=== PATIENT | male | born 1945 | race Caucasian/White ===

== ENCOUNTER 2020-03-10 12:34 | Emergency (ER) | payer MEDICARE, OTHER, SELFPAY ==
--- NOTE | ~2020-03-10 | XR_ITS ---
XR hand RT min 3V DATE: 03/10/2020 14:38 INDICATION: Fourth and fifth finger dislocation; post reduction examination TECHNIQUE: 3 views of right hand COMPARISON: 03/10/2020 right hand FINDINGS: There is reduction of the posterior dislocation at the proximal interphalangeal joints of t he fourth and fifth digits. Small subtle fracture fragments are suggested at the medial aspect of the proximal interphalangeal joint of the fourth digit and there is suggestion of a linear fracture frag ment at the medial aspect of the head of the proximal phalanx of the fifth digit on the oblique view. More definitive evaluation could be obtained by obtaining 4 view individual fourth digit an individu al fifth digit radiographic examinations. Again noted is virtually nondisplaced fracture of the distal phalanx of the fifth digit. Severe osteoarthritic change at the first carpometacarpal joint. IMPRESSION: Reduction of posterior dislocations at the proximal interphalangeal joints of the fourth and fifth digits. Small associated fractures are suggested Virtually nondisplaced fifth distal phalanx fracture Reviewed, dictated and finalized at location A. IMPRESSION: Reduction of posterior dislocations at the proximal interphalangeal joints of the fourth and fifth digits. Small associated fractures are suggeste d Virtually nondisplaced fifth distal phalanx fracture
--- NOTE | ~2020-03-10 | XR_ITS ---
EXAMINATION: XR hand RT 2V DATE: 03/10/2020 12:59 INDICATION: Trauma to the right hand TECHNIQUE: Posteroanterior, oblique and lateral views of the right hand were obtained. COMPARISON: 07/17/2018 FINDINGS: Dorsal dislocations at the right fourth and fifth proximal interphalangeal joints. No definitive asso ciated fracture. There is however a nondisplaced extra-articular fracture across the proximal metadia physeal region of the right fifth distal phalanx. There is also mild widening of the ulnar side of th e fifth distal interphalangeal joint space. Advanced osteoarthritis at the first carpometacarpal join t with remodeling of the base of the first metacarpal with mild secondary dorsal subluxation. Mild os teoarthritis at the first metacarpophalangeal and a few interphalangeal joints. Chronic tiny metallic foreign body in the soft tissues along the radial side of the third proximal phalanx. IMPRESSION: 1. Nondisplaced extra articular fracture across the right fifth distal phalanx. 2. Dorsal dislocation at the right fourth and fifth proximal interphalangeal joints. 3. 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 Reviewed, dictated and finalized at location A. IMPRESSION: 1. Nondisplaced extra articular fracture across the right fifth distal phalanx. 2. Dorsal dislocation at the right fourth and fifth proximal interphalangeal jerald ints. 3. 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
[2020-03-10 12:39] VITALS: BP 150/88; PULSE 92; RESP 18; TEMP 36.1; O2SAT 96
--- NOTE | 2020-03-10 13:38 | ED.UPPEXIN ---
HPI - Extremity Injury (Upper) General Chief Complaint: Extremity Injury, Upper Stated Complaint: right hand injury Time Seen by Provider: 03/10/20 13:07 Source: patient Mode of arrival: ambulatory Limitations: no limitations History of Present Illness HPI narrative: This is a 74-year-old male that presents the emergency department for right hand injury today. Reports he was walking down some gravel steps and slipped and fell. Reports he caught himself with his right hand. Reports since he has had pain in the right fourth and fifth fingers. Reports decreased range of motion in these fingers. Also reports a superficial laceration. Reports he is up-to-date on tetanus. Denies hitting his head, loss of consciousness, other injuries, weakness, or numbness. Related Data Home Medications Medication Instructions Recorded Confirmed acetaminophen 500 mg tablet 500 mg PO Q4H PRN 09/15/19 01/20/20 metoprolol tartrate 25 mg tablet 25 mg PO BID tablet 09/15/19 03/10/20 omeprazole 20 mg capsule,delayed 20 mg PO DAILY 09/15/19 03/10/20 release potassium chloride 20 mEq 20 meq PO DAILY 09/15/19 03/10/20 tablet,extended release rifaximin 550 mg tablet 550 mg PO BID 09/15/19 03/10/20 Allergies Allergy/AdvReac Type Severity Reaction Status Date / Time amoxicillin Allergy Mild Confusion Verified 01/20/20 09:28 Review of Systems Review of Systems: Narrative: CONSTITUTIONAL: Denies fever CARDIOVASCULAR: Denies chest pain RESPIRATORY: Denies dyspnea. SKIN: Reports laceration MUSCULOSKELETAL: Reports joint pain and myalgia. Denies back pain NEUROLOGIC: Denies headache, numbness, or weakness. All systems reviewed & are unremarkable except as noted in HPI and below PMFSH Past Medical History Medical History (Updated 03/10/20 @ 14:51 by Yocasta Lezama PA-C) Aortic valve disease Arthritis of both hands Bilateral shoulder region arthritis Decubitus ulcer, buttock Essential (primary) hypertension Mixed hyperlipidemia Trigger finger of both hands Social History Social History Smoking status: Current every day smoker Alcohol intake: current Gender identity (if verbalized by the patient): Male Exam Narrative: Exam Narrative: GENERAL: Well-appearing, well-nourished, and in no acute distress. HEAD: Normocephalic, atraumatic. EYES: EOMI. NECK: No midline spinal tenderness CHEST: Clear to auscultation. No respiratory distress. No wheezes rales or rhonchi HEART: Regular rate and rhythm. No murmur heard. Normal peripheral pulses. BACK: No midline spinal tenderness EXTREMITIES: Normal range of motion. No edema. Right 4th and 5th fingers with obvious deformity at the PIP joints. Right 4th finger with superficial skin tear on the palmar surface SKIN: Warm, dry, no rash. NEURO: No focal deficits. Alert and oriented x3. PSYCH: Normal mood and affect Course Vital Signs Vital signs: Vital Signs Temperature 97.0 F L 03/10/20 12:39 Pulse Rate 92 03/10/20 12:39 Respiratory Rate 18 03/10/20 12:39 Blood Pressure 150/88 H 03/10/20 12:39 Pulse Oximetry 96 03/10/20 12:39 Temperature 97.0 F L 03/10/20 12:39 Pulse Rate 92 03/10/20 12:39 Respiratory Rate 18 03/10/20 12:39 Blood Pressure 150/88 H 03/10/20 12:39 Pulse Oximetry 96 03/10/20 12:39 Procedures Orthopedic Joint Reduction Joint #1: Orthopedic Joint Reduction Date: 03/10/20 Orthopedic Joint Reduction Time: 14:52 Side: right Joint Reduction Location: finger (4th) Analgesia: nerve block Pre-Procedure Neuro Vascular Exam: normal Local Anesthesia: lidocaine 1% Amount of anesthesic used (mL): 2 Technique used: direct manipulation Post-reduction neuro exam: intact Post-reduction vascular: intact Post Reduction X-Ray Obtained: Yes Post Reduction X-Ray Results: reduced Splint Applied: Yes Patient [place]
[2020-03-10] MEDS: LIDOCAINE HCL 1% LOCAL INJ 20 ML VIAL INFILTRATE (13:51)
== END 2020-03-10 15:31 | disposition home or self-care (01) ==
PROVIDERS: Emergency Provider Emergency Medicine; PCP Family Medicine
DX: S63.284A Dislocation of proximal interphalangeal joint of right ring finger, initial encounter (principal); S62.666A Nondisplaced fracture of distal phalanx of right little finger, initial encounter for closed fracture; I35.8 Other nonrheumatic aortic valve disorders; M19.042 Primary osteoarthritis, left hand; M19.041 Primary osteoarthritis, right hand; M19.012 Primary osteoarthritis, left shoulder; M19.011 Primary osteoarthritis, right shoulder; I10 Essential (primary) hypertension; E78.2 Mixed hyperlipidemia; F17.200 Nicotine dependence, unspecified, uncomplicated; W10.9XXA Fall (on) (from) unspecified stairs and steps, initial encounter
CPT/HCPCS: 26770; 73120; 73130; 99285

== ENCOUNTER 2022-06-13 09:41 | Outpatient (CLI) | payer MEDICARE, SELFPAY ==
--- NOTE | 2022-06-13 11:00 | NEURO_ITS ---
Impression: # Complains of left foot drop. Status post lower back surgery over 10 years ago. # Abnormal study with no responses from left peroneal, Left posterior tibial nerves with absent F-waves. # Needle/EMG exam abnormal with neurogenic changes though no active fibrilations,. Consistent with old damage at the level of L4-5 # Clinical correlation recommended. Nerve Conduction Studies Anti Sensory Summary Table Stim Site NR Peak (ms) P-T Amp (?V) Site1 Site2 Delta-P (ms) Dist (cm) Sourav (m/s) Left Sup Fibular Anti Sensory (Ant Lat Mall) 14 cm 3.9 15.6 14 cm Ant Lat Mall 3.9 16.0 41 Right Sup Fibular Anti Sensory (Ant Lat Mall) 14 cm 3.7 16.5 14 cm Ant Lat Mall 3.7 16.0 43 Left Sural Anti Sensory (Lat Mall) Calf 3.1 12.7 Calf Lat Mall 3.1 16.0 52 Right Sural Anti Sensory (Lat Mall) Calf 3.4 14.2 Calf Lat Mall 3.4 16.0 47 Motor Summary Table Stim Site NR Onset (ms) O-P Amp (mV) Site1 Site2 Delta-0 (ms) Dist (cm) Sourav (m/s) Left Peroneal Motor (Vastus Med) NO RESPONSE Ankle NR Popit NR Right Peroneal Motor (Vastus Med) Ankle 4.9 3.4 Popit Ankle 9.6 40.0 42 Popit 14.5 3.2 Left Tibial Motor (Abd Perez Brev) NO RESPONSE Ankle NR Knee Ankle 0.0 Knee NR Right Tibial Motor (Abd Perez Brev) Ankle 4.7 0.5 Knee Ankle 11.2 45.0 40 Knee 15.9 0.2 F Wave Studies NR F-Lat (ms) L-R F-Lat (ms) Left Peroneal (Mrkrs) (EDB) DISPERSED RESPONSE NR Right Peroneal (Mrkrs) (EDB) 61.10 Left Tibial (Mrkrs) (Abd Hallucis) DISPERSED RESPONSE NR Right Tibial (Mrkrs) (Abd Hallucis) DISPERSED RESPONSE NR EMG Side Muscle Nerve Root Ins Act Fibs Amp Dur Recrt Comment Right AntTibialis Dp Br Fibular L4-5 Nml Nml Nml Nml Nml Right Gastroc Tibial S1-2 Nml Nml Nml Nml Nml Right Fibularis Long Sup Br Fibular L5-S1 Nml Nml Nml Nml Nml Right Flex Dig Long Tibial L5-S2 Nml Nml Nml Nml Nml Right Ext Dig Brev Dp Br Fibular L5, S1 Nml Nml Nml Nml Nml Left AntTibialis Dp Br Fibular L4-5 Nml Nml Nml Nml Reduced Left Gastroc Tibial S1-2 Nml Nml Nml Nml Reduced Left Fibularis Long Sup Br Fibular L5-S1 Nml Nml Nml Nml Reduced Left Flex Dig Long Tibial L5-S2 Nml Nml Nml Nml Reduced Left Ext Dig Brev Dp Br Fibular L5, S1 Nml Nml Nml Nml Reduced Left ExtHallLong Dp Br Fibular L5, S1 Nml Nml Nml Nml Reduced Left Ext Dig Long Dp Br Fibular L5-S1 Nml Nml Nml Nml Reduced MTDD
== END 2022-06-13 09:42 | disposition home or self-care (01) ==
LOC: ANHNEURO 09:43
PROVIDERS: PCP Family Medicine; Visit Provider Family Medicine
DX: G62.9 Polyneuropathy, unspecified (principal); R94.131 Abnormal electromyogram [EMG]
CPT/HCPCS: 95886; 95910

== ENCOUNTER 2022-08-21 10:12 | Outpatient (RCR) | payer MEDICARE, SELFPAY ==
--- NOTE | 2022-08-21 11:58 | PTOPEVDC ---
Assessment and note entered by Heath Atkinson, PT Thank you for referring Morris Leal to [facility].? An evaluation has been completed. No further treatment is needed. 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 Patient has an AFO for the L foot which he reports has improved his gait where he is no longer falling. Reported Pain Level Pain Score 0: Self Report Assessment PT Clinical Summary Morris is a 77 year old male coming into the clinic with L foot drop. He has an AFO that he reports makes it able to walk without falling, which was an issue prior to the orthotic. Patient demonstrates no strength in the L dorsiflexors. Otherwise 3/5 on the L side and grossly 4-/5 on the R side. Patient informed that physical therapy will probably not be able to get strength back in the anterior tibialis, but can work on endurance and balance along with stretching of the L plantarflexors to prevent further loss of dorsiflexion range of motion, but patient reports he is okay where he is at. He took a copy of calf stretches that he states he will try to do. At this time, no issues that could be addressed with scheduled physical therapy, although I told him to get a new script if he is noticing balance issues which he stated he would. Plan of Care PT Services Indicated No Treatment Frequency and evaluation only Duration
== END 2022-08-21 12:56 | disposition home or self-care (01) ==
LOC: ANHPT 10:12
PROVIDERS: PCP Family Medicine; Visit Provider Family Medicine
DX: M21.372 Foot drop, left foot (principal)
CPT/HCPCS: 97161

== ENCOUNTER 2023-02-13 12:18 | Outpatient (CLI) | payer MEDICARE, SELFPAY ==
--- NOTE | 2023-02-14 07:11 | P.PCNPFT_ITS ---
PFT Procedure Performed PFT Procedure Performed Plethysmography (Lung Vol) Diffusing Cap (DLCO) Flow Vol Loop Spirometry w/o Bronchodil PFT Interpretation This is a pulmonary function test with spirometry, plethysmography and diffusing capacity. The test was performed and results interpreted in accordance with the 2019 and 2005 ATS/ERS Task Force guidelines respectively using the Global Lung Function Initiative-2012 reference equations. Patient demonstrated good effort and cooperation. Reproducibility criteria were met. The quality of the spirometry maneuver was Grade A. Findings: Spirometry: The contour the inspiratory and expiratory flow tracing are normal. The FVC is 3.42 L, 82% predicted. The FEV1 is 2.56 L, 82% predicted. The FEV1: FVC ratio 75%. Plethysmography: The total lung capacity is 6.76 L, 94% predicted. The functional residual capacity is 3.56 L, 92% predicted. The residual volume is 3.11 L, 120% predicted. Diffusing capacity: The diffusing capacity unadjusted for hemoglobin and carboxyhemoglobin is 15.9, 63% predicted. The diffusing capacity adjusted for a lveolar volume is 3.12, 84% predicted. Impression: The spirometry is normal without evidence of an obstructive abnormality. The lung volumes are normal. The diffusing capacity unadjusted for hemoglobin and carboxyhemoglobin is mildly decreased and normalizes when adjusted for alveolar volume. There are no prior studies for comparison
== END 2023-02-13 12:19 | disposition home or self-care (01) ==
PROVIDERS: PCP Family Medicine; Visit Provider Nurse Practitioner Adult Health
DX: R06.02 Shortness of breath (principal)
CPT/HCPCS: 94375; 94726; 94729

== ENCOUNTER 2023-08-24 02:39 | Day surgery (SDC) | payer MEDICARE, SELFPAY ==
[2023-08-15 10:13] VITALS: BMI 35.7
--- NOTE | 2023-08-23 13:28 | WPDANESEPPF ---
Anes - Initial Pre Proc Eval Procedure: Operation Date: 08/24/23 13:00 Proposed Procedures p Screening Colonoscopy - Kavin Verma MD Date/Time: 08/23/23 13:28 Surgeon: Kavin Verma MD Pre Op Diagnosis: neoplasm screening Patient Data Age: 78 Gender: M Height: 1.78 m Weight: 113 kg Allergies Allergy/AdvReac Type Severity Reaction Status Date / Time No Known Allergies Allergy Verified 08/15/23 10:13 Home Medications Medication Instructions Recorded Confirmed Type magnesium 1 tab-cap PO DAILY 04/16/20 08/24/23 History vitamin B complex [B 1 tab-cap PO DAILY 04/16/20 08/24/23 History Complex-Vitamin B12] bisoprolol fumarate 10 mg tablet 10 mg PO DAILY 03/24/21 08/15/23 History acetaminophen 500 mg tablet 500 mg PO Q6H PRN Pain 10/26/21 08/15/23 History (Tylenol Extra Strength) aspirin 325 mg tablet 325 mg PO DAILY PRN pain #90 tabs 05/15/22 08/15/23 Rx omeprazole 20 mg capsule,delayed 20 mg PO DAILY 05/15/22 08/15/23 History release cyclobenzaprine 5 mg tablet 5 mg PO QHS PRN muscle spasm #30 09/26/22 08/15/23 Rx tabs tamsulosin 0.4 mg capsule (Flomax) 0.4 mg PO DAILY #90 caps 10/02/22 08/24/23 Rx dutasteride 0.5 mg capsule 0.5 mg PO DAILY #30 caps 06/01/23 08/15/23 Rx potassium chloride 20 mEq 20 meq PO DAILY #90 tabs 06/01/23 08/15/23 Rx tablet,extended release pregabalin 75 mg capsule 75 mg PO BID #60 caps 06/01/23 08/15/23 Rx atorvastatin 40 mg tablet 40 mg PO DAILY #90 tabs 08/02/23 08/15/23 Rx Patient hx anesthesia problems: none Family hx anesthesia problems: none Results Review: All pre-operative results and documents have been reviewed as part of the pre-operative evaluation. [facility] Past Medical History Medical History Abnormality of heart beat Aortic valve disease Arthralgia Arthritis of both hands Arthritis of shoulder region, right, degenerative Bilateral shoulder region arthritis BMI 35.0-35.9,adult BMI 36.0-36.9,adult BMI 38.0-38.9,adult BMI 39.0-39.9,adult Changing skin lesion Chest wall tenderness Chills Constipation Decubitus ulcer, buttock Diarrhea Dizzinesses Dyspnea on exertion Essential (primary) hypertension Fever Headache Hesitancy High blood pressure High cholesterol Hoarseness Mixed hyperlipidemia Nausea Other abnormalities of heart beat Right rotator cuff tendinitis Shortness of breath Stomach pain Subscapularis tendinitis of right shoulder Trigger finger of both hands Weight loss Surgical History Surgical History Status post aortic valve replacement with bioprosthetic valve Family History Family History Mother Hypertension Family history of coronary artery disease Father Hypertension Family history of coronary artery disease CHF (congestive heart failure) Sibling Hypertension Family history of coronary artery disease Acute myocardial infarction Cerebrovascular accident Other Family history of seizure disorder Social History Social History Smoking packs per day: 1 Smoking cigarettes per day: 20.0 Years smoked: 5 Smoking pack-years: 5.00 Smoking status: Current every day smoker Tobacco type: cigarettes Second hand tobacco smoke exposure: No Alcohol intake: current Alcohol use details: occasionally Substance use: never Substance use type: does not use Lack of Transportation: No Lack of Food: Never True Current Housing: I Have Housing Concerned About Future Housing: No Difficulty Paying Gas/Electric Bills: No Difficulty Paying for Meds: No Currently Unemployed: No Education: Bachelor's Degree Difficulty w/ Childcare or Family Care: No Living arrangements: with family Occupation/Education: retired Additional occupat
--- NOTE | 2023-08-24 11:35 | PM.HPGS ---
History of Present Illness History of Present Illness Consent: Risks, benefits, and alternatives have been discussed and questions answered. Patient agrees to proceed with procedure. Chief complaint: neoplasm screening Narrative: Morris Leal is a 78 year old male who was referred for colon cancer screening. His last colonoscopy was about 4 years ago. Review of Systems Review of Systems: All systems reviewed & are unremarkable except as noted in HPI and below PMFSH Past Medical History Medical History Abnormality of heart beat Aortic valve disease Arthralgia Arthritis of both hands Arthritis of shoulder region, right, degenerative Bilateral shoulder region arthritis BMI 35.0-35.9,adult BMI 36.0-36.9,adult BMI 38.0-38.9,adult BMI 39.0-39.9,adult Changing skin lesion Chest wall tenderness Chills Constipation Decubitus ulcer, buttock Diarrhea Dizzinesses Dyspnea on exertion Essential (primary) hypertension Fever Headache Hesitancy High blood pressure High cholesterol Hoarseness Mixed hyperlipidemia Nausea Other abnormalities of heart beat Right rotator cuff tendinitis Shortness of breath Stomach pain Subscapularis tendinitis of right shoulder Trigger finger of both hands Weight loss Surgical History Surgical History Status post aortic valve replacement with bioprosthetic valve Family History Family History Mother Hypertension Family history of coronary artery disease Father Hypertension Family history of coronary artery disease CHF (congestive heart failure) Sibling Hypertension Family history of coronary artery disease Acute myocardial infarction Cerebrovascular accident Other Family history of seizure disorder Social History Social History Smoking packs per day: 1 Smoking cigarettes per day: 20.0 Years smoked: 5 Smoking pack-years: 5.00 Smoking status: Current every day smoker Tobacco type: cigarettes Second hand tobacco smoke exposure: No Alcohol intake: current Alcohol use details: occasionally Substance use: never Substance use type: does not use Lack of Transportation: No Lack of Food: Never True Current Housing: I Have Housing Concerned About Future Housing: No Difficulty Paying Gas/Electric Bills: No Difficulty Paying for Meds: No Currently Unemployed: No Education: Bachelor's Degree Difficulty w/ Childcare or Family Care: No Living arrangements: with family Occupation/Education: retired 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 Gender identity (if verbalized by the patient): Male Spiritual care concerns: No Meds Home Medications and Allergies Home Medications Medication Instructions Recorded Confirmed Type magnesium 1 tab-cap PO DAILY 04/16/20 08/24/23 History vitamin B complex [B 1 tab-cap PO DAILY 04/16/20 08/24/23 History Complex-Vitamin B12] bisoprolol fumarate 10 mg tablet 10 mg PO DAILY 03/24/21 08/15/23 History acetaminophen 500 mg tablet 500 mg PO Q6H PRN Pain 10/26/21 08/15/23 History (Tylenol Extra Strength) aspirin 325 mg tablet 325 mg PO DAILY PRN pain #90 tabs 05/15/22 08/15/23 Rx omeprazole 20 mg capsule,delayed 20 mg PO DAILY 05/15/22 08/15/23 History release cyclobenzaprine 5 mg tablet 5 mg PO QHS PRN muscle spasm #30 09/26/22 08/15/23 Rx tabs tamsulosin 0.4 mg capsule (Flomax) 0.4 mg PO DAILY #90 caps 10/02/22 08/24/23 Rx potassium chloride 20 mEq 20 meq PO DAILY #90 tabs 06/01/23 08/15/23 Rx tablet,extended release pregabalin 75 mg capsule 75 mg PO BID #60 caps 06/01/23 08/15/23 Rx atorvastatin 40 mg tablet 40 mg PO DAILY #90 tabs 08/02/23 08/15/23 Rx dutasteride 0.5 mg capsule 0.5 mg PO DAILY #30
[2023-08-24 11:40] VITALS: BP 134/62; PULSE 72; RESP 18; TEMP 36.5; O2SAT 99
[2023-08-24] MEDS: LACTATED RINGERS 1,000 ML 150 ML IV CONT (11:50)
[2023-08-24] MEDS: GENTAMICIN 80MG/SOD CHL 50 ML 80 MG/50 ML BAG 100 MG IVPB (11:51)
[2023-08-24] MEDS: AMPICILLIN 2 GM/NS 100 ML 2 GM/100 ML BAG IVPB (12:18)
[2023-08-24 12:58] VITALS: BP 104/58; PULSE 68; RESP 19; O2SAT 98
[2023-08-24 13:08] VITALS: BP 114/63; PULSE 68; RESP 21; O2SAT 98
[2023-08-24 13:18] VITALS: BP 119/62; PULSE 70; RESP 20; O2SAT 99
== END 2023-08-24 13:36 | disposition home or self-care (01) ==
PROVIDERS: PCP Family Medicine; Visit Provider Internal Medicine Gastroenterology
PROC: 0DJD8ZZ Inspection of Lower Intestinal Tract, Via Natural or Artificial Opening Endoscopic (ICD-10-PCS; CPT 45378; principal; 2023-08-24 13:00)
DX: Z12.11 Encounter for screening for malignant neoplasm of colon (principal); K64.8 Other hemorrhoids; K92.2 Gastrointestinal hemorrhage, unspecified; I10 Essential (primary) hypertension; E78.00 Pure hypercholesterolemia, unspecified; Z95.2 Presence of prosthetic heart valve; F17.210 Nicotine dependence, cigarettes, uncomplicated; Z79.82 Long term (current) use of aspirin; E66.9 Obesity, unspecified; Z68.35 Body mass index [BMI] 35.0-35.9, adult
CPT/HCPCS: G0121; J0290; J1580; J2704; J7120

== ENCOUNTER 2023-09-04 13:49 | Emergency (ER) | payer MEDICARE, SELFPAY ==
[2023-09-04] VITALS (19 sets, daily range): BP systolic 125–166; BP diastolic 55–74; PULSE 73–90; RESP 12–20; TEMP 36.7–36.9; O2SAT 96–100
[2023-09-04 14:34] LABS: Alanine Aminotransferase 27 U/L (6-50); Albumin Level 3.8 g/dL (3.5-5.1); Alkaline Phosphatase 116 U/L (38-126); Anion Gap 10 mmol/L (8-16); Aspartate Amino Transferase 41 U/L (17-59); Bilirubin,Total 0.5 mg/dL (0.2-1.3); Blood Urea Nitrogen 19 mg/dL (9-20); Calcium 8.7 mg/dL (8.4-10.2); Carbon Dioxide 25 mmol/L (22-30); Chloride 103 mmol/L (98-107); Estimated CRCL calculation 114 ml/min; Estimated Glomerular Filt Rate > 60; Glucose 139 mg/dL (65-110); INR 1.1; Potassium 4.1 mmol/L (3.4-5.0); Prothrombin Time 14.9 Seconds (11.1-14.7); Sodium 138 mmol/L (137-145)
[2023-09-04 14:35] LABS: Partial Thromboplastin Time 33.7 SECONDS (22.3-36.8)
[2023-09-04 15:00] LABS: Basophils Absolute Auto 0.1 K/mm3 (0.0-0.1); Basophils Percent Auto 1.8 % (0.2-1.2); Eosinophils Absolute Auto 0.3 K/mm3 (0-0.3); Eosinophils Percent Auto 5.5 % (0-4.4); Immature Granulocyte Absolute 0.21 K/mm3 (0.00-0.031); Immature Granulocyte Percent A 4.6 % (0-0.5); Lymphocytes Absolute Auto 2.27 K/mm3 (0.9-3.2); Lymphocytes Percent Auto 50.1 % (18.3-44.2); Mean Corpuscular HGB Conc 32.5 g/dl (32-36); Mean Corpuscular Hemoglobin 37.5 pg (26-34); Mean Corpuscular Volume 115.5 fl (80-100); Mean Platelet Volume 10.3 fl (7.4-10.4); Monocytes Absolute Auto 0.5 K/mm3 (0.1-0.6); Monocytes Percent Auto 11.5 % (2.6-8.5); Neutrophils Absolute Auto 1.2 K/mm3 (1.3-6.7); Neutrophils Percent Auto 26.5 % (45.5-73.1); Platelet Count Result 202 k/mm3 (150-375); Red Blood Count 1.68 M/mm3 (4.6-6.20); Red Cell Distribution Width 18.2 % (11.5-14.5); White Blood Count 4.5 K/mm3 (4.5-10.0)
[2023-09-04 15:06] LABS: Hemoglobin 6.3 g/dL (14.0-18.0)
[2023-09-04 15:08] LABS: Hematocrit 19.4 % (42.0-52.0)
[2023-09-04 15:09] LABS: Macrocytosis 1+ (NORMAL); Ovalocytes 1+ (NORMAL); Platelet Estimate Adequate (Adequate); Schistocytes None Seen (NORMAL)
--- NOTE | 2023-09-04 16:37 | ED.GENADULT ---
HPI - General Adult General Chief complaint: Recheck/Abnormal Lab/Rx Stated complaint: low hemoglobin Time Seen by Provider: 09/04/23 15:50 History of Present Illness HPI narrative: Patient is a 78-year-old male who presents to the emergency department this afternoon after he was sent in by his PCP due to a low hemoglobin. Patient's hemoglobin was around 6. Patient admits that he does have a history of bleeding internal hemorrhoids and recently saw Dr. Verma with GI 11 days ago for colonoscopy which identified the internal hemorrhoids. Patient admits that he has no external hemorrhoids and states that in the past with his internal hemorrhoids with prolapse he would push them back in without any issues. He denies any fissures or any active bleeding at this time, states that his bleeding is only when he has a bowel movement. His turret press operator did tell him that he needs follow-up with a surgeon, and the patient does have an appointment tomorrow with Dr. Givens. Patient is currently asymptomatic and hemodynamically stable. Patient denies any chest pain, shortness of breath, nausea, vomiting, abdominal pain, dysuria, hematuria, constipation, diarrhea, melena, hematochezia, fevers or chills. He also denies any headaches, dizziness, lightheadedness, blurry visions, dizziness, focal weakness, numbness and or tingling. There are no other modifying, alleviating, or precipitating factors at this time. Related Data Home Medications Medication Instructions Recorded Confirmed magnesium 1 tab-cap PO DAILY 04/16/20 08/24/23 vitamin B complex [B 1 tab-cap PO DAILY 04/16/20 08/24/23 Complex-Vitamin B12] bisoprolol fumarate 10 mg tablet 10 mg PO DAILY 03/24/21 08/15/23 acetaminophen 500 mg tablet 500 mg PO Q6H PRN Pain 10/26/21 08/15/23 (Tylenol Extra Strength) omeprazole 20 mg capsule,delayed 20 mg PO DAILY 05/15/22 08/15/23 release Allergies Allergy/AdvReac Type Severity Reaction Status Date / Time No Known Allergies Allergy Verified 08/15/23 10:13 Review of Systems Review of Systems: All systems are reviewed and are negative unless stated otherwise in the HPI. [facility] Past Medical History Medical History Abnormality of heart beat Aortic valve disease Arthralgia Arthritis of both hands Arthritis of shoulder region, right, degenerative Bilateral shoulder region arthritis BMI 35.0-35.9,adult BMI 36.0-36.9,adult BMI 38.0-38.9,adult BMI 39.0-39.9,adult Changing skin lesion Chest wall tenderness Chills Constipation Decubitus ulcer, buttock Diarrhea Dizzinesses Dyspnea on exertion Essential (primary) hypertension Fever Headache Hesitancy High blood pressure High cholesterol Hoarseness Mixed hyperlipidemia Nausea Other abnormalities of heart beat Right rotator cuff tendinitis Shortness of breath Stomach pain Subscapularis tendinitis of right shoulder Trigger finger of both hands Weight loss Surgical History Surgical History Status post aortic valve replacement with bioprosthetic valve Family History Family History Mother Hypertension Family history of coronary artery disease Father Hypertension Family history of coronary artery disease CHF (congestive heart failure) Sibling Hypertension Family history of coronary artery disease Acute myocardial infarction Cerebrovascular accident Other Family history of seizure disorder Social History Social History Smoking packs per day: 1 Smoking cigarettes per day: 20.0 Years smoked: 5 Smoking pack-years: 5.00 Smoking status: Current every day smoker Tobacco type: cigarettes Second hand tobacco smoke exposure: No Alcohol intake: current Alcohol use details: occasionally Sub
[2023-09-04] MEDS: SODIUM CHLORIDE 0.9% IV 250 ML 30 ML IV CONT (17:39)
--- NOTE | 2023-09-04 17:50 | PC.NURSE ---
blood consent signed and in chart
[2023-09-04 20:57] LABS: Hematocrit 21.7 % (42.0-52.0)
== END 2023-09-04 21:17 | disposition home or self-care (01) ==
PROVIDERS: Emergency Provider Emergency Medicine; PCP Family Medicine
DX: D64.9 Anemia, unspecified (principal); K64.8 Other hemorrhoids; I10 Essential (primary) hypertension; E78.2 Mixed hyperlipidemia; F17.210 Nicotine dependence, cigarettes, uncomplicated; I25.10 Atherosclerotic heart disease of native coronary artery without angina pectoris
CPT/HCPCS: 36415; 36430; 80053; 85014; 85018; 85025; 85610; 85730; 86850; 86900; 86901; 86923; 96360; 96361; 99285; J7050; P9016

== ENCOUNTER 2023-09-05 10:30 | Inpatient (IN) | payer MEDICARE, SELFPAY ==
--- NOTE | ~2023-09-05 | CT_ITS ---
EXAMINATION: CTA abdomen pelvis DATE: 09/05/2023 22:16 INDICATION: GI bleeding TECHNIQUE: Computed tomography (CT) of the abdomen and pelvis was performed without and with 100 mL O mnipaque-350 intravenous contrast. Postcontrast images timed to the arterial phase. Automated exposur e control and iterative reconstruction technique were employed. The dose-length product was 2985.04 m Gy-cm. COMPARISON: None. FINDINGS: Lower thorax: UIP pattern of peripheral and basilar reticular opacities. Cardiomegaly. Coronary arter y calcification. Liver: Suggestion of a nodular liver border. Peripheral, 4.0 cm masslike area of hyperenhancement at the junction of segment 4A/4B. Biliary/Gallbladder: Gallbladder is normal. No bile duct dilation. Pancreas: No mass or duct dilation. Spleen: Normal. Adrenals:No mass. Kidneys: No suspicious mass, obstructing stone, or hydronephrosis. GI tract: No active GI bleeding. No small or large bowel dilation. Appendix not confidently visualize d Mesentery/Peritoneum: No ascites, mass, or free air. Retroperitoneum: No mass. Atherosclerotic abdominal aortic and/or arterial calcifications. Pelvis: Pelvic organs are within normal limits. Large bilateral hydroceles. Soft Tissues: Soft tissues and body wall unremarkable. Bones: No acute osseous finding. Uncomplicated posterior lumbar fusion hardware. IMPRESSION: No active GI bleeding detected. Possible cirrhotic change in the liver. 4 cm masslike hyperenhancement at the junction of segment 4A/4B. Recommend MRI of the liver without a nd with contrast for further characterization. Bilateral hydroceles. Reviewed, dictated and finalized at location K. N RESOURCES BENEFITS SPECIALIST IMPRESSION: No active GI bleeding detected. Possible cirrhotic change in the liver. 4 cm masslike hyperenhancement at the junction of segment 4A/4B. Recommend MRI of the liver without and with contrast for further characterization. Bilateral hydroceles.
--- NOTE | ~2023-09-05 | US_ITS ---
EXAMINATION: US venous doppler [facility] DATE: 09/09/2023 19:55 INDICATION: left calf pain, swelling . TECHNIQUE: Grayscale images without and with compression and Doppler images of the left lower extremi ty veins were obtained. COMPARISON: None FINDINGS: The left common femoral vein, profunda (deep) femoral vein, femoral vein, popliteal vein, peroneal v ein, posterior tibial veins, gastrocnemius vein, and greater saphenous vein are patent. IMPRESSION: Patent left lower extremity veins. No evidence of deep venous thrombosis. Reviewed, dictated and finalized at location K. SSEAU CONSULTANT
--- NOTE | ~2023-09-05 | NM_ITS ---
EXAMINATION: NM leland stress w perfusion DATE: 09/06/2023 15:33 INDICATION: Shortness of breath TECHNIQUE: Rest images were obtained following intravenous administration of 8.5 mCi Tc99m tetrofosmi n (Myoview). The patient was infused intravenously with Lexiscan (Regadenoson). Then, 37.4 mCi Tc99m tetrofosmin (Myoview) was administered intravenously, and stress images were obtained. Data was recon structed into short axis and horizontal and vertical long axis SPECT images. Gated SPECT images were also obtained. COMPARISON: None. FINDINGS: Small mild defect on the non gated stress and rest images at the apical lateral segment and small mild defect at the apical inferior segment on the non gated post stress images, both of which normalize on the gated post stress imaging. No definitive perfusion defects on the gated post stress imaging to suggest ischemia or infarct. There is normal left ventricular chamber size, wall motion an d ejection fraction. Left ventricular ejection fraction measures 67%. IMPRESSION: 1. No definitive perfusion defects to suggest ischemia or infarct.. 2. Left ventricular ejection fraction measuring 67%. Reviewed, dictated and finalized at location A. VISION NEWSCAST DIRECTOR
--- NOTE | 2023-09-05 12:20 | PC.NURSE ---
RN called Dr Givens's office to get orders for patient. Awaiting a call back.
--- NOTE | 2023-09-05 12:28 | PC.NURSE ---
RN spoke with Dr. Givens via telephone. He states patient's needs a work up and Dr. Matthew is the accepting. RN called Dr. Matthew and no answer at this time. Will call again as RN needs orders for patient.
--- NOTE | 2023-09-05 12:38 | PC.NURSE ---
RN spoke with Komal via telephone and udated him that patient was on unit.
--- NOTE | 2023-09-05 13:34 | PC.NURSE ---
RN waiting for hospitalist to come see patient and put orders in. casino slot supervisor and Induction Coordination Engineer notified.
[2023-09-05 13:46] VITALS: BP 121/52; PULSE 67; RESP 16; TEMP 36.3; O2SAT 70
--- NOTE | 2023-09-05 14:11 | PC.NURSE ---
This patient, Morris Leal, was admitted to Medical Room 349-01. Patient/family oriented to hospital policies and general routines including ID bracelet, bed and alarms, visiting hours, pain management, procedures, bathroom and other care routines, personal items, smoking policy, room service/diet, and visiting hours. Information on how to activate the Rapid Response Team has been discussed. Patient/Family are encouraged to report perceived risks to care and to ask questions if they do not understand what they are told or what they should do.
[2023-09-05] MEDS: LACTATED RINGERS 1,000 ML 100 ML IV CONT (18:05)
[2023-09-05 18:32] LABS: Mean Corpuscular HGB Conc 32.5 g/dl (32-36); Mean Corpuscular Hemoglobin 36.2 pg (26-34); Mean Corpuscular Volume 111.4 fl (80-100); Platelet Count Result 151 k/mm3 (150-375); Red Blood Count 1.85 M/mm3 (4.6-6.20); Red Cell Distribution Width 20.2 % (11.5-14.5); White Blood Count 3.5 K/mm3 (4.5-10.0)
[2023-09-05 18:43] LABS: Alanine Aminotransferase 25 U/L (6-50); Albumin Level 3.7 g/dL (3.5-5.1); Alkaline Phosphatase 122 U/L (38-126); Anion Gap 10 mmol/L (8-16); Aspartate Amino Transferase 40 U/L (17-59); Bilirubin,Total 0.5 mg/dL (0.2-1.3); Blood Urea Nitrogen 17 mg/dL (9-20); Calcium 8.4 mg/dL (8.4-10.2); Carbon Dioxide 25 mmol/L (22-30); Chloride 102 mmol/L (98-107); Estimated CRCL calculation 112 ml/min; Estimated Glomerular Filt Rate > 60; Glucose 133 mg/dL (65-110); Potassium 4.4 mmol/L (3.4-5.0); Sodium 137 mmol/L (137-145)
[2023-09-05 18:44] LABS: Hemoglobin 6.7 g/dL (14.0-18.0)
[2023-09-05 18:45] LABS: Hematocrit 20.6 % (42.0-52.0)
[2023-09-05 18:56] LABS: INR 1.1; Prothrombin Time 14.5 Seconds (11.1-14.7)
[2023-09-05 18:57] LABS: Partial Thromboplastin Time 34.4 SECONDS (22.3-36.8)
--- NOTE | 2023-09-05 19:28 | PM.IMHP ---
H&P: HPI History of Present Illness Date/Time: 09/05/23 19:28 Chief Complaint: Rectal Bleeding Narrative: 78 y/o M presents here with bleeding per rectum with PMH of aortic valve disease, HTN, HLD, headaches, neuropathy, hemorrhoids, and uveitis. Currently awaiting rheumatology workup, likely for RA. Patient reports that he had a colonoscopy performed on 08/24 that revealed bleeding internal hemorrhoids. Since procedure was completed he reports that he has had passage of blood and clots 5-10 times per day. Was referred to general surgery for possible hemorrhoidectomy, has had previous history of bleeding hemorrhoids. In interim, saw his corrections specialist on 09/04? where he discussed these symptoms. Barrel Waterer ordered lab work, while awaiting results. Patient became increasingly weak and hypotensive. Patient then sought treatment in the ED on 09/04. Hemoglobin was 6.3, given 1 unit of red blood cells. Repeat hemoglobin was 7. Patient was discharged due to recent GI workup and general surgery appointment the following day, 09/05. while at this appointment with MD Chon he reported increasing weakness and dizziness, continued passage of blood per rectum. Patient was then sent for direct admission for repeat CBC, BMP, and cardiac workup for surgical clearance in the event it is warranted. Initial admission lab work revealed hemoglobin of 6.7 and hematocrit of 20.6, otherwise unremarkable. Vital stable, blood pressure on low and with map greater than 65. Reports passage of blood 3 times today, described as maroon with clots. Last bowel movement was today - brown, normal consistency, w/o straining. A/Ox4. Review of Systems Review of Systems: All systems reviewed & are unremarkable except as noted in HPI and below [facility] Past Medical History Medical History Abnormality of heart beat Aortic valve disease Arthralgia Arthritis of both hands Arthritis of shoulder region, right, degenerative Bilateral shoulder region arthritis BMI 35.0-35.9,adult Changing skin lesion Chest wall tenderness Chills Constipation Decubitus ulcer, buttock Diarrhea Dizzinesses Dyspnea on exertion Essential (primary) hypertension Fever Headache Hesitancy High blood pressure High cholesterol Hoarseness Mixed hyperlipidemia Nausea Other abnormalities of heart beat Right rotator cuff tendinitis Shortness of breath Stomach pain Subscapularis tendinitis of right shoulder Trigger finger of both hands Weight loss Surgical History Surgical History History of back surgery Status post aortic valve replacement with bioprosthetic valve Family History Family History Mother Hypertension Family history of coronary artery disease Father Hypertension Family history of coronary artery disease CHF (congestive heart failure) Sibling Hypertension Family history of coronary artery disease Acute myocardial infarction Cerebrovascular accident Other Family history of seizure disorder Social History Social History (Updated 09/06/23 @ 02:52 by Mirna Vega APRN) Social History: Lives at home with his . Surrogate decision maker: Lyndsey Leal, spouse. Code Status: Full Code. Smoking packs per day: 1 Smoking cigarettes per day: 20.0 Years smoked: 5 Smoking pack-years: 5.00 Smoking status: Current every day smoker Tobacco type: cigarettes Second hand tobacco smoke exposure: No Alcohol intake: current Alcohol use details: occasionally Substance use: never Substance use type: does not use Lack of Transportation: No Lack of Food: Never True Current Housing: I Have Housing Concerned About Future Housing: No Difficulty Paying Gas/Electric Bills: No Difficulty Paying for Meds: No Currently U
[2023-09-05 20:00] VITALS: PULSE 85
[2023-09-05 21:38] VITALS: BP 115/52; PULSE 83; RESP 16; TEMP 37; O2SAT 100
[2023-09-05] MEDS: SODIUM CHLORIDE 0.9% IV 250 ML 30 ML IV CONT (21:45)
[2023-09-05 21:56] VITALS: BP 132/63; PULSE 82; RESP 16; TEMP 36.9; O2SAT 99
[2023-09-05 22:56] VITALS: BP 127/48; PULSE 87; RESP 18; TEMP 36.9; O2SAT 96
[2023-09-05 23:56] VITALS: BP 124/57; PULSE 89; RESP 18; TEMP 37.1; O2SAT 98
[2023-09-06] VITALS (13 sets, daily range): BP systolic 117–141; BP diastolic 54–75; PULSE 69–95; RESP 14–18; TEMP 36.3–37.1; O2SAT 96–100
--- NOTE | 2023-09-06 | ECG_ITS ---
Measurements Intervals Waterflow Rate: 81 P: 64 WA: 280 QRS: 33 QRSD: 101 T: 3 QT: 373 QTc: 435 Interpretive Statements SINUS RHYTHM WITH FIRST DEGREE AV BLOCK FREQUENT VENTRICULAR PREMATURE COMPLEXES INCOMPLETE RIGHT BUNDLE BRANCH BLOCK BORDERLINE T WAVE ABNORMALITY- INFERIOR LEADS ABNORMAL ECG COMPARED TO ECG 11/25/2018 15:23:17 VENTRICULAR PREMATURE COMPLEXES NOW PRESENT Electronically Signed On 09-06-2023 9:50:04 FRENCH EDGE OPERATOR by Zoran Alan D.O.
[2023-09-06 01:34] LABS: Hematocrit 20.8 % (42.0-52.0); Hemoglobin 6.7 g/dL (14.0-18.0)
[2023-09-06] MEDS: SODIUM CHLORIDE 0.9% IV 250 ML 30 ML IV CONT (04:09)
[2023-09-06] MEDS: ACETAMINOPHEN 500 MG TABLET PO (04:15)
[2023-09-06] MEDS: TAMSULOSIN HCL 0.4 MG CAPSULE PO (08:12)
[2023-09-06] MEDS: THIAMINE HCL 100 MG TABLET PO (08:12)
[2023-09-06] MEDS: CEPHALEXIN 500 MG CAPSULE PO ×2 (08:12→17:19)
[2023-09-06] MEDS: PANTOPRAZOLE SODIUM IV 40 MG VIAL IV PUSH ×2 (08:12→20:55)
[2023-09-06] MEDS: MULTIVITAMINS THERAPEUTIC TAB (*BKC) 1 TABLET PO (08:12)
[2023-09-06] MEDS: ACETAMINOPHEN 500 MG TABLET 1000 MG PO ×2 (08:12→20:55)
[2023-09-06 08:25] LABS: Hematocrit 25.3 % (42.0-52.0); Hemoglobin 8.5 g/dL (14.0-18.0); Mean Corpuscular Hemoglobin 35.1 pg (26-34); Mean Corpuscular Volume 103.3 fl (80-100); Mean Platelet Volume 9.5 fl (7.4-10.4); Platelet Count Result 143 k/mm3 (150-375); Red Blood Count 2.42 M/mm3 (4.6-6.20); Red Cell Distribution Width 20.8 % (11.5-14.5)
[2023-09-06 08:35] LABS: Anion Gap 11 mmol/L (8-16); Blood Urea Nitrogen 13 mg/dL (9-20); Calcium 8.7 mg/dL (8.4-10.2); Carbon Dioxide 25 mmol/L (22-30); Chloride 101 mmol/L (98-107); Estimated CRCL calculation 132 ml/min; Estimated Glomerular Filt Rate > 60; Glucose 118 mg/dL (65-110); Potassium 4.4 mmol/L (3.4-5.0); Sodium 137 mmol/L (137-145)
--- NOTE | 2023-09-06 08:39 | PM.CNCAR ---
Assessment and Plan Assessment and plan (1) Aortic valve disease: Code(s): I35.9 - Nonrheumatic aortic valve disorder, unspecified <DIANA Pate - Last Filed: 09/06/23 15:12> Status: Acute <DIANA Pate - Last Filed: 09/06/23 15:12> Assessment and Plan: Hx severe s/p bio AVR in 2011. Echo earlier this year showed normal functioning prosthetic valve, but he has murmur on exam consistent with . Will check an echo. <DIANA Pate - Last Filed: 09/06/23 15:12> (2) Dyspnea on exertion: Code(s): R06.09 - Other forms of dyspnea <DIANA Pate - Last Filed: 09/06/23 15:12> Status: Acute <DIANA Pate - Last Filed: 09/06/23 15:12> Assessment and Plan: Has been experiencing progressive dyspnea for a couple of months. A degree of this could be related to blood loss and anemia, but also a concern for anginal equivalent. Will check a nuclear stress test to assess for ischemia <DIANA Pate - Last Filed: 09/06/23 15:12> (3) CAD (coronary artery disease): Code(s): I25.10 - Atherosclerotic heart disease of [place] coronary artery without angina pectoris <DIANA Pate - Last Filed: 09/06/23 15:12> Status: Acute <DIAAN Pate - Last Filed: 09/06/23 15:12> Assessment and Plan: s/p CABG x 1 with STERN to LAD. Stable since that time, but as above, dyspnea could be anginal equivalent. ASA on hold because of bleeding. Continue statin. Further recommendations to follow lexiscan. <DIANA Pate - Last Filed: 09/06/23 15:12> History of Present Illness History of Present Illness Consult date/time: 09/06/23 08:39 <DIANA Pate - Last Filed: 09/06/23 15:12> Requesting physician: Mirna Vega APRN <DIANA Pate - Last Filed: 09/06/23 15:12> Consult reason: pre-op evaluation <DIANA Pate - Last Filed: 09/06/23 15:12> Reason For Visit: anemia <DIANA Pate - Last Filed: 09/06/23 15:12> Narrative: Mr. Leal is a 78 year old male with a history of coronary artery disease and aortic stenosis status post STERN to the LAD and bio AVR in 2011. He is hospitalized now with bleeding hemorrhoids and severe anemia. Cardiology has been asked to see him for pre-operative clearance. He has been experiencing shortness of breath for a couple of months as well as some mild lower extremity edema. Shortness of breath most noticeable with exertion. He denies any chest pain. He feels skipped heartbeats from time to time but denies any palpitations. He denies syncope or pre-syncope. Shortness of breath has been present prior to bleeding problems. <DIANA Pate - Last Filed: 09/06/23 15:12> Review of Systems Review of Systems: All systems reviewed & are unremarkable except as noted in HPI and below <DIANA Pate - Last Filed: 09/06/23 15:12> [facility] Past Medical History Medical History: Medical History Abnormality of heart beat Aortic valve disease Arthralgia Arthritis of both hands Arthritis of shoulder region, right, degenerative Bilateral shoulder region arthritis BMI 35.0-35.9,adult Changing skin lesion Chest wall tenderness Chills Constipation Decubitus ulcer, buttock Diarrhea Dizzinesses Dyspnea on exertion Essential (primary) hypertension Fever Headache Hesitancy High blood pressure High cholesterol Hoarseness Mixed hyperlipidemia Nausea Other abnormalities of heart beat Right rotator cuff tendinitis Shortness of breath Stomach pain Subscapularis tendinitis of right shoulder Trigger finger of both hands Weight loss <DIANA Pate - Last Filed: 09/06/23 15:12> Surgical History Surgical History: Surgical History History of back surgery Status post aortic lurdes
[2023-09-06 08:45] LABS: Iron 191 ug/dL (49-181)
[2023-09-06 08:55] LABS: Percent Iron Saturation 60 % (20-50)
--- NOTE | 2023-09-06 09:19 | EST_ITS ---
Patient Info Name: Morris Leal Age: 78 years : 1945 Gender: Male Ht: 70 in Wt: 250 lbs BSA: 2.41 m2 HR: 98 bpm BP: 149 / 71 mmHg Heart Rhythm: Sinus Arrhythmia Exam Date: 09/06/2023 2:39 PM Exam Location: Echo Lab Patient Status: Inpatient Admit Date: 09/05/2023 Staff Ordering Physician: Marija Kirkland Attending Provider: Kena Fiore MD Exercise Technologist: Jailyn Gudino CT Nurse: Marija Kirkland APN Exam Type: CA stress leland w NM Study Info Indications R06.02 - Shortness of breath Z01.810 - Encounter for preprocedural cardiovascular examination A regadenoson stress test was performed. Summary 1. No abnormal ST-T wave changes with lexiscan. 2. Nuclear test results to follow. Protocol: Lexiscan Stress ECG Details Stage: REST Duration (min): 1 min : 49 sec HR (bpm): 97 SBP (mmHg): 146 DBP (mmHg): 71 Stage: REST Duration (min): 8 min : 46 sec HR (bpm): 93 SBP (mmHg): 146 DBP (mmHg): 71 Stage: STAGE 1 Duration (min): 0 min : 59 sec HR (bpm): 104 SBP (mmHg): 125 DBP (mmHg): 71 Stage: RECOVERY Duration (min): 1 min : 0 sec HR (bpm): 103 SBP (mmHg): 125 DBP (mmHg): 71 Stage: RECOVERY Duration (min): 2 min : 0 sec HR (bpm): 100 SBP (mmHg): 125 DBP (mmHg): 71 Stage: RECOVERY Duration (min): 3 min : 0 sec HR (bpm): 95 SBP (mmHg): 146 DBP (mmHg): 54 Stage: RECOVERY Duration (min): 3 min : 30 sec HR (bpm): 97 SBP (mmHg): 146 DBP (mmHg): 54 Rest HR: 93 bpm Peak HR: 109 bpm Rest Sys BP: 146 mmHg Peak Sys BP: 146 mmHg Max Pred HR: 144 bpm % Max Pred HR: 76 % Target HR: 122 bpm Max RPP: 15,914 bpm*mmHg BP Response: Normal blood pressure response Termination Reason: Completed protocol Cardiac Symptoms: None Total Time: 1 min : 0 sec Rest Ulrich BP: 71 mmHg Peak Ulrich BP: 54 mmHg Total Dose: 0.4 mg Resting ECG Normal sinus rhythm - normal ECG. Stress ECG No abnormal ST/T wave changes with exercise. Arrhythmias Occasional PVCs. Report Signatures
[2023-09-06 09:44] LABS: Vitamin B12 > 1000.0 pg/mL (239-931)
--- NOTE | 2023-09-06 11:28 | PM.CNGS ---
Assessment and Plan Assessment and plan (1) Internal bleeding hemorrhoids: Code(s): K64.8 - Other hemorrhoids Status: Acute Assessment and Plan: Will eventually need rectal EUA, hemorrhoidectomy. Cardiology consulted for cardiac workup preop. Will plan optimal timing for surgery depending on further workup. (2) Anemia: Qualifiers: Anemia type: other cause Qualified Code(s): D64.89 - Other specified anemias Code(s): D64.9 - Anemia, unspecified Status: Acute Assessment and Plan: Hgb 6.7 s/p transfusion of 2 units PRBCs with hgb up to 8.5. Trend labs, transfuse as needed. See plan above for bleeding hemorrhoids. GI also consulted. (3) Lower GI bleed: Code(s): K92.2 - Gastrointestinal hemorrhage, unspecified Status: Acute (4) Aortic valve disease: Code(s): I35.9 - Nonrheumatic aortic valve disorder, unspecified Status: Acute (5) CAD (coronary artery disease): Code(s): I25.10 - Atherosclerotic heart disease of [place] coronary artery without angina pectoris Status: Acute Assessment and Plan: Cardiology consulted for pre-operative cardiac evaluation. Plan for echocardiogram and Lexiscan. Plan I have discussed the patient's case and plan of care with Dr. Givens. History of Present Illness Consult details Consult date: 09/06/23 Reason for consult: other (bleeding hemorrhoids) Requesting physician: Mirna Vega APRN Narrative: This is a 78-year-old man who is seen in the office by Dr. Givens yesterday for bleeding hemorrhoids. He has had increasing weakness, shortness of breath, and dizziness. Decision was made to admit the patient for further workup. His hemoglobin was 6.7 yesterday. He has had 2 units of packed red blood cells transfused. Hemoglobin is up to 8.5 today. He had a CTA of the abdomen and pelvis that showed no active GI bleeding, possible cirrhotic changes in the liver. Cardiology was consulted for preoperative cardiac clearance. Our service was consulted for the bleeding internal hemorrhoids. He has an echocardiogram and Lexiscan ordered for today. He still reports some rectal bleeding with bowel movements with no changes since yesterday. Review of Systems Review of Systems: All systems reviewed & are unremarkable except as noted in HPI and below PMFSH Past Medical History Medical History Abnormality of heart beat Aortic valve disease Arthralgia Arthritis of both hands Arthritis of shoulder region, right, degenerative Bilateral shoulder region arthritis BMI 35.0-35.9,adult Changing skin lesion Chest wall tenderness Chills Constipation Decubitus ulcer, buttock Diarrhea Dizzinesses Dyspnea on exertion Essential (primary) hypertension Fever Headache Hesitancy High blood pressure High cholesterol Hoarseness Mixed hyperlipidemia Nausea Other abnormalities of heart beat Right rotator cuff tendinitis Shortness of breath Stomach pain Subscapularis tendinitis of right shoulder Trigger finger of both hands Weight loss Surgical History Surgical History History of back surgery Status post aortic valve replacement with bioprosthetic valve Family History Family History Mother Hypertension Family history of coronary artery disease Father Hypertension Family history of coronary artery disease CHF (congestive heart failure) Sibling Hypertension Family history of coronary artery disease Acute myocardial infarction Cerebrovascular accident Other Family history of seizure disorder Social History Social History Social History: Lives at home with his . Surrogate decision maker: Lyndsey Leal, spouse. Code Status: Full Code. Smo
--- NOTE | 2023-09-06 12:15 | PM.IMPN ---
Progress Note: A&P Assessment and Plan (1) CAD (coronary artery disease): Code(s): I25.10 - Atherosclerotic heart disease of [place] coronary artery without angina pectoris Status: Acute (2) Aortic valve disease: Code(s): I35.9 - Nonrheumatic aortic valve disorder, unspecified Status: Acute (3) Lower GI bleed: Code(s): K92.2 - Gastrointestinal hemorrhage, unspecified Status: Acute (4) Internal bleeding hemorrhoids: Code(s): K64.8 - Other hemorrhoids Status: Acute (5) Anemia: Qualifiers: Anemia type: other cause Qualified Code(s): D64.89 - Other specified anemias Code(s): D64.9 - Anemia, unspecified Status: Acute Plan Problem List 1. lower GI bleed Passage of dark blood, not black or coffee-ground in appearance per rectum 5-10 times per day since 08/24. Requiring transfusion on 09/04. Recent colonoscopy revealed internal bleeding hemorrhoids. Referred to surgery for possible hemorrhoidectomy. - CT abdomen/pelvis 1. No active GI bleeding detected. 2. Possible cirrhotic change in the liver. 3. 4 cm masslike hyperenhancement at the junction of segment 4A/4B. Recommend MRI of the liver without and with contrast for further characterization. 4. Bilateral hydroceles. Pt admitted with rectal bleeding recent colonoscopy few weeks ago shows grade 3 hemorrhoids Pt sp blood transfusion on admission pt has seen cardiology and surgery Pt benefits from a hemorrhoidectomy needs cardiology clearance first pt going for nuclear stress test today 2. anemia Subjective Date/time seen: 09/06/23 12:15 Interval history: 78 y/o M presents here with bleeding per rectum with PMH of aortic valve disease, HTN, HLD, headaches, neuropathy, hemorrhoids, and uveitis.? Currently awaiting rheumatology workup, likely for RA. Patient reports that he had a colonoscopy performed on 08/24 that revealed bleeding internal hemorrhoids. Since procedure was completed he reports that he has had passage of blood and clots 5-10 times per day.? Was referred to general surgery for possible hemorrhoidectomy, has had previous history of bleeding hemorrhoids. ? Pt admitted with rectal bleeding recent colonoscopy few weeks ago shows grade 3 hemorrhoids Pt sp blood transfusion on admission pt has seen cardiology and surgery Pt benefits from a hemorrhoidectomy needs cardiology clearance first pt going for nuclear stress test today Review of Systems Review of Systems: Rectal bleeding has stopped All systems reviewed & are unremarkable except as noted in HPI and below Constitutional: Constitutional: Denies excessive sweating, Denies fatigue, Denies frequent falls and Denies headache(s) ENT: Denies headache(s) Cardiovascular: Cardiovascular: Denies chest pain, Denies irregular heart rhythm, Denies dyspnea and Denies dyspnea on exertion Respiratory: Respiratory: Denies cough, Denies hemoptysis, Denies dyspnea, Denies dyspnea on exertion and Denies wheezing Gastrointestinal: Gastrointestinal: Denies abdominal pain and Denies change in bowel habits Musculoskeletal: Musculoskeletal: Denies no additional musculoskeletal complaints, Denies limited range of motion and Denies numbness Neurologic: Denies frequent falls, Denies headache(s), Denies numbness and Denies convulsions Psychiatric: Psychiatric: Denies hallucinations and Denies tactile hallucinations Endocrine: Endocrine: Denies excessive sweating, Denies fatigue and Denies flushing Allergic/Immunologic: Allergic/Immunologic: Denies wheezing Exam Narrative: Resting in hospital bed with at bedside Const: General: comfortable and no acute distress HENMT: Face/Nose/Sinus: Normal nares present Mouth: Yes dry mucous membranes Eyes: General: appearance normal, both eyes and all related structures Sclera: sclerae normal Pupils: Equal, round and reactive pupils present Resp: Effort & Inspection:
[2023-09-06] MEDS: LACTATED RINGERS 1,000 ML 100 ML IV CONT (12:56)
[2023-09-06] MEDS: ACETAMINOPHEN 325 MG TABLET 650 MG PO (12:59)
--- NOTE | 2023-09-06 13:50 | WPDGICN ---
Assessment and Plan Assessment and plan (1) Lower GI bleed: Code(s): K92.2 - Gastrointestinal hemorrhage, unspecified Status: Acute Assessment and Plan: He was found to have bleeding hemorrhoids at the time of his colonoscopy. Bleeding has persisted in obvious sees been severe because of the significant drop in his blood counts and requirement for transfusion. Surgery is anticipated pending clearance by Cardiology. (2) Internal bleeding hemorrhoids: Code(s): K64.8 - Other hemorrhoids Status: Acute Assessment and Plan: He has been seen by Dr. Carmona in surgery and is due to have hemorrhoidectomy soon. (3) Anemia: Qualifiers: Anemia type: other cause Qualified Code(s): D64.89 - Other specified anemias Code(s): D64.9 - Anemia, unspecified Status: Acute Assessment and Plan: Due to acute blood loss from his hemorrhoids. He has received I believe 3 units of blood total so far. (4) Abnormal CT scan, gastrointestinal tract: Code(s): R93.3 - Abnormal findings on diagnostic imaging of other parts of digestive tract Status: Acute Assessment and Plan: There is a possibility of cirrhosis seen on his CT scan. He has normal LFTs. Cirrhosis and in particular portal hypertension is a cause for hemorrhoids and hemorrhoidal bleeding due to the increased pressure. GI Consult Note Consult date/time: 09/06/23 13:50 HPI: Morris Leal is a 78 year old male who was hospitalized with rectal bleeding and severe anemia. I had seen him for a colonoscopy 13 days ago and found large internal hemorrhoids which in fact were bleeding by the time the procedure was over with. He has had persistent bleeding and so a surgeon yesterday for possible surgery. He has actually been emergency room the night before and was found have a hemoglobin of 6.3. He was given 1 unit of blood which brought it up to 7.0. Admission yesterday he was back to 6.7 and now after transfusion is 8.5. He had been seen blood with almost every bowel movement but did not with the very last 1. Review of Systems Review of Systems: All systems reviewed & are unremarkable except as noted in HPI and below PMFSH Past Medical History Medical History Abnormality of heart beat Aortic valve disease Arthralgia Arthritis of both hands Arthritis of shoulder region, right, degenerative Bilateral shoulder region arthritis BMI 35.0-35.9,adult Changing skin lesion Chest wall tenderness Chills Constipation Decubitus ulcer, buttock Diarrhea Dizzinesses Dyspnea on exertion Essential (primary) hypertension Fever Headache Hesitancy High blood pressure High cholesterol Hoarseness Mixed hyperlipidemia Nausea Other abnormalities of heart beat Right rotator cuff tendinitis Shortness of breath Stomach pain Subscapularis tendinitis of right shoulder Trigger finger of both hands Weight loss Surgical History Surgical History History of back surgery Status post aortic valve replacement with bioprosthetic valve Family History Family History Mother Hypertension Family history of coronary artery disease Father Hypertension Family history of coronary artery disease CHF (congestive heart failure) Sibling Hypertension Family history of coronary artery disease Acute myocardial infarction Cerebrovascular accident Other Family history of seizure disorder Social History Social History Social History: Lives at home with his . Surrogate decision maker: Lyndsey Leal, spouse. Code Status: Full Code. Smoking packs per day: 1 Smoking cigarettes per day: 20.0 Years smoked: 5 Smoking pack-years: 5.00 Smoking status: Current e
[2023-09-06] MEDS: ZOLPIDEM TARTRATE (*CRX) 5 MG TABLET PO (20:55)
[2023-09-07] VITALS (14 sets, daily range): BP systolic 121–162; BP diastolic 64–86; PULSE 73–101; RESP 14–18; TEMP 36.6–37.4; O2SAT 95–100
--- NOTE | 2023-09-07 | ECHO_ITS ---
Patient Info Name: Morris Leal Age: 78 years : 1945 Gender: Male Ht: 70 in Wt: 250 lbs BSA: 2.41 m2 HR: 95 bpm BP: 121 / 65 mmHg Heart Rhythm: Sinus Rhythm Technical Quality: Fair Exam Date: 09/07/2023 11:31 AM Exam Location: Echo Lab Patient Status: Inpatient Admit Date: 09/05/2023 Staff Ordering Physician: Marija Kirkland Training Developer: Katey Schneider RDCS Attending Provider: Kena Fiore MD Referring Physician: Marita LANDON; Exam Type: CA echo dop color flow w con Study Info Indications - aortic stenosis Complete two-dimensional, color flow and Doppler transthoracic echocardiogram is performed with contrast to opacify the left ventricle and to improve the deliniation of the left ventricle endocardial borders. Contrast/Agitated Saline Contrast/Ag. Saline: Definity Amount: 2.00 ml Administered By: Katey Schneider RDCS Existing IV Access: Yes IV Access Condition: patent with no signs of infiltration Summary 1. Mild concentric left ventricular hypertrophy with vigorous systolic function and grade 1 diastolic noncompliance. 2. Biatrial dilation left greater than right. 3. Definity contrast used to improve visualization. 4. Bioprosthetic aortic valve which appears to exhibit good leaflets excursion, mildly stenotic by Doppler. 5. Calcified mitral valve annulus. Left Ventricle Left ventricular chamber dimension is normal. Left ventricular systolic function is hyperdynamic, estimated at >70%. There is mild concentric increased left ventricular wall thickness. The left ventricular diastolic function is grade I diastolic dysfunction. Right Ventricle Right ventricular chamber dimension is normal. Left Atria Left atrial chamber dimension is moderately enlarged. Right Atria Right atrial chamber dimension is mildly enlarged. Aortic Valve There is mild bioprosthetic aortic valve stenosis with a peak velocity of 290.87 cm/s, mean gradient of 21 mmHg, and aortic valve area of 1.23 cm2. Pulmonic Valve The pulmonic valve is normal. There is trace pulmonic regurgitation. Mitral Valve The mitral valve has normal leaflets. The mitral valve annulus is mildly calcified. Tricuspid Valve The tricuspid valve leaflets are normal. There is trace tricuspid valve regurgitation. Pericardium/Pleural The pericardium appears normal. Aorta The aortic root size at the sinus of Valsalva is borderline dilated. Left Ventricular Outflow Tract Name Value Normal LVOT 2D LVOT Diameter 2.09 cm LVOT Doppler LVOT Peak Gradient 4 mmHg LVOT Mean Gradient 2 mmHg LVOT VTI 21.78 cm LVOT VTI/AV VTI Ratio 0.36 LVOT Stroke Volume 74.61 ml LVOT CO 5.77 l/min LVOT CI 2.39 L/min/m2 Pulmonic Valve Name Value Normal RVOT Doppler
[2023-09-07 05:49] LABS: Basophils Absolute Auto 0.1 K/mm3 (0.0-0.1); Basophils Percent Auto 1.8 % (0.2-1.2); Eosinophils Absolute Auto 0.1 K/mm3 (0-0.3); Eosinophils Percent Auto 4.3 % (0-4.4); Hematocrit 21.8 % (42.0-52.0); Hemoglobin 7.2 g/dL (14.0-18.0); Immature Granulocyte Absolute 0.11 K/mm3 (0.00-0.031); Immature Platelet Fraction Pct 3.6 % (0.9-11.2); Lymphocytes Absolute Auto 0.89 K/mm3 (0.9-3.2); Mean Corpuscular Volume 105.8 fl (80-100); Mean Platelet Volume 9.7 fl (7.4-10.4); Monocytes Absolute Auto 0.4 K/mm3 (0.1-0.6); Monocytes Percent Auto 12.9 % (2.6-8.5); Neutrophils Absolute Auto 1.3 K/mm3 (1.3-6.7); Nucleated Red Blood Cells Perc 0.7 % (0.0-0.2); Platelet Count Result 165 k/mm3 (150-375); Red Blood Count 2.06 M/mm3 (4.6-6.20); Red Cell Distribution Width 20.2 % (11.5-14.5); White Blood Count 2.8 K/mm3 (4.5-10.0)
[2023-09-07 06:30] LABS: Anisocytosis 2+ (NORMAL); Hypochromasia 3+ (NORMAL); Macrocytosis 1+ (NORMAL); Platelet Estimate Adequate (Adequate); Schistocytes None Seen (NORMAL)
[2023-09-07] MEDS: CEPHALEXIN 500 MG CAPSULE PO ×2 (09:03→17:37)
[2023-09-07] MEDS: PANTOPRAZOLE SODIUM IV 40 MG VIAL IV PUSH ×2 (09:03→20:32)
[2023-09-07] MEDS: ACETAMINOPHEN 500 MG TABLET 1000 MG PO ×2 (09:04→20:32)
[2023-09-07] MEDS: MULTIVITAMINS THERAPEUTIC TAB (*BKC) 1 TABLET PO (09:04)
[2023-09-07] MEDS: TAMSULOSIN HCL 0.4 MG CAPSULE PO (09:04)
[2023-09-07] MEDS: THIAMINE HCL 100 MG TABLET PO (09:04)
[2023-09-07] MEDS: LACTATED RINGERS 1,000 ML 100 ML IV CONT ×2 (09:12→20:45)
--- NOTE | 2023-09-07 11:53 | PM.IMPN ---
Progress Note: A&P Assessment and Plan (1) CAD (coronary artery disease): Code(s): I25.10 - Atherosclerotic heart disease of [place] coronary artery without angina pectoris Status: Acute (2) Aortic valve disease: Code(s): I35.9 - Nonrheumatic aortic valve disorder, unspecified Status: Acute (3) Lower GI bleed: Code(s): K92.2 - Gastrointestinal hemorrhage, unspecified Status: Acute (4) Internal bleeding hemorrhoids: Code(s): K64.8 - Other hemorrhoids Status: Acute (5) Anemia: Qualifiers: Anemia type: other cause Qualified Code(s): D64.89 - Other specified anemias Code(s): D64.9 - Anemia, unspecified Status: Acute Plan 78 y/o M presents here with bleeding per rectum with PMH of aortic valve disease, HTN, HLD, headaches, neuropathy, hemorrhoids, and uveitis.? Currently awaiting rheumatology workup, likely for RA. Colonoscopy performed on 08/24 revealed bleeding internal hemorrhoids. Since the procedure he had passes of blood and clots 5-10 times per day. Was referred to general surgery for possible hemorrhoidectomy. Needed blood transfusion on admission Planned for hemorrhoidectomy Nuclear stress test 09/06/2023: Negative, EF 67%, ECHO pending per cardiology next several for planned surgery. Patient continues to bleed. H&H down to 7.2. Discussed with General surgery. He will go for the surgery in a.m. Acute blood loss anemia hemoglobin down to 6.3 on admission post transfusion H&H stable. B12 folate normal. Iron profile suggestive of anemia of chronic disease. Positive ISAMAR 1: 40 homogeneous pattern anti double stranded DNA negative BRANDI positive 78 possibility of cirrhosis seen on his CT scan.?normal LFTs.? Cirrhosis and? in particular portal hypertension is a cause for hemorrhoids and hemorrhoidal bleeding due to the increased pressure Severe status post bioprosthetic AVR in 2011 Coronary artery disease status post CABG dvt proph: SCDs Subjective Date/time seen: 09/07/23 11:53 Interval history: 78 y/o M presents here with bleeding per rectum with PMH of aortic valve disease, HTN, HLD, headaches, neuropathy, hemorrhoids, and uveitis.? Currently awaiting rheumatology workup, likely for RA. Colonoscopy performed on 08/24 revealed bleeding internal hemorrhoids. Since the procedure he had passes of blood and clots 5-10 times per day. Was referred to general surgery for possible hemorrhoidectomy. Needed blood transfusion on admission Planned for hemorrhoidectomy Needed cardiac clearance Nuclear stress test 09/06/2023: Negative, EF 67%, ECHO pending Acute blood loss anemia hemoglobin down to 6.3 on admission post transfusion H&H stable. B12 folate normal. Iron profile suggestive of anemia of chronic disease. Positive ISAMAR 1: 40 homogeneous pattern anti double stranded DNA negative BRANDI positive 78 possibility of cirrhosis seen on his CT scan.?normal LFTs.? Cirrhosis and? in particular portal hypertension is a cause for hemorrhoids and hemorrhoidal bleeding due to the increased pressure Severe status post bioprosthetic AVR in 2011 Coronary artery disease status post CABG dvt proph: SCDs Patient continues to bleed intermittently. Denies any dizziness or lightheadedness. Labs were reviewed. Discussed with the patient. Discussed with Cardiology and General surgery. Review of Systems Review of Systems: All systems reviewed & are unremarkable except as noted in HPI and below Exam Narrative: General: Alert, awake, afebrile, in no acute distress HEENT: PERRL, no rhinorrhea, no post nasal drip, oropharynx clear, conjunctival pallor. Neck: Trachea midline, no JVD, no lymphadenopathy. Cardiovascular: Regular rate and rhythm, no murmurs, rubs or gallops, no peripheral edema. Respiratory: Clear to auscultation bilaterally, no wheezing, no rhonchi, no rubs, no respiratory distress. Abdomen: Soft, nontender, nondistended, no rebound, no guarding, no peritoneal s
[2023-09-07] MEDS: PERFLUTREN LIPID MICROSPHERES 1.5 ML VIAL DILUTED TO 10 ML TOTAL VOLUME IV PUSH (12:20)
--- NOTE | 2023-09-07 12:25 | PM.PNCARD ---
Progress Note: A&P Assessment and Plan (1) CAD (coronary artery disease): Code(s): I25.10 - Atherosclerotic heart disease of [place] coronary artery without angina pectoris Status: Acute (2) Aortic valve disease: Code(s): I35.9 - Nonrheumatic aortic valve disorder, unspecified Status: Acute Plan 78-year-old man with chronic coronary disease and aortic valve disease doing well following surgical revascularization and aortic valve replacement about 10 years ago. Lexiscan stress test yesterday is favorable. He should be considered cleared for surgery. Please contact me if you have cardiovascular questions Som Purdy MD [facility] Subjective Date/time seen: Date of service: 09/07/23 12:25 Interval history: Follow-up visit in this 78-year-old man with coronary artery disease and aortic valve disease status post CABG and aortic valve replacement approximately 10 years ago. Admitted to the hospital with lower GI bleeding and severe anemia. No cardiovascular complaints today. Reviewed Lexiscan nuclear stress test from yesterday which showed no evidence of myocardial ischemia and good left ventricular systolic function. No recent cardiovascular complaints. Exam Const: General: comfortable and no acute distress HENMT: Mouth: Yes moist mucous membranes Eyes: Sclera: sclerae normal Neck: Neck: supple and no JVD Resp: Effort & Inspection: normal respiratory effort Auscultation: clear to auscultation bilaterally Cardio: Rate: regular rate Rhythm: regular rhythm Other: Grade 2/6 crescendo decrescendo murmur which does not radiate from the base, no diastolic murmur GI: GI Palp: Yes Soft to palpation Auscultation: normal bowel sounds Skin: General skin exam: normal color Neuro: Other: Alert and oriented x3 Objective Data Vital Signs Vital Signs: Vital Signs - 24 hr 09/06/23 14:00 09/06/23 16:00 09/06/23 20:56 Temperature 37.0 C 36.8 C Pulse Rate 79 95 90 Respiratory Rate 14 18 Blood Pressure 137/58 L 141/54 H Pulse Oximetry 100 96 Oxygen Delivery 09/06/23 20:00 09/07/23 00:00 09/07/23 04:00 Temperature Pulse Rate 86 93 91 Respiratory Rate Blood Pressure Pulse Oximetry Oxygen Delivery 09/07/23 05:51 09/07/23 09:04 09/07/23 08:00 Temperature 36.6 C Pulse Rate 95 93 Respiratory Rate 16 Blood Pressure 121/65 Pulse Oximetry 95 Oxygen Delivery Room Air Intake/Output Intake/Output: Intake & Output 09/04/23 09/05/23 09/06/23 09/07/23 23:59 23:59 23:59 23:59 Intake Total 120 3600 2060 Balance 120 3600 2060 Meds/Results Medications: Active Medications Generic Name Dose Route Start Last Admin Trade Name Freq PRN Reason Stop Dose Admin Acetaminophen 1,000 mg 09/06/23 09:00 09/07/23 09:04 Acetaminophen 500 Mg Tablet PO 1,000 mg Q12HR SHAYY Administration Acetaminophen 650 mg 09/06/23 06:44 09/06/23 12:59 Acetaminophen 325 Mg Tablet PO 650 mg BID PRN Administration Mild Pain (1-3) or Fever Cephalexin HCl 500 mg 09/06/23 09:00 09/07/23 09:03 Cephalexin 500 Mg Capsule PO 09/08/23 21:00 500 mg BID SHAYY Administration Lactated Ringer's 1,000 mls @ 100 mls/hr 09/05/23 17:10 09/07/23 09:12 Lr - Lactated Ringers Iv IV CONT 100 mls/hr .Q10H SHAYY Administration Multivitamins Therapeutic 1 tablet 09/06/23 09:00 09/07/23 09:04 Multivitamins Therapeutic Tab (*Bkc) PO 1 tablet QAM SHAYY Administration Ondansetron HCl 4 mg 09/05/23 17:10 Ondansetron Inj 4 Mg/2 Ml Vial IV PUSH Q4H PRN Nausea And Vomiting Pantoprazole Sodium 40 mg 09/06/23 09:00 09/07/23 09:03 Pantoprazole Sodium Iv 40 Mg Vial IV PUSH 40 mg Q12HR SHAYY Administration Perflutren Lipid Microsphere 0 ml 09/06/23 09:20 Perflutren Lipid Microspheres 1.5 Ml Vial Diluted To 10 Ml Total Volume IV PUSH 09/09/23 09:20 ONCE PRN adequate visualization Protocol
--- NOTE | 2023-09-07 12:44 | IVDEFINITY ---
Prior to administration of IV Definity the patient was educated on the risks and benefits of the imaging enhancing agent including potential adverse side effects. The patient verbalized understanding. Allergies were verified. No exclusion criteria were identified and at least one of the following inclusion criteria were met: 1) physician request, 2) patient technically difficult to image (per the [place] [employer]ocardi[employer] guidelines of two or more segments not discernable within the apical view), or 3) questionable left ventricular function. ?
[2023-09-07] MEDS: SODIUM CHLORIDE 0.9% IV 250 ML 30 ML IV CONT (14:51)
--- NOTE | 2023-09-07 15:37 | PM.PNGS ---
Progress Note: A&P Assessment and Plan (1) Internal bleeding hemorrhoids: Code(s): K64.8 - Other hemorrhoids Status: Acute Assessment and Plan: bleeding has seemingly slowed, currently getting another unit of PRBC (4 total so far), recheck H/H in am, HD stable, NPO p MN in case he needs emergent intervention, otherwise pt is on the OR schedule for Sunday (2) CAD (coronary artery disease): Code(s): I25.10 - Atherosclerotic heart disease of [place] coronary artery without angina pectoris Status: Acute Assessment and Plan: stress test and echo completed, cleared by cardiology at this point Subjective Subjective Date/Time Seen: 09/07/23 15:37 Interval history: feels better, bleeding seems to have slowed Review of Systems Review of Systems: All systems reviewed & are unremarkable except as noted in HPI and below Exam Const: General: cooperative, comfortable and no acute distress Resp: Auscultation: clear to auscultation bilaterally Cardio: Rate: regular rate Rhythm: regular rhythm GI: Inspection: normal to inspection GI Palp: No abdominal tenderness and Yes Soft to palpation Objective Data Vital Signs Vital Signs: Vital Signs - 24 hr 09/06/23 16:00 09/06/23 20:56 09/06/23 20:00 Temperature 36.8 C Pulse Rate 95 90 86 Respiratory Rate 18 Blood Pressure 141/54 H Pulse Oximetry 96 Oxygen Delivery 09/07/23 00:00 09/07/23 04:00 09/07/23 05:51 Temperature 36.6 C Pulse Rate 93 91 95 Respiratory Rate 16 Blood Pressure 121/65 Pulse Oximetry 95 Oxygen Delivery 09/07/23 09:04 09/07/23 08:00 09/07/23 12:00 Temperature Pulse Rate 93 74 Respiratory Rate Blood Pressure Pulse Oximetry Oxygen Delivery Room Air 09/07/23 14:51 09/07/23 14:55 09/07/23 15:11 Temperature 36.8 C 36.8 C 37.1 C Pulse Rate 87 87 87 Respiratory Rate 16 16 14 Blood Pressure 132/66 132/66 132/67 Pulse Oximetry 99 99 100 Oxygen Delivery Intake/Output Intake/Output: Intake & Output 09/04/23 09/05/23 09/06/23 09/07/23 23:59 23:59 23:59 23:59 Intake Total 120 3600 2510 Balance 120 3600 2510 Meds/Results Medications: Active Medications Generic Name Dose Route Start Last Admin Trade Name Michaela PRN Reason Stop Dose Admin Acetaminophen 1,000 mg 09/06/23 09:00 09/07/23 09:04 Acetaminophen 500 Mg Tablet PO 1,000 mg Q12HR SHAYY Administration Acetaminophen 650 mg 09/06/23 06:44 09/06/23 12:59 Acetaminophen 325 Mg Tablet PO 650 mg BID PRN Administration Mild Pain (1-3) or Fever Cephalexin HCl 500 mg 09/06/23 09:00 09/07/23 09:03 Cephalexin 500 Mg Capsule PO 09/08/23 21:00 500 mg BID SHAYY Administration Lactated Ringer's 1,000 mls @ 100 mls/hr 09/05/23 17:10 09/07/23 13:12 Lr - Lactated Ringers Iv IV CONT Not Given .Q10H SHAYY Sodium Chloride 250 mls @ 30 mls/hr 09/07/23 12:36 09/07/23 14:51 Normal Saline Iv IV CONT 09/07/23 20:55 30 mls/hr .Q8H20M STA Administration Multivitamins Therapeutic 1 tablet 09/06/23 09:00 09/07/23 09:04 Multivitamins Therapeutic Tab (*Bkc) PO 1 tablet QAM SHAYY Administration Ondansetron HCl 4 mg 09/05/23 17:10 Ondansetron Inj 4 Mg/2 Ml Vial IV PUSH Q4H PRN Nausea And Vomiting Pantoprazole Sodium 40 mg 09/06/23 09:00 09/07/23 09:03 Pantoprazole Sodium Iv 40 Mg Vial IV PUSH 40 mg Q12HR SHAYY Administration Tamsulosin HCl 0.4 mg 09/06/23 09:00 09/07/23 09:04 Tamsulosin Hcl 0.4 Mg Capsule PO 0.4 mg DAILY SHAYY Administration Thiamine HCl 100 mg 09/06/23 09:00 09/07/23 09:04 Thiamine Hcl 100 Mg Tablet PO 100 mg QAM SHAYY Administration Zolpidem Tartrate 5 mg 09/06/23 16:34 09/06/23 20:55 Zolpidem Tartrate (*Crx) 5 Mg Tablet PO 5 mg HS PRN Administration Insomnia Radiology Results: ITS Impressions Abdomen/Pelvis CTA 09/05/23 22:26 IMPRESSION: No active GI bleeding detected
[2023-09-07 19:23] LABS: Hematocrit 23.6 % (42.0-52.0); Hemoglobin 7.8 g/dL (14.0-18.0)
[2023-09-07] MEDS: ZOLPIDEM TARTRATE (*CRX) 5 MG TABLET PO (20:33)
[2023-09-08] VITALS (11 sets, daily range): BP systolic 111–135; BP diastolic 57–68; PULSE 76–138; RESP 16–18; TEMP 36.6–37; O2SAT 95–97
[2023-09-08 06:22] LABS: Basophils Percent Auto 1.5 % (0.2-1.2); Eosinophils Absolute Auto 0.2 K/mm3 (0-0.3); Eosinophils Percent Auto 6.3 % (0-4.4); Hematocrit 22.5 % (42.0-52.0); Hemoglobin 7.5 g/dL (14.0-18.0); Immature Granulocyte Absolute 0.06 K/mm3 (0.00-0.031); Immature Granulocyte Percent A 2.2 % (0-0.5); Immature Platelet Fraction Pct 3.5 % (0.9-11.2); Lymphocytes Absolute Auto 1.05 K/mm3 (0.9-3.2); Mean Corpuscular HGB Conc 33.3 g/dl (32-36); Mean Corpuscular Hemoglobin 34.1 pg (26-34); Mean Corpuscular Volume 102.3 fl (80-100); Mean Platelet Volume 9.7 fl (7.4-10.4); Monocytes Absolute Auto 0.3 K/mm3 (0.1-0.6); Monocytes Percent Auto 11.5 % (2.6-8.5); Neutrophils Absolute Auto 1.1 K/mm3 (1.3-6.7); Neutrophils Percent Auto 39.5 % (45.5-73.1); Platelet Count Result 159 k/mm3 (150-375); Red Cell Distribution Width 19.9 % (11.5-14.5); White Blood Count 2.7 K/mm3 (4.5-10.0)
[2023-09-08 06:35] LABS: Alanine Aminotransferase 22 U/L (6-50); Albumin Level 3.1 g/dL (3.5-5.1); Alkaline Phosphatase 120 U/L (38-126); Anion Gap 8 mmol/L (8-16); Aspartate Amino Transferase 31 U/L (17-59); Bilirubin,Total 0.6 mg/dL (0.2-1.3); Blood Urea Nitrogen 9 mg/dL (9-20); Carbon Dioxide 26 mmol/L (22-30); Chloride 102 mmol/L (98-107); Estimated CRCL calculation 112 ml/min; Estimated Glomerular Filt Rate > 60; Glucose 115 mg/dL (65-110); Magnesium 1.8 mg/dL (1.6-2.3); Sodium 136 mmol/L (137-145)
[2023-09-08] MEDS: LACTATED RINGERS 1,000 ML 100 ML IV CONT (07:47)
[2023-09-08 09:14] LABS: Anisocytosis 1+ (NORMAL); Hypochromasia 1+ (NORMAL); Platelet Estimate Adequate (Adequate); Schistocytes None Seen (NORMAL); Tear Drop Cells 1+ (NORMAL)
--- NOTE | 2023-09-08 10:48 | PM.PNGS ---
Progress Note: A&P Assessment and Plan (1) Internal bleeding hemorrhoids: Code(s): K64.8 - Other hemorrhoids Status: Acute Assessment and Plan: Patient continues to have some intermittent bleeding from his internal hemorrhoids. So far he has had a total of 4units of packed red blood cells. Today his hemoglobin is 7.5 which is slightly lower than the 7.8 yesterday. He is not tachycardic today. Shortness of breath. We will go ahead and give him a diet today recheck his hemoglobin in the morning. Again keep him NPO in the morning just in case he may need urgent surgery in the morning. He is set to have operative management of his hemorrhoids on Sunday by Dr. Givens. Subjective Subjective Date/Time Seen: 09/08/23 10:48 Interval history: She is frustrated that he did not get breakfast. Plan was to review his hemoglobin level this morning before deciding if he could eat in case he would need an urgent hemorrhoidectomy continued blood loss. He states that he has been having some blood per rectum but otherwise it does not feel any different. Hemoglobin this morning was 7.5. Yesterday morning it was 7.8. Exam GI: Other: Abdomen soft and benign. No active bleeding from from the [place] rectal or anal region. Objective Data Vital Signs Vital Signs: Vital Signs - 24 hr 09/07/23 12:00 09/07/23 14:51 09/07/23 14:55 Temperature 36.8 C 36.8 C Pulse Rate 74 87 87 Respiratory Rate 16 16 Blood Pressure 132/66 132/66 Pulse Oximetry 99 99 Oxygen Delivery 09/07/23 15:11 09/07/23 16:11 09/07/23 16:00 Temperature 37.1 C 37.4 C Pulse Rate 87 92 92 Respiratory Rate 14 16 Blood Pressure 132/67 143/64 H Pulse Oximetry 100 100 Oxygen Delivery 09/07/23 17:11 09/07/23 18:00 09/07/23 21:36 Temperature 37.2 C 37.3 C 36.9 C Pulse Rate 97 97 73 Respiratory Rate 16 16 18 Blood Pressure 149/74 H 162/86 H 132/69 Pulse Oximetry 100 99 97 Oxygen Delivery 09/07/23 20:00 09/08/23 00:00 09/08/23 04:00 Temperature Pulse Rate 101 H 104 H 90 Respiratory Rate Blood Pressure Pulse Oximetry Oxygen Delivery 09/08/23 06:00 09/08/23 08:22 Temperature 37.0 C Pulse Rate 93 Respiratory Rate 16 Blood Pressure 135/68 Pulse Oximetry 96 95 Oxygen Delivery Room Air Intake/Output Intake/Output: Intake & Output 09/05/23 09/06/23 09/07/23 09/08/23 23:59 23:59 23:59 23:59 Intake Total 120 3600 4300 1300 Balance 120 3600 4300 1300 Meds/Results Medications: Active Medications Generic Name Dose Route Start Last Admin Trade Name Freq PRN Reason Stop Dose Admin Acetaminophen 1,000 mg 09/06/23 09:00 09/07/23 20:32 Acetaminophen 500 Mg Tablet PO 1,000 mg Q12HR SHAYY Administration Acetaminophen 650 mg 09/06/23 06:44 09/06/23 12:59 Acetaminophen 325 Mg Tablet PO 650 mg BID PRN Administration Mild Pain (1-3) or Fever Cephalexin HCl 500 mg 09/06/23 09:00 09/07/23 17:37 Cephalexin 500 Mg Capsule PO 09/08/23 21:00 500 mg BID SHAYY Administration Lactated Ringer's 1,000 mls @ 100 mls/hr 09/05/23 17:10 09/08/23 07:47 Lr - Lactated Ringers Iv IV CONT 100 mls/hr .Q10H SHAYY Administration Multivitamins Therapeutic 1 tablet 09/06/23 09:00 09/07/23 09:04 Multivitamins Therapeutic Tab (*Bkc) PO 1 tablet QAM SHAYY Administration Ondansetron HCl 4 mg 09/05/23 17:10 Ondansetron Inj 4 Mg/2 Ml Vial IV PUSH Q4H PRN Nausea And Vomiting Pantoprazole Sodium 40 mg 09/06/23 09:00 09/07/23 20:32 Pantoprazole Sodium Iv 40 Mg Vial IV PUSH 40 mg Q12HR SHAYY Administration Tamsulosin HCl 0.4 mg 09/06/23 09:00 09/07/23 09:04 Tamsulosin Hcl 0.4 Mg Capsule PO 0.4 mg DAILY SHAYY Administration Thiamine HCl 100 mg 09/06/23 09:00 09/07/23 09:04 Thiamine Hcl 100 Mg Tablet PO 100 mg QAM SHAYY Administration Zolpidem Tartrate 5 mg 09/06/23 16:34 09/07/23 20:33 Zolpidem Tartrate (*Crx) 5 Mg Tabl
[2023-09-08] MEDS: ACETAMINOPHEN 500 MG TABLET 1000 MG PO ×2 (11:23→20:27)
[2023-09-08] MEDS: PANTOPRAZOLE SODIUM IV 40 MG VIAL IV PUSH ×2 (11:23→20:28)
[2023-09-08] MEDS: CEPHALEXIN 500 MG CAPSULE PO ×2 (11:23→17:18)
[2023-09-08] MEDS: TAMSULOSIN HCL 0.4 MG CAPSULE PO (11:23)
[2023-09-08] MEDS: MULTIVITAMINS THERAPEUTIC TAB (*BKC) 1 TABLET PO (11:23)
[2023-09-08] MEDS: THIAMINE HCL 100 MG TABLET PO (11:23)
--- NOTE | 2023-09-08 11:25 | PM.IMPN ---
Progress Note: A&P Assessment and Plan (1) CAD (coronary artery disease): Code(s): I25.10 - Atherosclerotic heart disease of [place] coronary artery without angina pectoris Status: Acute (2) Aortic valve disease: Code(s): I35.9 - Nonrheumatic aortic valve disorder, unspecified Status: Acute (3) Lower GI bleed: Code(s): K92.2 - Gastrointestinal hemorrhage, unspecified Status: Acute (4) Internal bleeding hemorrhoids: Code(s): K64.8 - Other hemorrhoids Status: Acute (5) Anemia: Qualifiers: Anemia type: other cause Qualified Code(s): D64.89 - Other specified anemias Code(s): D64.9 - Anemia, unspecified Status: Acute Plan 78 y/o M presents here with bleeding per rectum with PMH of aortic valve disease, HTN, HLD, headaches, neuropathy, hemorrhoids, and uveitis.? Currently awaiting rheumatology workup, likely for RA. Colonoscopy performed on 08/24 revealed bleeding internal hemorrhoids. Since the procedure he had passes of blood and clots 5-10 times per day. Was referred to general surgery for possible hemorrhoidectomy. Needed blood transfusion on admission Planned for hemorrhoidectomy on Sunday Nuclear stress test 09/06/2023: Negative, EF 67%, ECHO pending per cardiology next several for planned surgery. Patient continues to bleed. H&H down to 7.2. Discussed with General surgery. Transfuse 1 unit of PRBC 09/07/2023 Acute blood loss anemia hemoglobin down to 6.3 on admission post transfusion H&H stable. B12 folate normal. Iron profile suggestive of anemia of chronic disease. Positive ISAMAR 1: 40 homogeneous pattern anti double stranded DNA negative BRANDI positive 78 possibility of cirrhosis seen on his CT scan.?normal LFTs.? Cirrhosis and? in particular portal hypertension is a cause for hemorrhoids and hemorrhoidal bleeding due to the increased pressure Severe status post bioprosthetic AVR in 2011 Coronary artery disease status post CABG dvt proph: SCDs Subjective Date/time seen: 09/08/23 11:25 Interval history: 78 y/o M presents here with bleeding per rectum with PMH of aortic valve disease, HTN, HLD, headaches, neuropathy, hemorrhoids, and uveitis.? Currently awaiting rheumatology workup, likely for RA. Colonoscopy performed on 08/24 revealed bleeding internal hemorrhoids. Since the procedure he had passes of blood and clots 5-10 times per day. Was referred to general surgery for possible hemorrhoidectomy. Needed blood transfusion on admission Planned for hemorrhoidectomy Needed cardiac clearance Nuclear stress test 09/06/2023: Negative, EF 67%, ECHO pending Acute blood loss anemia hemoglobin down to 6.3 on admission post transfusion H&H stable. B12 folate normal. Iron profile suggestive of anemia of chronic disease. Positive ISAMAR 1: 40 homogeneous pattern anti double stranded DNA negative BRANDI positive 78 possibility of cirrhosis seen on his CT scan.?normal LFTs.? Cirrhosis and? in particular portal hypertension is a cause for hemorrhoids and hemorrhoidal bleeding due to the increased pressure Severe status post bioprosthetic AVR in 2011 Coronary artery disease status post CABG dvt proph: SCDs Patient continues to bleed intermittently. Denies any dizziness or lightheadedness. Labs were reviewed. Discussed with the patient. Discussed with Cardiology and General surgery. 09/08/23: intermittnet bleed but has slowed down. kiera scheuled for sunday. Review of Systems Review of Systems: All systems reviewed & are unremarkable except as noted in HPI and below Exam Narrative: General: Alert, awake, afebrile, in no acute distress HEENT: PERRL, no rhinorrhea, no post nasal drip, oropharynx clear, conjunctival pallor. Neck: Trachea midline, no JVD, no lymphadenopathy. Cardiovascular: Regular rate and rhythm, no murmurs, rubs or gallops, no peripheral edema. Respiratory: Clear to auscultation bilaterally, no wheezing, no rhonchi, no rubs, no respirator
[2023-09-08] MEDS: bisoproloL fumarate 5 MG TABLET PO (11:47)
[2023-09-08] MEDS: ZOLPIDEM TARTRATE (*CRX) 5 MG TABLET PO (20:28)
[2023-09-09] VITALS (11 sets, daily range): BP systolic 109–125; BP diastolic 48–61; PULSE 74–104; RESP 20; TEMP 36.3–36.9; O2SAT 97–98
[2023-09-09 06:11] LABS: Basophils Absolute Auto 0.1 K/mm3 (0.0-0.1); Basophils Percent Auto 3.3 % (0.2-1.2); Eosinophils Absolute Auto 0.2 K/mm3 (0-0.3); Eosinophils Percent Auto 7.6 % (0-4.4); Hematocrit 23.5 % (42.0-52.0); Hemoglobin 7.6 g/dL (14.0-18.0); Immature Granulocyte Absolute 0.12 K/mm3 (0.00-0.031); Immature Granulocyte Percent A 3.9 % (0-0.5); Lymphocytes Absolute Auto 1.23 K/mm3 (0.9-3.2); Lymphocytes Percent Auto 40.5 % (18.3-44.2); Mean Corpuscular HGB Conc 32.3 g/dl (32-36); Mean Corpuscular Hemoglobin 34.2 pg (26-34); Mean Corpuscular Volume 105.9 fl (80-100); Monocytes Absolute Auto 0.3 K/mm3 (0.1-0.6); Monocytes Percent Auto 8.2 % (2.6-8.5); Neutrophils Absolute Auto 1.1 K/mm3 (1.3-6.7); Neutrophils Percent Auto 36.5 % (45.5-73.1); Platelet Count Result 147 k/mm3 (150-375); Red Blood Count 2.22 M/mm3 (4.6-6.20); Red Cell Distribution Width 19.3 % (11.5-14.5)
[2023-09-09 06:28] LABS: Alanine Aminotransferase 24 U/L (6-50); Albumin Level 3.3 g/dL (3.5-5.1); Alkaline Phosphatase 122 U/L (38-126); Anion Gap 10 mmol/L (8-16); Aspartate Amino Transferase 38 U/L (17-59); Bilirubin,Total 0.6 mg/dL (0.2-1.3); Blood Urea Nitrogen 10 mg/dL (9-20); Calcium 8.3 mg/dL (8.4-10.2); Carbon Dioxide 28 mmol/L (22-30); Chloride 100 mmol/L (98-107); Estimated CRCL calculation 132 ml/min; Estimated Glomerular Filt Rate > 60; Glucose 121 mg/dL (65-110); Potassium 4.1 mmol/L (3.4-5.0); Sodium 138 mmol/L (137-145)
[2023-09-09 07:29] LABS: Anisocytosis 1+ (NORMAL); Platelet Estimate Adequate (Adequate)
[2023-09-09 07:30] LABS: Hypochromasia 1+ (NORMAL); Poikilocytosis 1+ (NORMAL); Schistocytes None Seen (NORMAL); Tear Drop Cells 1+ (NORMAL)
[2023-09-09] MEDS: MULTIVITAMINS THERAPEUTIC TAB (*BKC) 1 TABLET PO (09:07)
[2023-09-09] MEDS: TAMSULOSIN HCL 0.4 MG CAPSULE PO (09:07)
[2023-09-09] MEDS: ACETAMINOPHEN 500 MG TABLET 1000 MG PO ×2 (09:07→21:46)
[2023-09-09] MEDS: THIAMINE HCL 100 MG TABLET PO (09:07)
[2023-09-09] MEDS: bisoproloL fumarate 5 MG TABLET PO (09:07)
--- NOTE | 2023-09-09 11:33 | PM.PNGS ---
Progress Note: A&P Assessment and Plan (1) Lower GI bleed: Code(s): K92.2 - Gastrointestinal hemorrhage, unspecified Status: Acute Assessment and Plan: Lower GI bleeding due to bleeding internal hemorrhoids. He has had enough bleeding to require transfusion of 4units of blood over time. Hemoglobin stable at 7.5 for the past 48hours. He is on the schedule for hemorrhoid surgery by Dr. Givens tomorrow. We will make him NPO after midnight. Subjective Subjective Date/Time Seen: 09/09/23 11:33 Interval history: Patient doing well today. No complaints. Not much blood per rectum overnight. Hemoglobin stable at 7.5. Exam Const: General: comfortable and no acute distress Resp: Effort & Inspection: normal respiratory effort Auscultation: clear to auscultation bilaterally Cardio: Rate: regular rate Rhythm: regular rhythm GI: GI Palp: Yes Soft to palpation, No Firmness to palpation present (GI), No Tenderness to palpation present (GI), No Guarding due to palpation present (GI) and No Hernia present Objective Data Vital Signs Vital Signs: Vital Signs - 24 hr 09/08/23 11:47 09/08/23 12:00 09/08/23 16:00 Temperature Pulse Rate 115 H 138 H 83 Respiratory Rate Blood Pressure Pulse Oximetry Oxygen Delivery 09/08/23 14:00 09/08/23 20:00 09/08/23 20:00 Temperature 36.6 C Pulse Rate 86 79 83 Respiratory Rate 16 16 Blood Pressure 121/63 Pulse Oximetry 97 97 Oxygen Delivery Room Air 09/08/23 22:00 09/09/23 00:00 09/09/23 04:00 Temperature 36.8 C Pulse Rate 76 78 77 Respiratory Rate 18 Blood Pressure 111/57 L Pulse Oximetry 97 Oxygen Delivery 09/09/23 06:00 09/09/23 09:07 09/09/23 09:07 Temperature 36.3 C L Pulse Rate 74 81 Respiratory Rate 20 Blood Pressure 109/54 L Pulse Oximetry 98 Oxygen Delivery Room Air 09/09/23 09:05 09/09/23 08:00 Temperature Pulse Rate 76 Respiratory Rate Blood Pressure 125/61 Pulse Oximetry Oxygen Delivery Intake/Output Intake/Output: Intake & Output 09/06/23 09/07/23 09/08/23 09/09/23 23:59 23:59 23:59 23:59 Intake Total 3600 4300 3080 320 Balance 3600 4300 3080 320 Meds/Results Medications: Active Medications Generic Name Dose Route Start Last Admin Trade Name Michaela PRN Reason Stop Dose Admin Acetaminophen 1,000 mg 09/06/23 09:00 09/09/23 09:07 Acetaminophen 500 Mg Tablet PO 1,000 mg Q12HR SHAYY Administration Acetaminophen 650 mg 09/06/23 06:44 09/06/23 12:59 Acetaminophen 325 Mg Tablet PO 650 mg BID PRN Administration Mild Pain (1-3) or Fever Bisoprolol Fumarate 5 mg 09/08/23 11:20 09/09/23 09:07 Bisoprolol Fumarate 5 Mg Tablet PO 5 mg DAILY SHAYY Administration Multivitamins Therapeutic 1 tablet 09/06/23 09:00 09/09/23 09:07 Multivitamins Therapeutic Tab (*Bkc) PO 1 tablet QAM SHAYY Administration Ondansetron HCl 4 mg 09/05/23 17:10 Ondansetron Inj 4 Mg/2 Ml Vial IV PUSH Q4H PRN Nausea And Vomiting Pantoprazole Sodium 40 mg 09/06/23 09:00 09/08/23 20:28 Pantoprazole Sodium Iv 40 Mg Vial IV PUSH 40 mg Q12HR SHAYY Administration Tamsulosin HCl 0.4 mg 09/06/23 09:00 09/09/23 09:07 Tamsulosin Hcl 0.4 Mg Capsule PO 0.4 mg DAILY SHAYY Administration Thiamine HCl 100 mg 09/06/23 09:00 09/09/23 09:07 Thiamine Hcl 100 Mg Tablet PO 100 mg QAM SHAYY Administration Zolpidem Tartrate 5 mg 09/06/23 16:34 09/08/23 20:28 Zolpidem Tartrate (*Crx) 5 Mg Tablet PO 5 mg HS PRN Administration Insomnia Radiology Results: ITS Impressions Abdomen/Pelvis CTA 09/05/23 22:26 IMPRESSION: No active GI bleeding detected. Possible cirrhotic change in the liver. 4 cm masslike hyperenhancement at the junction of segment 4A/4B. Recommend MRI of the liver without and with contrast for further characterization. Bilateral hydroceles. Lexiscan Stress Test
--- NOTE | 2023-09-09 15:35 | PM.IMPN ---
Progress Note: A&P Assessment and Plan (1) CAD (coronary artery disease): Code(s): I25.10 - Atherosclerotic heart disease of [place] coronary artery without angina pectoris Status: Acute (2) Aortic valve disease: Code(s): I35.9 - Nonrheumatic aortic valve disorder, unspecified Status: Acute (3) Lower GI bleed: Code(s): K92.2 - Gastrointestinal hemorrhage, unspecified Status: Acute (4) Internal bleeding hemorrhoids: Code(s): K64.8 - Other hemorrhoids Status: Acute (5) Anemia: Qualifiers: Anemia type: other cause Qualified Code(s): D64.89 - Other specified anemias Code(s): D64.9 - Anemia, unspecified Status: Acute Plan 78 y/o M presents here with bleeding per rectum with PMH of aortic valve disease, HTN, HLD, headaches, neuropathy, hemorrhoids, and uveitis.? Currently awaiting rheumatology workup, likely for RA. Colonoscopy performed on 08/24 revealed bleeding internal hemorrhoids. Since the procedure he had passes of blood and clots 5-10 times per day. Was referred to general surgery for possible hemorrhoidectomy. Needed blood transfusion on admission Planned for hemorrhoidectomy on Sunday Nuclear stress test 09/06/2023: Negative, EF 67%, ECHO pending per cardiology next several for planned surgery. Patient continues to bleed. H&H down to 7.2. Discussed with General surgery. Transfuse 1 unit of PRBC 09/07/2023 H&H remains stable Acute blood loss anemia hemoglobin down to 6.3 on admission post transfusion H&H stable. B12 folate normal. Iron profile suggestive of anemia of chronic disease. Positive ISAMAR 1: 40 homogeneous pattern anti double stranded DNA negative BRANDI positive 78 possibility of cirrhosis seen on his CT scan.?normal LFTs.? Cirrhosis and? in particular portal hypertension is a cause for hemorrhoids and hemorrhoidal bleeding due to the increased pressure Severe status post bioprosthetic AVR in 2011 Coronary artery disease status post CABG dvt proph: SCDs Subjective Date/time seen: 09/09/23 15:35 Interval history: 78 y/o M presents here with bleeding per rectum with PMH of aortic valve disease, HTN, HLD, headaches, neuropathy, hemorrhoids, and uveitis.? Currently awaiting rheumatology workup, likely for RA. Colonoscopy performed on 08/24 revealed bleeding internal hemorrhoids. Since the procedure he had passes of blood and clots 5-10 times per day. Was referred to general surgery for possible hemorrhoidectomy. Needed blood transfusion on admission Planned for hemorrhoidectomy Needed cardiac clearance Nuclear stress test 09/06/2023: Negative, EF 67%, ECHO pending Acute blood loss anemia hemoglobin down to 6.3 on admission post transfusion H&H stable. B12 folate normal. Iron profile suggestive of anemia of chronic disease. Positive ISAMAR 1: 40 homogeneous pattern anti double stranded DNA negative BRANDI positive 78 possibility of cirrhosis seen on his CT scan.?normal LFTs.? Cirrhosis and? in particular portal hypertension is a cause for hemorrhoids and hemorrhoidal bleeding due to the increased pressure Severe status post bioprosthetic AVR in 2011 Coronary artery disease status post CABG dvt proph: SCDs Patient continues to bleed intermittently. Denies any dizziness or lightheadedness. Labs were reviewed. Discussed with the patient. Discussed with Cardiology and General surgery. 09/08/23: intermittnet bleed but has slowed down. kiera scheuled for sunday. 09/09/2023: Bleeding has slowed down. Heart rate is improved. No chest pain or shortness of breath. Review of Systems Review of Systems: All systems reviewed & are unremarkable except as noted in HPI and below Exam Narrative: General: Alert, awake, afebrile, in no acute distress HEENT: PERRL, no rhinorrhea, no post nasal drip, oropharynx clear, conjunctival pallor. Neck: Trachea midline, no JVD, no lymphadenopathy. Cardiovascular: Regular rate and rhythm, no murmurs, rubs or g
[2023-09-09 21:14] LABS: D Dimer 2.22 ug/mL (<0.48)
[2023-09-09] MEDS: PANTOPRAZOLE 40 MG TABLET PO (21:46)
[2023-09-09] MEDS: ZOLPIDEM TARTRATE (*CRX) 5 MG TABLET PO (21:46)
[2023-09-10] VITALS (17 sets, daily range): BP systolic 110–140; BP diastolic 47–72; PULSE 70–100; RESP 14–18; TEMP 36.4–37.3; O2SAT 94–100
[2023-09-10 06:31] LABS: Basophils Absolute Auto 0.1 K/mm3 (0.0-0.1); Eosinophils Absolute Auto 0.2 K/mm3 (0-0.3); Eosinophils Percent Auto 7.7 % (0-4.4); Hematocrit 21.9 % (42.0-52.0); Immature Granulocyte Absolute 0.12 K/mm3 (0.00-0.031); Immature Granulocyte Percent A 5.1 % (0-0.5); Immature Platelet Fraction Pct 4.4 % (0.9-11.2); Lymphocytes Absolute Auto 1.03 K/mm3 (0.9-3.2); Lymphocytes Percent Auto 43.8 % (18.3-44.2); Mean Corpuscular HGB Conc 31.5 g/dl (32-36); Mean Corpuscular Hemoglobin 33.7 pg (26-34); Mean Corpuscular Volume 106.8 fl (80-100); Mean Platelet Volume 10.2 fl (7.4-10.4); Monocytes Absolute Auto 0.2 K/mm3 (0.1-0.6); Monocytes Percent Auto 9.4 % (2.6-8.5); Neutrophils Absolute Auto 0.7 K/mm3 (1.3-6.7); Platelet Count Result 165 k/mm3 (150-375); Red Blood Count 2.05 M/mm3 (4.6-6.20); White Blood Count 2.4 K/mm3 (4.5-10.0)
[2023-09-10 06:46] LABS: Alanine Aminotransferase 24 U/L (6-50); Albumin Level 2.9 g/dL (3.5-5.1); Alkaline Phosphatase 125 U/L (38-126); Anion Gap 5 mmol/L (8-16); Aspartate Amino Transferase 34 U/L (17-59); Bilirubin,Total 0.5 mg/dL (0.2-1.3); Blood Urea Nitrogen 9 mg/dL (9-20); Calcium 8.1 mg/dL (8.4-10.2); Carbon Dioxide 29 mmol/L (22-30); Chloride 102 mmol/L (98-107); Estimated CRCL calculation 112 ml/min; Estimated Glomerular Filt Rate > 60; Glucose 105 mg/dL (65-110); Magnesium 1.7 mg/dL (1.6-2.3); Potassium 4.4 mmol/L (3.4-5.0); Sodium 136 mmol/L (137-145)
[2023-09-10 07:48] LABS: Hemoglobin 6.9 g/dL (14.0-18.0)
[2023-09-10 07:50] LABS: Anisocytosis 1+ (NORMAL); Hypochromasia 1+ (NORMAL); Ovalocytes 1+ (NORMAL); Platelet Estimate Adequate (Adequate); Schistocytes None Seen (NORMAL)
--- NOTE | 2023-09-10 09:10 | PM.PNCARD ---
Progress Note: A&P Assessment and Plan (1) CAD (coronary artery disease): Code(s): I25.10 - Atherosclerotic heart disease of [place] coronary artery without angina pectoris Status: Acute Assessment and Plan: Negative stress test. Resume aspirin i if/when Okay (2) Aortic valve disease: Code(s): I35.9 - Nonrheumatic aortic valve disorder, unspecified Status: Acute Plan Patient is being transfused today because a hemoglobin of 6.9. Possible surgery later today Subjective Date/time seen: 09/10/23 09:10 Interval history: Follow-up visit in this 78-year-old man with coronary artery disease and aortic valve disease status post CABG and aortic valve replacement approximately 10 years ago. Admitted to the hospital with lower GI bleeding and severe anemia. Date of service 09/10/2023: Denies any chest pain except for when coughing. No shortness of breath. No swelling. Increasingly frustrated Review of Systems Review of Systems: All systems reviewed & are unremarkable except as noted in HPI and below ENT: Reports Normal hearing present Cardiovascular: Cardiovascular: Denies leg edema Respiratory: Respiratory: Reports cough Gastrointestinal: Gastrointestinal: Denies abdominal pain Psychiatric: Psychiatric: Denies anxiety Exam Const: General: comfortable, no acute distress, alert and awake Orientation/consciousness: patient oriented x3 HENMT: Head: normal to inspection Mouth: Yes moist mucous membranes Eyes: General: appearance normal, both eyes and all related structures Sclera: sclerae normal Pupils: Equal, round and reactive pupils present Neck: Neck: normal visual inspection, supple and no JVD Carotids: bruit (bruit vs. transmitted murmur ) Resp: Effort & Inspection: normal respiratory effort Auscultation: clear to auscultation bilaterally and no rales Cardio: Rate: regular rate Rhythm: regular rhythm Heart sounds: S1 normal heart sound present, S2 normal heart sound present and Murmur heart sound present systolic III/ and at the base Other: Grade 2/6 crescendo decrescendo murmur which does not radiate from the base, no diastolic murmur GI: Auscultation: normal bowel sounds Skin: General skin exam: normal color Neuro: General: patient oriented x3 Cranial nerves: Yes Equal, round and reactive pupils present Other: Alert and oriented x3 Extrem: General: normal to inspection Psych: Appearance: grossly normal Mental Status: mental status grossly normal Objective Data Vital Signs Vital Signs: Vital Signs - 24 hr 09/09/23 12:00 09/09/23 14:00 09/09/23 16:00 Temperature 36.7 C Pulse Rate 92 74 93 Respiratory Rate 20 Blood Pressure 114/48 L Pulse Oximetry 97 Oxygen Delivery 09/09/23 22:00 09/09/23 20:00 09/10/23 00:00 Temperature 36.9 C Pulse Rate 79 104 H 84 Respiratory Rate 20 Blood Pressure 118/54 L Pulse Oximetry 98 Oxygen Delivery 09/09/23 20:00 09/10/23 04:00 09/10/23 06:00 Temperature 37.0 C Pulse Rate 72 70 Respiratory Rate 18 Blood Pressure 110/47 L Pulse Oximetry 96 Oxygen Delivery Room Air 09/10/23 08:02 09/10/23 08:18 Temperature Pulse Rate Respiratory Rate Blood Pressure Pulse Oximetry 94 Oxygen Delivery Room Air Room Air Intake/Output Intake/Output: Intake & Output 09/07/23 09/08/23 09/09/23 09/10/23 23:59 23:59 23:59 23:59 Intake Total 4300 3080 800 600 Balance 4300 3080 800 600 Meds/Results Medications: Active Medications Generic Name Dose Route Start Last Admin Trade Name Freq PRN Reason Stop Dose Admin Acetaminophen 1,000 mg 09/06/23 09:00 09/10/23 08:17 Acetaminophen 500 Mg Tablet PO Not Given Q12HR [facility] Acetaminophen 650 mg 09/06/23 06:44 09/06/23 12:59 Acetaminophen 325 Mg Tablet PO 650 mg BID PRN Administration Mild Pain (1-3) or Fever Bisoprolol Fumarate 5 mg 09/08/23 11:20 09/10/23 08:17 Bisoprolol F
--- NOTE | 2023-09-10 10:40 | PC.NURSE ---
Patient has no IV access at this time. Unable to obtain access. RN called vascular access Don to place new IV. Once new IV is placed RN will start blood.
--- NOTE | 2023-09-10 11:59 | WPDHPUPDATE1 ---
History and Physical Update Update Date/Time: 09/10/23 11:59 History and Physical has been reviewed, including an updated exam of the patient. There are NO changes in the patient's condition. Risks, benefits, and alternatives have been discussed and questions answered. Patient agrees to proceed with procedure.
[2023-09-10] MEDS: SODIUM CHLORIDE 0.9% IV 250 ML 30 ML IV CONT (12:39)
--- NOTE | 2023-09-10 13:30 | PC.NURSE ---
Patient off of unit to surgery
[2023-09-10] MEDS: LACTATED RINGERS 1,000 ML 30 ML IV CONT (14:02)
--- NOTE | 2023-09-10 14:08 | WPDANESEPPF ---
Anes - Initial Pre Proc Eval Procedure: Operation Date: 09/10/23 15:00 Proposed Procedures p Rectal Exam Under Anesthesia,Hemorrhoidectomy - Charlotte Givens MD Date/Time: 09/10/23 14:08 Surgeon: Kena Fiore MD Pre Op Diagnosis: anemia Patient Data Age: 78 Gender: M Height: 1.78 m Weight: 113.63 kg Last Vital Signs Temp 36.9 C 09/10/23 12:00 Pulse 86 09/10/23 12:00 Resp 16 09/10/23 12:00 BP 122/61 09/10/23 12:00 Pulse Ox 99 09/10/23 12:00 O2 Del Method Room Air 09/10/23 08:18 Allergies Allergy/AdvReac Type Severity Reaction Status Date / Time No Known Allergies Allergy Verified 09/10/23 14:09 Home Medications Medication Instructions Recorded Confirmed Type magnesium 1 tab-cap PO DAILY 04/16/20 09/05/23 History vitamin B complex [B 1 tab-cap PO DAILY 04/16/20 09/05/23 History Complex-Vitamin B12] bisoprolol fumarate 10 mg tablet 10 mg PO HS 03/24/21 09/05/23 History acetaminophen 500 mg tablet 1,000 mg PO HS 10/26/21 09/06/23 History (Tylenol Extra Strength) aspirin 325 mg tablet 325 mg PO DAILY PRN pain #90 tabs 05/15/22 09/05/23 Rx omeprazole 20 mg capsule,delayed 20 mg PO DAILY 05/15/22 09/05/23 History release tamsulosin 0.4 mg capsule (Flomax) 0.4 mg PO DAILY #90 caps 10/02/22 09/05/23 Rx potassium chloride 20 mEq 20 meq PO DAILY #90 tabs 06/01/23 09/05/23 Rx tablet,extended release pregabalin 75 mg capsule 75 mg PO BID #60 caps 06/01/23 09/05/23 Rx atorvastatin 40 mg tablet See Rx Instructions .Route .COMPLEX 09/05/23 09/05/23 History cephalexin 500 mg capsule See Rx Instructions .Route .COMPLEX 09/05/23 09/05/23 History cyclobenzaprine 5 mg tablet 10 mg PO QHS PRN muscle spasm 09/05/23 09/05/23 History dutasteride 0.5 mg capsule 0.5 mg PO HS 09/05/23 09/05/23 History pyridoxal-5 phosphate 238 mcg PO DAILY 09/05/23 09/05/23 History acetaminophen 650 mg tablet 1,300 mg PO QAM 09/06/23 09/06/23 History Laboratory Tests 09/09/23 09/10/23 09/10/23 20:40 06:04 09:06 WBC 2.4 L K/mm3 (4.5-10.0) RBC 2.05 L M/mm3 (4.6-6.20) Hgb 6.9 L* g/dL (14.0-18.0) Hct 21.9 L % (42.0-52.0) MCV 106.8 H fl (80-100) MCH 33.7 pg (26-34) MCHC 31.5 L g/dl (32-36) RDW 19.0 H % (11.5-14.5) Plt Count 165 k/mm3 (150-375) MPV 10.2 fl (7.4-10.4) Immature Gran % (Auto) 5.1 H % (0-0.5) Neut % (Auto) 31.0 L % (45.5-73.1) Lymph % (Auto) 43.8 % (18.3-44.2) Webb % (Auto) 9.4 H % (2.6-8.5) Eos % (Auto) 7.7 H % (0-4.4) Baso % (Auto) 3.0 H % (0.2-1.2) Lymph # (Auto) 1.03 K/mm3 (0.9-3.2) Webb # (Auto) 0.2 K/mm3 (0.1-0.6) Eos # (Auto) 0.2 K/mm3 (0-0.3) Baso # (Auto) 0.1 K/mm3 (0.0-0.1) Abs Immat Gran (auto) 0.12 H K/mm3 (0.00-0.031) Absolute Neuts (auto) 0.7 L K/mm3 (1.3-6.7) Absolute Nucleated RBC 0.0 K/mm3 (0.0-0.012) Nucleated RBC % 0.0 % (0.0-0.2) Platelet Estimate Adequate (Adequate) % Immature Plt Fraction 4.4 % (0.9-11.2) Hypochromasia 1+ (NORMAL) Anisocytosis 1+ (NORMAL) Ovalocytes 1+ (NORMAL) Schistocytes None seen (NORMAL) D-Dimer 2.22 H ug/mL (<0.48) Sodium 136 L mmol/L (137-145) Potassium 4.4 mmol/L (3.4-5.0) Chloride 102 mmol/L (98-107) Carbon Dioxide 29 mmol/L (22-30) Anion Gap 5 L mmol/L (8-16) BUN 9 mg/dL (9-20) Creatinine 0.60 L mg/dL (0.7-1.3) Estim Creat Clear Calc 112 ml/min Estimated GFR > 60 (59 - ) Glucose 105 mg/dL (65-110) Calcium 8.1 L mg/dL (8.4-10.2) Magnesium 1.7 mg/dL (1.6-2.3) Total Bilirubin 0.5 mg/dL (0.2-1.3) AST 34 U/L (17-
[2023-09-10] MEDS: ceFAZolin 2 GM/D5W 50 ML 2 GM/50 ML BAG IVPB (14:48)
[2023-09-10] MEDS: BUPIVACAINE/EPINEPHRINE 0.5% 50 ML VIAL 30 ML INFILTRATE (15:19)
--- NOTE | 2023-09-10 15:40 | P.OP_ITS ---
Procedure Note - Detailed Date of Procedure 09/10/23 Pre-op Diagnosis bleeding hemorrhoids Post-op Diagnosis Same Procedure Performed Exam under anesthesia, internal and external hemorrhoidectomy involving left lateral and right anterior columns Surgeon Charlotte Givens MD Anesthesia General Indications 78 y/o M c multiple internal and external hemorrhoids with significant bleeding requiring transfusion Findings multiple internal and external hemorrhoids predominately in L lateral and R anterior Description of Procedure The patient was taken to the operating room and placed in the modified lithotomy position. After adequate induction of general anesthesia, the patient was prepped and draped in the normal sterile fashion. A time-out was then done to verify the patient's identity, as well as the procedure being performed. I began by doing a digital exam. There was noted to be some clot and fresh blood in the rectal vault and anal canal. This was suctioned away to allow visualization. There was noted to be multiple internal hemorrhoids, the majority of which were oozing. There was no predominant area of bleeding. There was llso noted to be multiple external hemorrhoids, however no active ble eding was noted. At this point, a bilateral pudendal block was done. Then used the [place] retractor to further evaluate the anal canal as well as rectum, other than internal and external hemorrhoids no other obvious gross pathology was noted. I then began excising the internal hemorrhoids using the hand-held LigaSure device. The hemorrhoids were noted to be in the left lateral and right anterior positions. Multiple hemorrhoids were excised using the LigaSure. The specimens will be sent to pathology for further review. Hemostasis was noted at all excision sites. I then excised the visible external hemorrhoids as well. I then placed a piece of Gelf[place]am covered with lidocaine jelly into the rectal vault. The patient tolerated the procedure and was extubated in the operating room postop. He will be transferred to the recovery room in stable condition. Implants Gelfoam covered with lidocaine jelly in the rectal vault Estimated Blood Loss 25 Drains No Packing Yes Pathology Yes Complications No immediate complications Condition Stable Disposition PACU [facility] Billing Surgery - Charge Forward: Surgery Billing
--- NOTE | 2023-09-10 16:21 | PM.IMPN ---
Progress Note: A&P Assessment and Plan (1) CAD (coronary artery disease): Code(s): I25.10 - Atherosclerotic heart disease of [place] coronary artery without angina pectoris Status: Acute (2) Aortic valve disease: Code(s): I35.9 - Nonrheumatic aortic valve disorder, unspecified Status: Acute (3) Lower GI bleed: Code(s): K92.2 - Gastrointestinal hemorrhage, unspecified Status: Acute (4) Internal bleeding hemorrhoids: Code(s): K64.8 - Other hemorrhoids Status: Acute (5) Anemia: Qualifiers: Anemia type: other cause Qualified Code(s): D64.89 - Other specified anemias Code(s): D64.9 - Anemia, unspecified Status: Acute Plan 78 y/o M presents here with bleeding per rectum with PMH of aortic valve disease, HTN, HLD, headaches, neuropathy, hemorrhoids, and uveitis.? Currently awaiting rheumatology workup, likely for RA. Colonoscopy performed on 08/24 revealed bleeding internal hemorrhoids. Since the procedure he had passes of blood and clots 5-10 times per day. Was referred to general surgery for possible hemorrhoidectomy. Needed blood transfusion on admission Planned for hemorrhoidectomy on Sunday Nuclear stress test 09/06/2023: Negative, EF 67%, ECHO reviewed. Patient continues to bleed. H&H down to 7.2. Discussed with General surgery. Transfuse 1 unit of PRBC 09/07/2023 H&H low again 09/10 will transfuse 1 unit PRBC Acute blood loss anemia hemoglobin down to 6.3 on admission post transfusion H&H stable. B12 folate normal. Iron profile suggestive of anemia of chronic disease. Positive ISAMAR 1: 40 homogeneous pattern anti double stranded DNA negative BRANDI positive 78 possibility of cirrhosis seen on his CT scan.?normal LFTs.? Cirrhosis and? in particular portal hypertension is a cause for hemorrhoids and hemorrhoidal bleeding due to the increased pressure Severe status post bioprosthetic AVR in 2011 Coronary artery disease status post CABG dvt proph: SCDs Subjective Date/time seen: 09/10/23 16:21 Interval history: 78 y/o M presents here with bleeding per rectum with PMH of aortic valve disease, HTN, HLD, headaches, neuropathy, hemorrhoids, and uveitis.? Currently awaiting rheumatology workup, likely for RA. Colonoscopy performed on 08/24 revealed bleeding internal hemorrhoids. Since the procedure he had passes of blood and clots 5-10 times per day. Was referred to general surgery for possible hemorrhoidectomy. Needed blood transfusion on admission Planned for hemorrhoidectomy Needed cardiac clearance Nuclear stress test 09/06/2023: Negative, EF 67%, ECHO pending Acute blood loss anemia hemoglobin down to 6.3 on admission post transfusion H&H stable. B12 folate normal. Iron profile suggestive of anemia of chronic disease. Positive ISAMAR 1: 40 homogeneous pattern anti double stranded DNA negative BRANDI positive 78 possibility of cirrhosis seen on his CT scan.?normal LFTs.? Cirrhosis and? in particular portal hypertension is a cause for hemorrhoids and hemorrhoidal bleeding due to the increased pressure Severe status post bioprosthetic AVR in 2011 Coronary artery disease status post CABG dvt proph: SCDs Patient continues to bleed intermittently. Denies any dizziness or lightheadedness. Labs were reviewed. Discussed with the patient. Discussed with Cardiology and General surgery. 09/08/23: intermittnet bleed but has slowed down. kiera scheuled for sunday. 09/09/2023: Bleeding has slowed down. Heart rate is improved. No chest pain or shortness of breath. 09/10/2023: No overnight events. H&H down. 1 unit of PRBC will S fusion during the surgery today discussed with General surgery. Frustrated about the fact that he was NPO and has continued to bleed Review of Systems Review of Systems: All systems reviewed & are unremarkable except as noted in HPI and below Exam Narrative: General: Alert, awake, afebrile, in no acute distress HEENT: PERRL, no
[2023-09-10] MEDS: ACETAMINOPHEN 325 MG TABLET 650 MG PO (17:55)
[2023-09-10] MEDS: PREGABALIN (*CRX) 75 MG CAPSULE PO (17:55)
[2023-09-10] MEDS: PANTOPRAZOLE 40 MG TABLET PO (20:43)
[2023-09-10] MEDS: DUTASTERIDE 0.5 MG CAPSULE PO (20:43)
[2023-09-10] MEDS: ACETAMINOPHEN 500 MG TABLET 1000 MG PO (20:43)
[2023-09-10] MEDS: ZOLPIDEM TARTRATE (*CRX) 5 MG TABLET PO (20:43)
[2023-09-11] VITALS (11 sets, daily range): BP systolic 110–153; BP diastolic 46–73; PULSE 76–113; RESP 15–18; TEMP 36.6–37.7; O2SAT 95–98
[2023-09-11 05:51] LABS: Basophils Absolute Auto 0.1 K/mm3 (0.0-0.1); Basophils Percent Auto 1.6 % (0.2-1.2); Eosinophils Percent Auto 0.7 % (0-4.4); Hematocrit 25.9 % (42.0-52.0); Hemoglobin 8.5 g/dL (14.0-18.0); Immature Granulocyte Percent A 4.6 % (0-0.5); Lymphocytes Percent Auto 16.2 % (18.3-44.2); Mean Corpuscular HGB Conc 32.8 g/dl (32-36); Mean Corpuscular Hemoglobin 33.5 pg (26-34); Mean Platelet Volume 9.8 fl (7.4-10.4); Monocytes Absolute Auto 0.5 K/mm3 (0.1-0.6); Monocytes Percent Auto 12.3 % (2.6-8.5); Neutrophils Absolute Auto 2.8 K/mm3 (1.3-6.7); Neutrophils Percent Auto 64.6 % (45.5-73.1); Platelet Count Result 149 k/mm3 (150-375); Red Blood Count 2.54 M/mm3 (4.6-6.20); Red Cell Distribution Width 18.3 % (11.5-14.5); White Blood Count 4.3 K/mm3 (4.5-10.0)
[2023-09-11 06:05] LABS: Alanine Aminotransferase 24 U/L (6-50); Albumin Level 3.3 g/dL (3.5-5.1); Alkaline Phosphatase 155 U/L (38-126); Anion Gap 10 mmol/L (8-16); Aspartate Amino Transferase 41 U/L (17-59); Bilirubin,Total 0.7 mg/dL (0.2-1.3); Blood Urea Nitrogen 11 mg/dL (9-20); Calcium 8.3 mg/dL (8.4-10.2); Carbon Dioxide 26 mmol/L (22-30); Chloride 98 mmol/L (98-107); Estimated CRCL calculation 112 ml/min; Estimated Glomerular Filt Rate > 60; Glucose 123 mg/dL (65-110); Magnesium 1.7 mg/dL (1.6-2.3); Potassium 4.5 mmol/L (3.4-5.0); Sodium 134 mmol/L (137-145)
[2023-09-11] MEDS: ACETAMINOPHEN 500 MG TABLET 1000 MG PO ×3 (08:35→23:06)
[2023-09-11] MEDS: MULTIVITAMINS THERAPEUTIC TAB (*BKC) 1 TABLET PO (08:36)
[2023-09-11] MEDS: bisoproloL fumarate 5 MG TABLET PO (08:36)
[2023-09-11] MEDS: PANTOPRAZOLE 40 MG TABLET PO ×2 (08:36→20:42)
[2023-09-11] MEDS: THIAMINE HCL 100 MG TABLET PO (08:37)
[2023-09-11] MEDS: TAMSULOSIN HCL 0.4 MG CAPSULE PO (08:37)
[2023-09-11] MEDS: POTASSIUM CHLORIDE 20 MEQ ER TABLET PO (08:37)
[2023-09-11] MEDS: PREGABALIN (*CRX) 75 MG CAPSULE PO ×2 (08:37→17:37)
[2023-09-11] MEDS: VITAMIN B COMPLEX CAPSULE 1 CAP PO (08:37)
--- NOTE | 2023-09-11 10:55 | PM.PNGS ---
Progress Note: A&P Assessment and Plan (1) Internal and external bleeding hemorrhoids: Code(s): K64.4 - Residual hemorrhoidal skin tags; K64.8 - Other hemorrhoids Status: Acute Assessment and Plan: POD1 REUA, internal and external hemorrhoidectomy. Will adjust pain med regimen to help with pain control Start Metamucil and mineral oil, and sitz baths Will order PT/OT d/t his weakness and help with d/c planning Encouraged increasing activity as tolerated, IS ordered (2) Lower GI bleed: Code(s): K92.2 - Gastrointestinal hemorrhage, unspecified Status: Acute Assessment and Plan: Hgb stable this morning at 8.5. S/p hemorrhoidectomy. No longer having any significant bleeding. See plan above. Plan I have discussed the patient's case and plan of care with Dr. Givens. Subjective Subjective Date/Time Seen: 09/11/23 10:55 Post Op day: 1 (Rectal exam under anesthesia, internal and external hemorrhoidectomy involving left lateral and right anterior columns) Patient reports: still having pain, flatus (with small amount of stool this am) and fever (Tmax 100 F this morning) Interval history: Patient POD1 hemorrhoidectomy. His main complaint is postop burning rectal pain. He is currently sitting up in the chair. He has only taken Tylenol for the pain. He has a poor appetite and didn't eat much breakfast and is requesting a supplement like Ensure. He is also complaining of generalized weakness and states it was difficult to get up out of bed and he was almost too weak to walk to the bathroom last night. He feels very tired as he did not sleep much last night. No other complaints at this time. Exam Const: General: no acute distress and uncomfortable Orientation/consciousness: patient oriented x3 GI: Inspection: non-distended GI Palp: Yes Soft to palpation and No Tenderness to palpation present (GI) Auscultation: normal bowel sounds Other: unable to do rectal exam as he was sitting in the chair and too weak to stand without other staff present for assistance Objective Data Vital Signs Vital Signs: Vital Signs - 24 hr 09/10/23 11:45 09/10/23 12:00 09/10/23 12:00 Temperature 98.6 F 98.4 F Pulse Rate 80 77 86 Respiratory Rate 18 16 Blood Pressure 120/61 122/61 Pulse Oximetry 99 99 Oxygen Delivery Oxygen Flow Rate 09/10/23 14:10 09/10/23 15:36 09/10/23 15:50 Temperature 98.1 F 99.1 F Pulse Rate 87 81 87 Respiratory Rate 16 14 16 Blood Pressure 140/72 136/55 L 138/66 Pulse Oximetry 100 100 100 Oxygen Delivery Room Air Simple Face Mask Simple Face Mask Oxygen Flow Rate 8 8 09/10/23 16:05 09/10/23 16:20 09/10/23 17:00 Temperature 97.9 F Pulse Rate 85 89 91 Respiratory Rate 14 18 16 Blood Pressure 139/64 137/66 140/65 Pulse Oximetry 100 95 96 Oxygen Delivery Room Air Room Air Oxygen Flow Rate 09/10/23 17:15 09/10/23 17:45 09/10/23 19:51 Temperature 97.6 F 98.7 F 98.2 F Pulse Rate 92 100 100 Respiratory Rate 18 18 15 Blood Pressure 138/52 L 135/61 132/65 Pulse Oximetry 96 99 97 Oxygen Delivery Oxygen Flow Rate 09/10/23 20:00 09/10/23 20:00 09/11/23 00:00 Temperature 99.1 F Pulse Rate 87 76 Respiratory Rate 16 Blood Pressure 113/57 L Pulse Oximetry 95 Oxygen Delivery Room Air Oxygen Flow Rate 09/11/23 00:00 09/11/23 04:00 09/11/23 05:35 Temperature 99.3 F Pulse Rate 93 93 109 H Respiratory Rate 18 Blood Pressure 153/73 H Pulse Oximetry 96 Oxygen Delivery Oxygen Flow Rate 09/11/23 08:14 09/11/23 08:14 09/11/23 08:36 Temperature Pulse Rate 105 H 113 H Respiratory Rate Blood Pressure Pulse Oximetry Oxygen Delivery Room Air Oxygen Flow Rate 09/11/23 08:00 09/11/23 10:12 Temperature 100 F H 98.8 F Pulse Rate 109 H Respiratory Rate 18 Blood Pressure 128/62 Pulse Oximetry 95 Oxygen Delivery Oxygen Flow Rate Intake/Output Intake/Output: Intake & Output
--- NOTE | 2023-09-11 14:06 | WPDANESPN ---
Anes - Prog Note Post-Op Date/Time: 09/11/23 14:06 Cardiovascular status: normal Respiratory status: normal Airway patency: baseline Mental status: baseline Post-Op hydration status: normal Vital Signs: Last Vital Signs Temp 36.8 C 09/11/23 13:16 Pulse 91 09/11/23 13:16 Resp 18 09/11/23 13:16 BP 131/51 L 09/11/23 13:16 Pulse Ox 98 09/11/23 13:16 O2 Del Method Room Air 09/11/23 08:14 O2 Flow Rate 8 09/10/23 15:50 Pain Score (VAS): 12/01 I/O: Intake & Output 09/10/23 09/11/23 09/11/23 23:59 07:59 15:59 Intake Total 780 600 480 Balance 780 600 480 Laboratory Tests 09/11/23 05:38 09/11/23 05:38 09/10/23 09/11/23 09:06 05:38 WBC 4.3 L RBC 2.54 L Hgb 8.5 L Hct 25.9 L MCV 102.0 H MCH 33.5 MCHC 32.8 RDW 18.3 H Plt Count 149 L MPV 9.8 Immature Gran % (Auto) 4.6 H Neut % (Auto) 64.6 Lymph % (Auto) 16.2 L [place] % (Auto) 12.3 H Eos % (Auto) 0.7 Baso % (Auto) 1.6 H Lymph # (Auto) 0.70 L [place] # (Auto) 0.5 Eos # (Auto) 0.0 Baso # (Auto) 0.1 Abs Immat Gran (auto) 0.20 H Absolute Neuts (auto) 2.8 Absolute Nucleated RBC 0.0 Nucleated RBC % 0.0 Sodium 134 L Potassium 4.5 Chloride 98 Carbon Dioxide 26 Anion Gap 10 BUN 11 Creatinine 0.60 L Estim Creat Clear Calc 112 Estimated GFR > 60 Glucose 123 H Calcium 8.3 L Magnesium 1.7 Total Bilirubin 0.7 AST 41 ALT 24 Alkaline Phosphatase 155 H Total Protein 7.0 Albumin 3.3 L Crossmatch See Detail Post-procedural complaints: none Patient Feedback: Patient satisfied with anesthetic care.
--- NOTE | 2023-09-11 14:26 | PM.IMPN ---
Progress Note: A&P Assessment and Plan (1) CAD (coronary artery disease): Code(s): I25.10 - Atherosclerotic heart disease of [place] coronary artery without angina pectoris Status: Acute (2) Aortic valve disease: Code(s): I35.9 - Nonrheumatic aortic valve disorder, unspecified Status: Acute (3) Lower GI bleed: Code(s): K92.2 - Gastrointestinal hemorrhage, unspecified Status: Acute (4) Internal bleeding hemorrhoids: Code(s): K64.8 - Other hemorrhoids Status: Acute (5) Anemia: Qualifiers: Anemia type: other cause Qualified Code(s): D64.89 - Other specified anemias Code(s): D64.9 - Anemia, unspecified Status: Acute Plan 78 y/o M presents here with bleeding per rectum with PMH of aortic valve disease, HTN, HLD, headaches, neuropathy, hemorrhoids, and uveitis.? Currently awaiting rheumatology workup, likely for RA. Colonoscopy performed on 08/24 revealed bleeding internal hemorrhoids. Since the procedure he had passes of blood and clots 5-10 times per day. Was referred to general surgery for possible hemorrhoidectomy. Needed blood transfusion on admission Status post hemorrhoidectomy 09/10/2023 Nuclear stress test 09/06/2023: Negative, EF 67%, ECHO reviewed. Patient continues to bleed. H&H down to 7.2. Discussed with General surgery. Transfuse 1 unit of PRBC 09/07/2023 H&H low again 09/10 and transfused. Continue to monitor H&H post surgery Acute blood loss anemia hemoglobin down to 6.3 on admission post transfusion H&H stable. B12 folate normal. Iron profile suggestive of anemia of chronic disease. Positive ISAMAR 1: 40 homogeneous pattern anti double stranded DNA negative BRANDI positive 78 possibility of cirrhosis seen on his CT scan.?normal LFTs.? Cirrhosis and? in particular portal hypertension is a cause for hemorrhoids and hemorrhoidal bleeding due to the increased pressure Severe status post bioprosthetic AVR in 2011 Coronary artery disease status post CABG dvt proph: SCDs Subjective Date/time seen: 09/11/23 14:26 Interval history: 78 y/o M presents here with bleeding per rectum with PMH of aortic valve disease, HTN, HLD, headaches, neuropathy, hemorrhoids, and uveitis.? Currently awaiting rheumatology workup, likely for RA. Colonoscopy performed on 08/24 revealed bleeding internal hemorrhoids. Since the procedure he had passes of blood and clots 5-10 times per day. Was referred to general surgery for possible hemorrhoidectomy. Needed blood transfusion on admission Planned for hemorrhoidectomy Needed cardiac clearance Nuclear stress test 09/06/2023: Negative, EF 67%, ECHO pending Acute blood loss anemia hemoglobin down to 6.3 on admission post transfusion H&H stable. B12 folate normal. Iron profile suggestive of anemia of chronic disease. Positive ISAMAR 1: 40 homogeneous pattern anti double stranded DNA negative BRANDI positive 78 possibility of cirrhosis seen on his CT scan.?normal LFTs.? Cirrhosis and? in particular portal hypertension is a cause for hemorrhoids and hemorrhoidal bleeding due to the increased pressure Severe status post bioprosthetic AVR in 2011 Coronary artery disease status post CABG dvt proph: SCDs Patient continues to bleed intermittently. Denies any dizziness or lightheadedness. Labs were reviewed. Discussed with the patient. Discussed with Cardiology and General surgery. 09/08/23: intermittnet bleed but has slowed down. kiera scheuled for sunday. 09/09/2023: Bleeding has slowed down. Heart rate is improved. No chest pain or shortness of breath. 09/10/2023: No overnight events. H&H down. 1 unit of PRBC will S fusion during the surgery today discussed with General surgery. Frustrated about the fact that he was NPO and has continued to bleed 09/11/2023: Underwent hemorrhoidectomy yesterday. H&H is stable. Mild fever this a.m.. Denies any abdominal pain. Review of Systems Review of Systems: All systems review
[2023-09-11] MEDS: MINERAL OIL 30 ML UDC 15 ML PO (17:36)
[2023-09-11] MEDS: PSYLLIUM POWDER PACKET 1 PACKET PO (17:38)
[2023-09-11] MEDS: DUTASTERIDE 0.5 MG CAPSULE PO (20:42)
[2023-09-11] MEDS: ZOLPIDEM TARTRATE (*CRX) 5 MG TABLET PO (20:43)
[2023-09-12] VITALS: BP 98/40; PULSE 81; PULSE 87; RESP 13; TEMP 36.8; O2SAT 93
[2023-09-12 04:00] VITALS: BP 96/50; PULSE 72; PULSE 73; RESP 14; TEMP 37.3; O2SAT 95
[2023-09-12 05:42] LABS: Basophils Absolute Auto 0.1 K/mm3 (0.0-0.1); Basophils Percent Auto 1.8 % (0.2-1.2); Eosinophils Absolute Auto 0.1 K/mm3 (0-0.3); Eosinophils Percent Auto 2.1 % (0-4.4); Hemoglobin 7.4 g/dL (14.0-18.0); Immature Granulocyte Absolute 0.11 K/mm3 (0.00-0.031); Immature Granulocyte Percent A 3.3 % (0-0.5); Immature Platelet Fraction Pct 4.2 % (0.9-11.2); Lymphocytes Absolute Auto 1.32 K/mm3 (0.9-3.2); Lymphocytes Percent Auto 39.9 % (18.3-44.2); Mean Corpuscular HGB Conc 32.2 g/dl (32-36); Mean Corpuscular Hemoglobin 33.6 pg (26-34); Mean Corpuscular Volume 104.5 fl (80-100); Mean Platelet Volume 9.8 fl (7.4-10.4); Monocytes Absolute Auto 0.3 K/mm3 (0.1-0.6); Monocytes Percent Auto 9.1 % (2.6-8.5); Neutrophils Absolute Auto 1.5 K/mm3 (1.3-6.7); Neutrophils Percent Auto 43.8 % (45.5-73.1); Platelet Count Result 146 k/mm3 (150-375); Red Cell Distribution Width 18.6 % (11.5-14.5); White Blood Count 3.3 K/mm3 (4.5-10.0)
[2023-09-12 05:53] LABS: Alanine Aminotransferase 23 U/L (6-50); Albumin Level 2.9 g/dL (3.5-5.1); Alkaline Phosphatase 128 U/L (38-126); Anion Gap 3 mmol/L (8-16); Aspartate Amino Transferase 39 U/L (17-59); Bilirubin,Total 0.6 mg/dL (0.2-1.3); Blood Urea Nitrogen 13 mg/dL (9-20); Carbon Dioxide 32 mmol/L (22-30); Chloride 99 mmol/L (98-107); Estimated CRCL calculation 112 ml/min; Estimated Glomerular Filt Rate > 60; Glucose 108 mg/dL (65-110); Magnesium 1.9 mg/dL (1.6-2.3); Potassium 4.2 mmol/L (3.4-5.0); Sodium 134 mmol/L (137-145)
[2023-09-12 08:00] VITALS: BP 103/54; PULSE 84; PULSE 95; RESP 16; TEMP 37.1; O2SAT 95
[2023-09-12] MEDS: MINERAL OIL 30 ML UDC 15 ML PO (09:01)
[2023-09-12] MEDS: TAMSULOSIN HCL 0.4 MG CAPSULE PO (09:01)
[2023-09-12] MEDS: VITAMIN B COMPLEX CAPSULE 1 CAP PO (09:01)
[2023-09-12] MEDS: PREGABALIN (*CRX) 75 MG CAPSULE PO (09:01)
[2023-09-12] MEDS: PANTOPRAZOLE 40 MG TABLET PO (09:01)
[2023-09-12] MEDS: THIAMINE HCL 100 MG TABLET PO (09:01)
[2023-09-12] MEDS: POTASSIUM CHLORIDE 20 MEQ ER TABLET PO (09:01)
[2023-09-12] MEDS: MULTIVITAMINS THERAPEUTIC TAB (*BKC) 1 TABLET PO (09:01)
[2023-09-12 09:02] VITALS: PULSE 95
[2023-09-12] MEDS: bisoproloL fumarate 5 MG TABLET PO (09:02)
[2023-09-12] MEDS: PSYLLIUM POWDER PACKET 1 PACKET PO (09:04)
[2023-09-12] MEDS: HYDROcodone/acetaminophen (*CRX) 5-325 MG TABLET 1 TAB PO (09:07)
--- NOTE | 2023-09-12 10:18 | PM.PNGS ---
Progress Note: A&P Assessment and Plan (1) Internal and external bleeding hemorrhoids: Code(s): K64.4 - Residual hemorrhoidal skin tags; K64.8 - Other hemorrhoids Status: Acute Assessment and Plan: doing well, cont routine postop care, ok to dc home from surgical standpoint Subjective Subjective Date/Time Seen: 09/12/23 10:18 Interval history: feels better, more strength, energy, no more bleeding c bowel fxn Review of Systems Review of Systems: All systems reviewed & are unremarkable except as noted in HPI and below Exam Const: General: cooperative, comfortable and no acute distress Resp: Auscultation: clear to auscultation bilaterally Cardio: Rate: regular rate Rhythm: regular rhythm GI: GI Palp: No abdominal tenderness Objective Data Vital Signs Vital Signs: Vital Signs - 24 hr 09/11/23 13:16 09/11/23 12:00 09/11/23 16:00 Temperature 36.8 C Pulse Rate 91 92 107 H Respiratory Rate 18 Blood Pressure 131/51 L Pulse Oximetry 98 Oxygen Delivery 09/11/23 20:00 09/12/23 00:00 09/11/23 20:00 Temperature 36.6 C 36.8 C Pulse Rate 94 87 97 Respiratory Rate 15 13 Blood Pressure 110/46 L 98/40 L Pulse Oximetry 95 93 Oxygen Delivery 09/11/23 20:00 09/12/23 00:00 09/12/23 04:00 Temperature 37.3 C Pulse Rate 81 72 Respiratory Rate 14 Blood Pressure 96/50 L Pulse Oximetry 95 Oxygen Delivery Room Air 09/12/23 04:00 09/12/23 08:00 09/12/23 09:02 Temperature 37.1 C Pulse Rate 73 84 95 Respiratory Rate 16 Blood Pressure 103/54 L Pulse Oximetry 95 Oxygen Delivery 09/12/23 08:00 Temperature Pulse Rate Respiratory Rate Blood Pressure Pulse Oximetry Oxygen Delivery Room Air Intake/Output Intake/Output: Intake & Output 09/09/23 09/10/23 09/11/23 09/12/23 23:59 23:59 23:59 23:59 Intake Total 800 1780 1870 740 Balance 800 1780 1870 740 Meds/Results Medications: Active Medications Generic Name Dose Route Start Last Admin Trade Name Freq PRN Reason Stop Dose Admin Acetaminophen 1,000 mg 09/11/23 11:06 09/12/23 06:59 Acetaminophen 500 Mg Tablet PO Not Given Q6H SHAYY Hydrocodone Bitart/Acetaminophen 1 tab 09/11/23 11:06 09/12/23 09:07 Hydrocodone/Acetaminophen (*Crx) 5-325 Mg Tablet PO 1 tab Q4H PRN Administration Pain Rated 4-6 Hydrocodone Bitart/Acetaminophen 1 tab 09/11/23 11:06 Hydrocodone/Acetaminophen (*Crx) 10-325 Mg Tablet PO Q6H PRN Pain Rated 7-10 Bisoprolol Fumarate 5 mg 09/08/23 11:20 09/12/23 09:02 Bisoprolol Fumarate 5 Mg Tablet PO 5 mg DAILY SHAYY Administration Dutasteride 0.5 mg 09/10/23 21:00 09/11/23 20:42 Dutasteride 0.5 Mg Capsule PO 0.5 mg HS SHAYY Administration Mineral Oil 15 ml 09/11/23 17:00 09/12/23 09:01 Mineral Oil 30 Ml Udc PO 15 ml BID SHAYY Administration Multivitamins Therapeutic 1 tablet 09/06/23 09:00 09/12/23 09:01 Multivitamins Therapeutic Tab (*Bkc) PO 1 tablet QAM SHAYY Administration Ondansetron HCl 4 mg 09/05/23 17:10 Ondansetron Inj 4 Mg/2 Ml Vial IV PUSH Q4H PRN Nausea And Vomiting Pantoprazole Sodium 40 mg 09/09/23 21:00 09/12/23 09:01 Pantoprazole 40 Mg Tablet PO 40 mg Q12HR SHAYY Administration Potassium Chloride 20 meq 09/11/23 09:00 09/12/23 09:01 Potassium Chloride 20 Meq Er Tablet PO 20 meq DAILY SHAYY Administration Pregabalin 75 mg 09/10/23 17:00 09/12/23 09:01 Pregabalin (*Crx) 75 Mg Capsule PO 75 mg BID SHAYY Administration Psyllium Hydrophilic Mucilloid 1 packet 09/11/23 17:00 09/12/23 09:04 Psyllium Powder Packet PO 1 packet BID SHAYY Administration Tamsulosin HCl 0.4 mg 09/06/23 09:00 09/12/23 09:01 Tamsulosin Hcl 0.4 Mg Capsule PO 0.4 mg DAILY SHAYY Administration Thiamine HCl 100 mg 09/06/23 09:00 09/12/23 09:01 Thiamine Hcl 100 Mg Tablet PO 100 mg QAM SHAYY Administration Vitamin B Complex
--- NOTE | 2023-09-12 13:18 | PM.DS ---
DS: Admitting Diagnosis Discharge Date 09/12/23 Admitting Diagnosis rectal bleeding DS: Discharge Diagnosis Discharge Diagnosis (1) CAD (coronary artery disease): Code(s): I25.10 - Atherosclerotic heart disease of [place] coronary artery without angina pectoris Status: Chronic Assessment and Plan: post CABG Nuclear stress test 09/06/2023: Negative, EF 67%, ECHO reviewed. continue to follow with mural painter (2) Aortic valve disease: Code(s): I35.9 - Nonrheumatic aortic valve disorder, unspecified Status: Chronic (3) Lower GI bleed: Code(s): K92.2 - Gastrointestinal hemorrhage, unspecified Status: Acute (4) Internal bleeding hemorrhoids: Code(s): K64.8 - Other hemorrhoids Status: Acute Assessment and Plan: possibility of cirrhosis seen on his CT scan.?normal LFTs.?Cirrhosis and in particular portal hypertension is a cause for hemorrhoids and hemorrhoidal bleeding due to the increased pressure Status post hemorrhoidectomy 09/10/2023 To f/u with Dr. Givens in 2 weeks (5) Anemia: Qualifiers: Anemia type: other cause Qualified Code(s): D64.89 - Other specified anemias Code(s): D64.9 - Anemia, unspecified Status: Acute Assessment and Plan: Iron profile suggestive of anemia of chronic disease. s/p PRBC transfusion H&H stabilized Plan Positive ISAMAR 1: 40 homogeneous pattern anti double stranded DNA negative BRANDI positive 78 DS: Summary Hospital Course Hospital Course: Patient is a 78 y/o M admitted with bleeding per rectum with PMH of aortic valve disease, HTN, HLD, headaches, neuropathy, hemorrhoids, and uveitis. Currently awaiting rheumatology workup, likely for RA. Patient reports that he had a colonoscopy performed on 08/24 that revealed bleeding internal hemorrhoids. Since procedure was completed he reported that he has had passage of blood and clots 5-10 times per day. Was referred to general surgery for possible hemorrhoidectomy, has had previous history of bleeding hemorrhoids. In interim, saw his mural painter where he discussed these symptoms. [facility] ordered lab work. Patient became increasingly weak and hypotensive. Patient then sought treatment in the ED on 09/04. Hemoglobin was 6.3, given 1 unit of red blood cells. Repeat hemoglobin was 7. Patient was discharged due to recent GI workup and general surgery appointment the following day, 09/05. while at this appointment with MD Chon he reported increasing weakness and dizziness, continued passage of blood per rectum. Patient was then sent for direct admission for repeat CBC, BMP, and cardiac workup for surgical clearance in the event it is warranted. Initial admission lab work revealed hemoglobin of 6.7 and hematocrit of 20.6, otherwise unremarkable. [facility] transfusion, H&H has stabilized. VSS. Hemorrhoidectomy done yesterday by surgery, cleared for d/c home today. He reports soreness, but denies active bleeding from his rectum this morning. PT d/c him today, stable to return home with his and follow up outpatient. Status at Discharge Functional status at discharge: independent ambulation Overall status at discharge: patient is progressing back to baseline Exam Narrative: General: Alert, awake, afebrile, in no acute distress HEENT: PERRL, EOM intact Neck: Trachea midline, no JVD, no lymphadenopathy. Cardiovascular: RRR. no murmurs, rubs or gallops, no peripheral edema. Respiratory: Clear to auscultation bilaterally, no wheezing, no rhonchi, no rubs, no respiratory distress. Abdomen: Soft, nontender, nondistended, no rebound, no guarding. Musculoskeletal: No joint swelling or deformity, normal muscle tone. Skin: No rashes or petechia, no signs of infection. Psychiatric: Alert and oriented, normal behavior and judgment for situation. Neurological: A&O x3.?No cranial defects DS: Data Data Completed and Pending Pending studies at discharge:
== END 2023-09-12 12:25 | disposition home or self-care (01) | DRG 348 ==
PROVIDERS: Family Medicine; Internal Medicine; Student in an Organized Health Care Education/Training Program; Surgery; Admitting Provider General Practice; PCP Family Medicine; Visit Provider Nurse Practitioner
PROC: 06BY3ZC Excision of Hemorrhoidal Plexus, Percutaneous Approach (ICD-10-PCS; principal; 2023-09-10 15:00)
DX: K64.8 Other hemorrhoids (principal); D62 Acute posthemorrhagic anemia; K76.6 Portal hypertension; K74.60 Unspecified cirrhosis of liver; I35.9 Nonrheumatic aortic valve disorder, unspecified; I25.10 Atherosclerotic heart disease of native coronary artery without angina pectoris; G62.9 Polyneuropathy, unspecified; I10 Essential (primary) hypertension; E78.2 Mixed hyperlipidemia; F17.210 Nicotine dependence, cigarettes, uncomplicated; M13.812 Other specified arthritis, left shoulder; M13.811 Other specified arthritis, right shoulder; M13.842 Other specified arthritis, left hand; M13.841 Other specified arthritis, right hand; Z95.2 Presence of prosthetic heart valve; Z95.1 Presence of aortocoronary bypass graft; E66.9 Obesity, unspecified; Z68.35 Body mass index [BMI] 35.0-35.9, adult; K64.4 Residual hemorrhoidal skin tags
CPT/HCPCS: 36415; 36430; 74174; 78452; 80048; 80053; 82607; 82728; 82746; 83540; 83550; 83735; 84425; 85014; 85018; 85025; 85027; 85055; 85380; 85610; 85730; 86850; 86900; 86901; 86923; 88304; 93005; 93017; 93971; 96360; 96361; 97161; 97165; 99285; A9270; A9502; C8929; C9113; J0690; J1100; J2405; J2704; J2785; J3010; J7050; J7120; P9016; Q9957; Q9967

== ENCOUNTER 2023-09-13 20:44 | Inpatient (IN) | payer MEDICARE, SELFPAY ==
[2023-09-13] VITALS (8 sets, daily range): BP systolic 94–111; BP diastolic 37–54; PULSE 86–93; RESP 15–24; TEMP 36.6–36.9; O2SAT 95–99
[2023-09-13 21:52] LABS: Hematocrit 23.1 % (42.0-52.0); Hemoglobin 7.5 g/dL (14.0-18.0); Mean Corpuscular HGB Conc 32.5 g/dl (32-36); Mean Corpuscular Hemoglobin 33.6 pg (26-34); Mean Corpuscular Volume 103.6 fl (80-100); Mean Platelet Volume 10.3 fl (7.4-10.4); Platelet Count Result 152 k/mm3 (150-375); Red Blood Count 2.23 M/mm3 (4.6-6.20); Red Cell Distribution Width 18.4 % (11.5-14.5); White Blood Count 4.4 K/mm3 (4.5-10.0)
[2023-09-13 22:01] LABS: Alanine Aminotransferase 30 U/L (6-50); Albumin Level 3.3 g/dL (3.5-5.1); Alkaline Phosphatase 154 U/L (38-126); Anion Gap 10 mmol/L (8-16); Aspartate Amino Transferase 63 U/L (17-59); Bilirubin,Total 0.5 mg/dL (0.2-1.3); Blood Urea Nitrogen 16 mg/dL (9-20); Calcium 8.3 mg/dL (8.4-10.2); Carbon Dioxide 25 mmol/L (22-30); Chloride 95 mmol/L (98-107); Estimated CRCL calculation 86 ml/min; Estimated Glomerular Filt Rate > 60; Glucose 150 mg/dL (65-110); Potassium 4.6 mmol/L (3.4-5.0); Sodium 130 mmol/L (137-145)
[2023-09-13 22:02] LABS: INR 1.2; Prothrombin Time 15.6 Seconds (11.1-14.7)
[2023-09-13 22:03] LABS: Partial Thromboplastin Time 39.9 SECONDS (22.3-36.8)
[2023-09-13 22:13] LABS: Band Neutrophils Percent 7 % (0-6); Eosinophils Absolute Manual 0.26 K/mm3 (0.02-0.5); Eosinophils Percent Manual 6 % (0-4); Lymphocytes Absolute Manual 0.88 K/mm3 (1.1-4.5); Lymphocytes Percent Manual 20 % (18-44); Monocytes Absolute Manual 0.35 K/mm3 (0.1-0.90); Monocytes Percent Manual 8 % (3-9); Neutrophils Absolute Manual 2.77 K/mm3 (1.3-6.7); Neutrophils Percent Manual 56 % (46-73); Total Cells Counted 100
[2023-09-13 22:14] LABS: Atypical Lymphocytes Present; Basophils Absolute Manual 0.04 K/mm3 (0.0-0.1); Basophils Percent Manual 1 % (0-1); Metamyelocytes Percent 1 %; Myelocytes Percent 1 %; Platelet Estimate Adequate (Adequate); Schistocytes None Seen (NORMAL)
--- NOTE | 2023-09-13 23:13 | ED.GENADULT ---
HPI - General Adult General Chief complaint: Unspecified Stated complaint: post op bleeding Time Seen by Provider: 09/13/23 21:49 History of Present Illness HPI narrative: This is a 78-year-old male presenting ED with chief complaint of rectal bleeding. Patient has been having significant rectal bleeding for the last several weeks. He underwent a hemorrhoidectomy on September [address] Carmona. Since then he has better until today where he started to have multiple episodes of bright red blood per rectum. Patient notes that he has some fatigue finish achy when he stands up but has no other complaints this time. No use of blood thinners. Related Data Home Medications Medication Instructions Recorded Confirmed vitamin B complex [B 1 tab-cap PO DAILY 04/16/20 09/05/23 Complex-Vitamin B12] bisoprolol fumarate 10 mg tablet 10 mg PO HS 03/24/21 09/05/23 omeprazole 20 mg capsule,delayed 20 mg PO DAILY 05/15/22 09/05/23 release atorvastatin 40 mg tablet See Rx Instructions .Route .COMPLEX 09/05/23 09/05/23 cyclobenzaprine 5 mg tablet 10 mg PO QHS PRN muscle spasm 09/05/23 09/05/23 dutasteride 0.5 mg capsule 0.5 mg PO HS 09/05/23 09/05/23 pyridoxal-5 phosphate 238 mcg PO DAILY 09/05/23 09/05/23 Allergies Allergy/AdvReac Type Severity Reaction Status Date / Time No Known Allergies Allergy Verified 09/13/23 21:12 [facility] Past Medical History Medical History Abnormality of heart beat Aortic valve disease Arthralgia Arthritis of both hands Arthritis of shoulder region, right, degenerative Bilateral shoulder region arthritis BMI 35.0-35.9,adult Changing skin lesion Chest wall tenderness Chills Constipation Decubitus ulcer, buttock Diarrhea Dizzinesses Dyspnea on exertion Essential (primary) hypertension Fever Headache Hesitancy High blood pressure High cholesterol Hoarseness Mixed hyperlipidemia Nausea Other abnormalities of heart beat Right rotator cuff tendinitis Shortness of breath Stomach pain Subscapularis tendinitis of right shoulder Trigger finger of both hands Weight loss Surgical History Surgical History History of back surgery Status post aortic valve replacement with bioprosthetic valve Family History Family History Mother Hypertension Family history of coronary artery disease Father Hypertension Family history of coronary artery disease CHF (congestive heart failure) Sibling Hypertension Family history of coronary artery disease Acute myocardial infarction Cerebrovascular accident Other Family history of seizure disorder Social History Social History Social History: Lives at home with his . Surrogate decision maker: Lyndsey Leal, spouse. Code Status: Full Code. Smoking packs per day: 1 Smoking cigarettes per day: 20.0 Years smoked: 5 Smoking pack-years: 5.00 Smoking status: Current every day smoker Tobacco type: cigarettes Second hand tobacco smoke exposure: No Alcohol intake: current Alcohol use details: occasionally Substance use: never Substance use type: does not use Lack of Transportation: No Lack of Food: Never True Current Housing: I Have Housing Concerned About Future Housing: No Difficulty Paying Gas/Electric Bills: No Difficulty Paying for Meds: No Currently Unemployed: No Education: Bachelor's Degree Difficulty w/ Childcare or Family Care: No Living arrangements: with family Occupation/Education: retired 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 Head: atraumatic.
--- NOTE | 2023-09-13 23:56 | PM.IMHP ---
H&P: HPI History of Present Illness Date/Time: 09/13/23 23:56 Chief Complaint: Patient brought back to the ER for evaluation with complaints of rectal bleeding Narrative: Our patient is 78 years old white male who was discharged from the hospital yesterday. Please see the detailed discharge summary as below: DS: Summary ... 09/12/2023 Hospital Course Hospital Course: Patient is a 78 y/o M admitted with bleeding per rectum with PMH of aortic valve disease, HTN, HLD, headaches, neuropathy, hemorrhoids, and uveitis. Currently awaiting rheumatology workup, likely for RA. Patient reports that he had a colonoscopy performed on 08/24 that revealed bleeding internal hemorrhoids. Since procedure was completed he reported that he has had passage of blood and clots 5-10 times per day. Was referred to general surgery for possible hemorrhoidectomy, has had previous history of bleeding hemorrhoids. In interim, saw his soils analyst where he discussed these symptoms. [place] Worker ordered? lab work. Patient became increasingly weak and hypotensive.? Patient then sought treatment in the ED on 09/04.? Hemoglobin was 6.3, given 1 unit of red blood cells.? Repeat hemoglobin was 7.? Patient was discharged due to recent GI workup and general surgery appointment the following day, 09/05.? while at this appointment with MD Chon he reported increasing weakness and dizziness, continued passage of blood per rectum.? Patient was then sent for direct admission for repeat CBC, BMP, and cardiac workup for surgical clearance in the event it is warranted. Initial admission lab work revealed hemoglobin of 6.7 and hematocrit of 20.6, otherwise unremarkable. He received PBRC transfusion, H&H has stabilized.? VSS. Hemorrhoidectomy done yesterday by surgery, cleared for d/c home today. He reports soreness, but denies active bleeding from his rectum this morning. PT d/c him today, stable to return home with his and follow up outpatient. Status at Discharge Functional status at discharge: independent ambulation Overall status at discharge: patient is progressing back to baseline Patient was brought back to the ER for evaluation by family as he was having multiple episodes of bright red blood per rectum. He also was feeling weak tired and fatigued. Workup was done in the ER which showed hemoglobin of 7.5 and blood pressure of 98/40. ER physician typed and cross-matched 3 units of packed RBCs, the 1st one is currently transfusing. General Surgery was consulted who advised to place patient under observation and keep him NPO after midmight for possible surgical intervention in a.m. Review of Systems Review of Systems: he denies any chest pain, fever rigor chills, nausea vomiting, or loss of consciousness. he feels weak, tired and has some muscle spasms All systems reviewed & are unremarkable except as noted in HPI and below PMFSH Past Medical History Medical History Abnormality of heart beat Aortic valve disease Arthralgia Arthritis of both hands Arthritis of shoulder region, right, degenerative Bilateral shoulder region arthritis BMI 35.0-35.9,adult Changing skin lesion Chest wall tenderness Chills Constipation Decubitus ulcer, buttock Diarrhea Dizzinesses Dyspnea on exertion Essential (primary) hypertension Fever Headache Hesitancy High blood pressure High cholesterol Hoarseness Mixed hyperlipidemia Nausea Other abnormalities of heart beat Right rotator cuff tendinitis Shortness of breath Stomach pain Subscapularis tendinitis of right shoulder Trigger finger of both hands Weight loss Surgical History Surgical History History of back surgery Status post aortic valve replacement with bioprosthetic valve Family History Family History Mother Hypertension Family history of coronary artery disease
[2023-09-14] VITALS (41 sets, daily range): BP systolic 91–138; BP diastolic 38–69; PULSE 69–117; RESP 11–99; TEMP 36.1–37.1; O2SAT 93–100; BMI 36.0
[2023-09-14] MEDS: SODIUM CHLORIDE 0.9% IV 1,000 ML 999 ML IV CONT (00:15)
[2023-09-14 01:03] LABS: Hematocrit 19.3 % (42.0-52.0); Hemoglobin 6.3 g/dL (14.0-18.0)
--- NOTE | 2023-09-14 01:38 | ADMGEN ---
This patient, Morris Leal, was admitted to IMU Room 204-01. Patient/family oriented to hospital policies and general routines including ID bracelet, bed and alarms, visiting hours, pain management, procedures, bathroom and other care routines, personal items, smoking policy, room service/diet, and visiting hours. Information on how to activate the Rapid Response Team has been discussed. Patient/Family are encouraged to report perceived risks to care and to ask questions if they do not understand what they are told or what they should do.
[2023-09-14] MEDS: ACETAMINOPHEN 325 MG TABLET 650 MG PO (01:48)
[2023-09-14 09:09] LABS: Anion Gap 6 mmol/L (8-16); Blood Urea Nitrogen 15 mg/dL (9-20); Calcium 7.2 mg/dL (8.4-10.2); Carbon Dioxide 23 mmol/L (22-30); Chloride 99 mmol/L (98-107); Estimated CRCL calculation 133 ml/min; Estimated Glomerular Filt Rate > 60; Glucose 124 mg/dL (65-110); Magnesium 1.8 mg/dL (1.6-2.3); Phosphorus 3.2 mg/dL (2.5-4.5); Potassium 4.9 mmol/L (3.4-5.0); Sodium 128 mmol/L (137-145)
[2023-09-14 09:48] LABS: Hematocrit 24.2 % (42.0-52.0); Hemoglobin 7.9 g/dL (14.0-18.0); Immature Platelet Fraction Pct 5.7 % (0.9-11.2); Mean Corpuscular HGB Conc 32.6 g/dl (32-36); Mean Corpuscular Hemoglobin 31.6 pg (26-34); Mean Corpuscular Volume 96.8 fl (80-100); Mean Platelet Volume 10.5 fl (7.4-10.4); Platelet Count Result 163 k/mm3 (150-375); Red Cell Distribution Width 18.4 % (11.5-14.5); White Blood Count 4.8 K/mm3 (4.5-10.0)
[2023-09-14] MEDS: TAMSULOSIN HCL 0.4 MG CAPSULE PO (10:40)
[2023-09-14 10:41] LABS: Anisocytosis 1+ (NORMAL); Atypical Lymphocytes Present; Band Neutrophils Percent 12 % (0-6); Basophils Absolute Manual 0.24 K/mm3 (0.0-0.1); Basophils Percent Manual 5 % (0-1); Eosinophils Absolute Manual 0.28 K/mm3 (0.02-0.5); Eosinophils Percent Manual 6 % (0-4); Hypochromasia 2+ (NORMAL); Lymphocytes Absolute Manual 0.96 K/mm3 (1.1-4.5); Metamyelocytes Percent 2 %; Monocytes Absolute Manual 0.24 K/mm3 (0.1-0.90); Monocytes Percent Manual 5 % (3-9); Neutrophils Absolute Manual 2.97 K/mm3 (1.3-6.7); Neutrophils Percent Manual 50 % (46-73); Platelet Estimate Adequate (Adequate); Schistocytes None Seen (NORMAL); Total Cells Counted 100
--- NOTE | 2023-09-14 10:49 | PM.CNGS ---
Assessment and Plan Assessment and plan (1) Rectal bleeding: Code(s): K62.5 - Hemorrhage of anus and rectum Status: Acute Assessment and Plan: Persistent and severe recurrent rectal bleeding after hemorrhoidectomy 4 days ago. This is most likely either due to a suture line bleeding or an additional hemorrhoid that is bleeding. I have recommended that we take the patient back to surgery this morning for rectal exam under anesthesia and control of persistent rectal bleeding. I discussed this with the patient and his . They voiced some concerns about the patient needing to be transferred rather than having additional treatment here. I advised against this as that would take quite a bit of time and the patient is currently bleeding. If reoperation does not stop the bleeding, transfer may then be the best option. We do not have gastroenterology available this weekend. With the abnormal CTA suggesting nodular liver and possible cirrhosis, it is possible that the extensive hemorrhoids are due to portal hypertension although no evidence of this was seen on the CTA. (2) Acute blood loss anemia: Code(s): D62 - Acute posthemorrhagic anemia Status: Acute Assessment and Plan: Transfused 4 units packed cells as to his initial admission. Has received 3 more units of packed cells through the night and does have an improved H&H but is still quite anemic. He is hemodynamically stable. Need to proceed expeditiously to surgery. (3) Status post aortic valve replacement with bioprosthetic valve: Code(s): Z95.3 - Presence of xenogenic heart valve Status: Chronic Assessment and Plan: Has had a aortic valve replacement. Had cardiac evaluation before his surgery 09/10/2023 and was felt to be medically optimized for the procedure. (4) History of hemorrhoidectomy: Code(s): Z98.890 - Other specified postprocedural states Status: Acute Assessment and Plan: Extensive excision of internal hemorrhoids as well as external hemorrhoids done at on 09/10/2023. Patient had many hemorrhoids per the operative report. (5) Abnormal CT scan, gastrointestinal tract: Code(s): R93.3 - Abnormal findings on diagnostic imaging of other parts of digestive tract Status: Acute Assessment and Plan: CT scan done 09/06/2023 showed a nodular liver and possible cirrhosis. It also suggested a 4 cm masslike lesion in the liver and recommended an MRI scan of the liver when it can be done. I did go ahead and order an alpha-fetoprotein level to start an evaluation for hepatocellular carcinoma. He will still need the MRI even with a normal AFP as HCC can often be present without elevation of the AFP. History of Present Illness Consult details Consult date: 09/14/23 Reason for consult: other (Rectal bleeding) Requesting physician: Maxwell Buckner MD Narrative: The patient is a 78-year-old man who has had hemorrhoids for many years. They would intermittently bleed but nothing very severe. He underwent colonoscopy on 08/24/2023. Following that procedure, he has had pretty regular and sometimes large amounts of rectal bleeding. The colonoscopy did not show a more proximal site of bleeding but did show stigmata and evidence of bleeding from the internal hemorrhoids. Patient was admitted to the hospital on 09/05/2023. He was continuing to have bleeding and was anemic. He had preop cardiac evaluation and clearance for surgery. During this admission he received a total of 4 units packed cells for anemia due to bleeding. He also had a CTA of the abdomen and pelvis. This did not show an intra-abdominal tumor but did show a very nodular liver suggestive of cirrhosis. There was also a 4 cm masslike abnormality and MRI scan was recommended. Patient does have history of severe hepatitis decades ago after a trip to [place]. He got sick on his way home and was hospitalized for quite some time. The CTA did not show e
--- NOTE | 2023-09-14 11:08 | WPDHPUPDATE1 ---
History and Physical Update Update Date/Time: 09/14/23 11:08 History and Physical has been reviewed, including an updated exam of the patient. There are NO changes in the patient's condition. Risks, benefits, and alternatives have been discussed and questions answered. Patient agrees to proceed with procedure.
--- NOTE | 2023-09-14 12:04 | WPDANESEPPF ---
Anes - Initial Pre Proc Eval Procedure: Operation Date: 09/14/23 11:45 Proposed Procedures p Hemorrhoidectomy, Anal Rectal Procedure Rectal EUA - Rubén Singer MD Date/Time: 09/14/23 12:04 Surgeon: Lorenzo Baptiste MD Pre Op Diagnosis: Rectal Bleed Patient Data Age: 78 Gender: M Height: 1.78 m Weight: 114 kg Last Vital Signs Temp 36.1 C L 09/14/23 11:39 Pulse 86 09/14/23 11:39 Resp 22 H 09/14/23 11:39 BP 96/43 L 09/14/23 11:39 Pulse Ox 97 09/14/23 11:39 O2 Del Method Room Air 09/14/23 03:55 Allergies Allergy/AdvReac Type Severity Reaction Status Date / Time No Known Allergies Allergy Verified 09/13/23 21:12 Home Medications Medication Instructions Recorded Confirmed Type vitamin B complex [B 1 tab-cap PO DAILY 04/16/20 09/14/23 History Complex-Vitamin B12] bisoprolol fumarate 10 mg tablet 10 mg PO HS 03/24/21 09/14/23 History omeprazole 20 mg capsule,delayed 20 mg PO DAILY 05/15/22 09/14/23 History release tamsulosin 0.4 mg capsule (Flomax) 0.4 mg PO DAILY #90 caps 10/02/22 09/14/23 Rx potassium chloride 20 mEq 20 meq PO DAILY #90 tabs 06/01/23 09/14/23 Rx tablet,extended release pregabalin 75 mg capsule 75 mg PO BID #60 caps 06/01/23 09/14/23 Rx atorvastatin 40 mg tablet 40 mg PO DAILY 09/05/23 09/14/23 History cyclobenzaprine 5 mg tablet 10 mg PO QHS PRN muscle spasm 09/05/23 09/14/23 History dutasteride 0.5 mg capsule 0.5 mg PO HS 09/05/23 09/14/23 History pyridoxal-5 phosphate 238 mcg PO DAILY 09/05/23 09/14/23 History hydrocodone 5 mg-acetaminophen 325 1 tablet PO Q4-6H PRN Pain Rated 09/12/23 09/14/23 Rx mg tablet 4-6 #14 tabs lidocaine HCl 2 % mucosal solution 1 applic mucous membrane QID PRN 09/12/23 09/14/23 Rx pain #100 mL mineral oil 15 ml PO BID 14 days #473 mL 09/12/23 09/14/23 Rx psyllium husk (with sugar) 3.4 1 ea PO BID 14 days #28 ea 09/12/23 09/14/23 Rx gram oral powder packet zolpidem 5 mg tablet (Ambien) 5 mg PO HS PRN sleep #20 tabs 09/12/23 09/14/23 Rx acetaminophen 500 mg tablet 1,000 mg PO Q6H PRN Pain (Scale 09/14/23 09/14/23 History Score 1-3) Laboratory Tests 09/13/23 09/14/23 09/14/23 21:45 00:52 08:37 WBC 4.4 L K/mm3 (4.5-10.0) RBC 2.23 L M/mm3 (4.6-6.20) Hgb 7.5 L g/dL 6.3 L* g/dL Cancelled (14.0-18.0) (14.0-18.0) Hct 23.1 L % 19.3 L* % Cancelled (42.0-52.0) (42.0-52.0) MCV 103.6 H fl (80-100) MCH 33.6 pg (26-34) MCHC 32.5 g/dl (32-36) RDW 18.4 H % (11.5-14.5) Plt Count 152 k/mm3 (150-375) MPV 10.3 fl (7.4-10.4) Immature Gran % (Auto) Not Reportable Neut % (Auto) Not Reportable Lymph % (Auto) Not Reportable [place] % (Auto) Not Reportable Eos % (Auto) Not Reportable Baso % (Auto) Not Reportable Lymph # (Auto) Not Reportable [place] # (Auto) Not Reportable Eos # (Auto) Not Reportable Baso # (Auto) Not Reportable Abs Immat Gran (auto) Not Reportable Absolute Neuts (auto) Not Reportable Absolute Nucleated RBC Not Reportable Total Counted 100 Neutrophils % (Manual) 56 % (46-73) Band Neutrophils % 7 H % (0-6) Lymphocytes % (Manual) 20 % (18-44) Monocytes % (Manual) 8 % (3-9) Eosinophils % (Manual) 6 H % (0-4) Basophils % (Manual) 1 % (0-1) Metamyelocytes % 1 % Myelocytes % 1 % Nucleated RBC % Not Reportable Abs Neuts (Manual) 2.77 K/mm3 (1.3-6.7) Abs Lymphs (Manual) 0.88 L K/mm3 (1.1-4.5) Abs Monocytes (Manual) 0.35 K/mm3 (0.1-0.90) Absolute Eos (Manual) 0.26 K/mm3 (0.02-0.5) Abs Basophils (Manual) 0.04 K/mm3 (0.0-0.1) Atypical Lymphocytes Present Platelet Estimate Adequ
[2023-09-14 12:14] LABS: Folic Acid 10.6 ng/mL (2.76->20)
[2023-09-14] MEDS: ceFAZolin 2 GM/D5W 50 ML 2 GM/50 ML BAG IVPB (12:27)
[2023-09-14] MEDS: LACTATED RINGERS 1,000 ML 30 ML IV CONT (13:12)
[2023-09-14] MEDS: fentaNYL CITRATE INJ (*CRX) 100 MCG/2 ML VIAL 25 MCG IV PUSH ×4 (13:21→13:51)
--- NOTE | 2023-09-14 13:30 | W.PM.PROC2 ---
Procedure Note - Detailed Date of Procedure 09/14/23 Pre-op Diagnosis Rectal Bleeding Post-op Diagnosis Same Procedure Performed Rectal exam under anesthesia, control distal rectal bleeding Surgeon Rubén Singer MD Economics Teacher Eve SANTAMARIA Anesthesia General Indications Patient is a 78-year-old man who has had lower GI bleeding since early August. He was admitted about 9 days ago for this. After cardiac evaluation, patient was taken for hemorrhoidectomy on 09/10/2023. The rectal bleeding did not recur after surgery and the patient was discharged 09/12/2023. He came back to the emergency room last night with more bleeding. He had 4 units of blood transfused on his 1st admission. He had an additional 3 units of packed cells transfused since being in the emergency room. He is still anemic with evidence of active bleeding. He is taken to surgery now for rectal exam under anesthesia and control of rectal bleeding. Findings Rectal mucosa had at the left lateral and right anterior complexes where internal hemorrhoids had been removed. There was some slight oozing at these areas but most of the bleeding actually seemed to be coming more proximal in the rectum. There were areas on the rectal mucosa here which were oozing blood in several areas. There was also a large amount of clot farther up the rectum and sigmoid colon which I pretty much evacuated during the procedure. No residual internal or external hemorrhoids were noted. Description of Procedure Patient was taken to surgery and induced into general anesthesia. He was then placed in prone natalia-knife position. The buttocks were taped apart. Prep and drape was carried out. There was some dark blood initially on the open left lateral and right anterior positions where internal hemorrhoids had been removed before. This was removed and a couple of areas were cauterized in these open wounds. I then began suctioning large amounts of clot out of the rectum. I irrigated the rectum and was able to advance the suction nearly all the way in the rectum. I removed many areas of old clot. We persisted with this and eventually no additional or new clot was coming. The irrigation was continued intermittently. I then used a medium and a large Hill-Russo anoscope and looked for sites of bleeding. There were mucosal erythematous areas proximal to the areas of the hemorrhoidectomy that were oozing blood. One of these I sutured with 3-0 chromic suture. The other areas I cauterized and made hemostatic. I checked and recheck the areas and no bleeding was noted. Because there was a large amount of raw surface area exposed, I then placed 10 cc of Surgiflo all over it the areas that I had cauterized as well as the internal hemorrhoidectomy sites. We then watched for any signs of bleeding. There were none. Rectum was dressed with 5 x 9 in Xeroform gauze, fluffs andPromise panties. Patient was returned to a supine position, awakened and extubated. He was transferred to recovery in good condition. Sponge needle counts were correct x2. Estimated Blood Loss -50.0 Drains No Packing No Pathology None sent Complications No immediate complications Condition Stable Disposition PACU [facility] Billing Surgery - Charge Forward: Surgery Billing (Rectal exam under anesthesia, control of bleeding rectal mucosa.)
[2023-09-14] MEDS: SODIUM CHLORIDE 0.9% IV 1,000 ML 100 ML IV CONT (16:40)
[2023-09-14] MEDS: MINERAL OIL 30 ML UDC 15 ML PO (16:41)
[2023-09-14] MEDS: PREGABALIN (*CRX) 75 MG CAPSULE PO (16:41)
[2023-09-14] MEDS: PSYLLIUM POWDER PACKET 1 PACKET PO (16:42)
--- NOTE | 2023-09-14 17:29 | PM.IMPN ---
Progress Note: A&P Assessment and Plan (1) Acute blood loss anemia: Code(s): D62 - Acute posthemorrhagic anemia Status: Acute (2) Internal and external bleeding hemorrhoids: Code(s): K64.4 - Residual hemorrhoidal skin tags; K64.8 - Other hemorrhoids Status: Acute (3) CAD (coronary artery disease): Code(s): I25.10 - Atherosclerotic heart disease of [place] coronary artery without angina pectoris Status: Chronic (4) Aortic valve disease: Code(s): I35.9 - Nonrheumatic aortic valve disorder, unspecified Status: Chronic (5) Lower GI bleed: Code(s): K92.2 - Gastrointestinal hemorrhage, unspecified Status: Acute (6) Neuropathy: Code(s): G62.9 - Polyneuropathy, unspecified Status: Acute (7) Hyperlipidemia: Qualifiers: Hyperlipidemia type: mixed hyperlipidemia Qualified Code(s): E78.2 - Mixed hyperlipidemia Code(s): E78.5 - Hyperlipidemia, unspecified Status: Acute (8) Arthralgia: Qualifiers: Joint pain location: shoulder Laterality: right Qualified Code(s): M25.511 - Pain in right shoulder Code(s): M25.50 - Pain in unspecified joint Status: Acute (9) Status post aortic valve replacement with bioprosthetic valve: Code(s): Z95.3 - Presence of xenogenic heart valve Status: Chronic (10) BPH (benign prostatic hyperplasia): Qualifiers: Lower urinary tract symptom presence: symptoms present Lower urinary tract symptom detail: weak urinary stream Qualified Code(s): N40.1 - Benign prostatic hyperplasia with lower urinary tract symptoms; R39.12 - Poor urinary stream Code(s): N40.0 - Benign prostatic hyperplasia without lower urinary tract symptoms Status: Acute (11) Bilateral shoulder region arthritis: Code(s): M19.011 - Primary osteoarthritis, right shoulder; M19.012 - Primary osteoarthritis, left shoulder Status: Acute (12) Arthritis of both hands: Code(s): M19.041 - Primary osteoarthritis, right hand; M19.042 - Primary osteoarthritis, left hand Status: Acute Plan Posthemorrhoidectomy rectal bleed Continue close monitoring hb 7.9 s/p 3 units packed RBCs b12 and folate, iron profile within normal limits f/u post surgery DVT prophylaxis on SCDs, no AC due to rectal bleed Subjective Date/time seen: 09/14/23 17:29 Interval history: patient having hematochezia with clots taken to OR for surgical exploration Review of Systems Review of Systems: he denies any chest pain, fever rigor chills, nausea vomiting, or loss of consciousness. he feels weak, tired and has some muscle spasms All systems reviewed & are unremarkable except as noted in HPI and below Exam Narrative: PHYSICAL EXAMINATION: Vital signs: Please see the chart General physical exam: patient feels weak tired fatigued, lying in bed in the ER, 1st unit of blood is transfusing Head/eyes: Atraumatic, EOMI, PERRLA ENT: Moist mucous membranes, nasal passages clear Neck: Supple, full range of motion, trachea midline CVS: S1 + S2, regular rate and rhythm, no murmurs Respiratory: Bilaterally fair air entry in both lung byr[place], mild B/L crackles, symmetric chest expansion, no distress Abdomen: Soft, non-tender, bowel sounds +ve, no organomegaly Extremities: No clubbing, no cyanosis, no edema, no calf tenderness Musculoskeletal: Moves all, decreased range of motion, no muscle spasms Skin: Warm, dry, no jaundice, no cyanosis Neurological: Awake, alert, oriented x 3, cranial nerves II-XII intact, no focal neurological deficits Psychiatric: Normal mood, non suicidal Objective Data Vital Signs Vital Signs: Vital Signs - 24 hr 09/13/23 20:49 09/13/23 21:10 09/13/23 21:11 Temperature 98.1 F Pulse Rate 86 93 93 Respiratory Rate 20 24 H Blood Pressure 110/52 L 95/53 L Pulse Oximetry 95 95 Oxygen Delivery Room Air Oxygen Flow Rate 09/13/23
[2023-09-14 19:32] LABS: Hematocrit 19.8 % (42.0-52.0); Hemoglobin 6.7 g/dL (14.0-18.0)
[2023-09-14] MEDS: ACETAMINOPHEN 500 MG TABLET PO (21:34)
[2023-09-14] MEDS: SODIUM CHLORIDE 0.9% IV 250 ML 30 ML IV CONT (21:35)
[2023-09-14] MEDS: DUTASTERIDE 0.5 MG CAPSULE PO (21:35)
[2023-09-15] VITALS (20 sets, daily range): BP systolic 90–144; BP diastolic 44–66; PULSE 75–114; RESP 16–20; TEMP 36.1–36.5; O2SAT 97–99
[2023-09-15 05:30] LABS: Basophils Absolute Auto 0.1 K/mm3 (0.0-0.1); Basophils Percent Auto 2.1 % (0.2-1.2); Eosinophils Percent Auto 0.9 % (0-4.4); Hematocrit 22.3 % (42.0-52.0); Hemoglobin 7.4 g/dL (14.0-18.0); Immature Granulocyte Absolute 0.29 K/mm3 (0.00-0.031); Immature Granulocyte Percent A 6.6 % (0-0.5); Lymphocytes Absolute Auto 1.08 K/mm3 (0.9-3.2); Lymphocytes Percent Auto 24.6 % (18.3-44.2); Mean Corpuscular HGB Conc 33.2 g/dl (32-36); Mean Corpuscular Hemoglobin 31.1 pg (26-34); Mean Corpuscular Volume 93.7 fl (80-100); Mean Platelet Volume 10.7 fl (7.4-10.4); Monocytes Absolute Auto 0.4 K/mm3 (0.1-0.6); Monocytes Percent Auto 9.6 % (2.6-8.5); Neutrophils Absolute Auto 2.5 K/mm3 (1.3-6.7); Neutrophils Percent Auto 56.2 % (45.5-73.1); Platelet Count Result 143 k/mm3 (150-375); Red Blood Count 2.38 M/mm3 (4.6-6.20); Red Cell Distribution Width 18.7 % (11.5-14.5); White Blood Count 4.4 K/mm3 (4.5-10.0)
[2023-09-15 05:40] LABS: Alanine Aminotransferase 24 U/L (6-50); Albumin Level 2.6 g/dL (3.5-5.1); Alkaline Phosphatase 116 U/L (38-126); Anion Gap 9 mmol/L (8-16); Aspartate Amino Transferase 34 U/L (17-59); Bilirubin,Total 0.8 mg/dL (0.2-1.3); Blood Urea Nitrogen 16 mg/dL (9-20); Calcium 7.8 mg/dL (8.4-10.2); Carbon Dioxide 23 mmol/L (22-30); Chloride 98 mmol/L (98-107); Estimated CRCL calculation 131 ml/min; Estimated Glomerular Filt Rate > 60; Glucose 139 mg/dL (65-110); Potassium 4.5 mmol/L (3.4-5.0); Sodium 130 mmol/L (137-145)
[2023-09-15] MEDS: SODIUM CHLORIDE 0.9% IV 1,000 ML 100 ML IV CONT (06:20)
[2023-09-15] MEDS: POTASSIUM CHLORIDE 20 MEQ ER TABLET PO (09:07)
[2023-09-15] MEDS: PSYLLIUM POWDER PACKET 1 PACKET PO ×2 (09:07→16:14)
[2023-09-15] MEDS: MINERAL OIL 30 ML UDC 15 ML PO ×2 (09:07→16:13)
[2023-09-15] MEDS: PANTOPRAZOLE 40 MG TABLET PO (09:07)
[2023-09-15] MEDS: TAMSULOSIN HCL 0.4 MG CAPSULE PO (09:07)
[2023-09-15] MEDS: ATORVASTATIN 40 MG TABLET PO (09:07)
[2023-09-15] MEDS: PREGABALIN (*CRX) 75 MG CAPSULE PO ×2 (09:07→16:14)
--- NOTE | 2023-09-15 11:12 | PM.IMPN ---
Progress Note: A&P Assessment and Plan (1) Acute blood loss anemia: Code(s): D62 - Acute posthemorrhagic anemia Status: Acute (2) Internal and external bleeding hemorrhoids: Code(s): K64.4 - Residual hemorrhoidal skin tags; K64.8 - Other hemorrhoids Status: Acute (3) CAD (coronary artery disease): Code(s): I25.10 - Atherosclerotic heart disease of [place] coronary artery without angina pectoris Status: Chronic (4) Aortic valve disease: Code(s): I35.9 - Nonrheumatic aortic valve disorder, unspecified Status: Chronic (5) Lower GI bleed: Code(s): K92.2 - Gastrointestinal hemorrhage, unspecified Status: Acute (6) Neuropathy: Code(s): G62.9 - Polyneuropathy, unspecified Status: Acute (7) Hyperlipidemia: Qualifiers: Hyperlipidemia type: mixed hyperlipidemia Qualified Code(s): E78.2 - Mixed hyperlipidemia Code(s): E78.5 - Hyperlipidemia, unspecified Status: Acute (8) Arthralgia: Qualifiers: Joint pain location: shoulder Laterality: right Qualified Code(s): M25.511 - Pain in right shoulder Code(s): M25.50 - Pain in unspecified joint Status: Acute (9) Status post aortic valve replacement with bioprosthetic valve: Code(s): Z95.3 - Presence of xenogenic heart valve Status: Chronic (10) BPH (benign prostatic hyperplasia): Qualifiers: Lower urinary tract symptom detail: weak urinary stream Lower urinary tract symptom presence: symptoms present Qualified Code(s): N40.1 - Benign prostatic hyperplasia with lower urinary tract symptoms; R39.12 - Poor urinary stream Code(s): N40.0 - Benign prostatic hyperplasia without lower urinary tract symptoms Status: Acute (11) Bilateral shoulder region arthritis: Code(s): M19.011 - Primary osteoarthritis, right shoulder; M19.012 - Primary osteoarthritis, left shoulder Status: Acute (12) Arthritis of both hands: Code(s): M19.041 - Primary osteoarthritis, right hand; M19.042 - Primary osteoarthritis, left hand Status: Acute Plan Posthemorrhoidectomy rectal bleed per GS, rectal mucosa had at the left lateral and right anterior complexes where internal hemorrhoids had been removed.? There was some slight oozing at these areas but most of the bleeding actually seemed to be coming more proximal in the rectum.? There were areas on the rectal mucosa here which were oozing blood in several areas.? There was also a large amount of clot farther up the rectum and sigmoid colon.? No residual internal or external hemorrhoids were noted. Continue close monitoring hb 7.9 s/p 3 units packed RBCs b12 and folate, iron profile within normal limits f/u post surgery Hb 74 today No obvious bleeding, continue watch hemoglobin today DVT prophylaxis on SCDs, no AC due to rectal bleed Subjective Date/time seen: 09/15/23 11:12 Interval history: Patient tolerated diet well, denies abdomen pain, nausea vomiting, hemoglobin stable, Exam Narrative: PHYSICAL EXAMINATION: Vital signs: Please see the chart General physical exam: patient feels weak tired fatigued, lying in bed in the ER, 1st unit of blood is transfusing Head/eyes: Atraumatic, EOMI, PERRLA ENT: Moist mucous membranes, nasal passages clear Neck: Supple, full range of motion, trachea midline CVS: S1 + S2, regular rate and rhythm, no murmurs Respiratory: Bilaterally fair air entry in both lung [place], mild B/L crackles, symmetric chest expansion, no distress Abdomen: Soft, non-tender, bowel sounds +ve, no organomegaly Extremities: No clubbing, no cyanosis, no edema, no calf tenderness Musculoskeletal: Moves all, decreased range of motion, no muscle spasms Skin: Warm, dry, no jaundice, no cyanosis Neurological: Awake, alert, oriented x 3, cranial nerves II-XII intact, no focal neurological deficits Psychiatric: Normal mood, non suicidal Objective
[2023-09-15] MEDS: HYDROcodone/acetaminophen (*CRX) 5-325 MG TABLET 1 TAB PO ×2 (11:34→20:48)
--- NOTE | 2023-09-15 11:56 | WPDANESPN ---
Anes - Prog Note Post-Op Date/Time: 09/15/23 11:56 Cardiovascular status: other (anemia, VSS) Respiratory status: normal Airway patency: baseline Mental status: baseline Post-Op hydration status: normal Vital Signs: Last Vital Signs Temp 36.2 C L 09/15/23 11:29 Pulse 98 09/15/23 11:29 Resp 20 09/15/23 11:29 BP 144/66 H 09/15/23 11:29 Pulse Ox 98 09/15/23 11:29 O2 Del Method Room Air 09/15/23 08:00 O2 Flow Rate 8 09/14/23 13:25 Pain Score (VAS): 10/31 I/O: Intake & Output 09/14/23 09/15/23 09/15/23 23:59 07:59 15:59 Intake Total 360 1700 240 Output Total 1000 Balance 360 700 240 Laboratory Tests 09/15/23 04:38 09/15/23 04:38 09/13/23 09/14/23 09/14/23 21:45 08:37 19:17 WBC RBC Hgb 6.7 L* Hct 19.8 L* MCV MCH MCHC RDW Plt Count MPV Immature Gran % (Auto) Neut % (Auto) Lymph % (Auto) [place] % (Auto) Eos % (Auto) Baso % (Auto) Lymph # (Auto) [place] # (Auto) Eos # (Auto) Baso # (Auto) Abs Immat Gran (auto) Absolute Neuts (auto) Absolute Nucleated RBC Nucleated RBC % Sodium Potassium Chloride Carbon Dioxide Anion Gap BUN Creatinine Estim Creat Clear Calc Estimated GFR Glucose Calcium Total Bilirubin AST ALT Alkaline Phosphatase Total Protein Albumin Vitamin B12 798.0 Folate 10.6 Blood Type A Positive Antibody Screen Negative Crossmatch See Detail 09/15/23 04:38 WBC 4.4 L RBC 2.38 L Hgb 7.4 L Hct 22.3 L MCV 93.7 MCH 31.1 MCHC 33.2 RDW 18.7 H Plt Count 143 L MPV 10.7 H Immature Gran % (Auto) 6.6 H Neut % (Auto) 56.2 Lymph % (Auto) 24.6 [place] % (Auto) 9.6 H Eos % (Auto) 0.9 Baso % (Auto) 2.1 H Lymph # (Auto) 1.08 [place] # (Auto) 0.4 Eos # (Auto) 0.0 Baso # (Auto) 0.1 Abs Immat Gran (auto) 0.29 H Absolute Neuts (auto) 2.5 Absolute Nucleated RBC 0.0 Nucleated RBC % 0.0 Sodium 130 L Potassium 4.5 Chloride 98 Carbon Dioxide 23 Anion Gap 9 BUN 16 Creatinine 0.50 L Estim Creat Clear Calc 131 Estimated GFR > 60 Glucose 139 H Calcium 7.8 L Total Bilirubin 0.8 AST 34 ALT 24 Alkaline Phosphatase 116 Total Protein 6.0 L Albumin 2.6 L Vitamin B12 Folate Blood Type Antibody Screen Crossmatch Post-procedural complaints: none Patient Feedback: Patient satisfied with anesthetic care.
--- NOTE | 2023-09-15 11:57 | PM.PNGS ---
Progress Note: A&P Assessment and Plan (1) Rectal bleeding: Code(s): K62.5 - Hemorrhage of anus and rectum Status: Acute Assessment and Plan: No evidence of persistent rectal bleeding this morning. Continue to follow serial H&H. Repeat labs again tomorrow morning. (2) Acute blood loss anemia: Code(s): D62 - Acute posthemorrhagic anemia Status: Acute Assessment and Plan: Has had 4 units packed cells this admission. H&H still low but higher than yesterday. Will continue to watch closely. Subjective Subjective Date/Time Seen: 09/15/23 11:57 Patient reports: no new complaints, pain is less (Rectum feels as though he has a bulky dressing over it.), bowel movement (Initial bowel movement was mostly clot. Small amount of BM last night again clot. This morning had liquid but brown BM.) and afebrile Interval history: Received another unit of packed red blood cells last night. H&H better but still very anemic Exam Const: General: cooperative (In good spirits this morning), comfortable, no acute distress, alert, awake and overweight Orientation/consciousness: patient oriented x3 GI: Inspection: obesity GI Palp: Yes Soft to palpation and No Tenderness to palpation present (GI) Rectal Exam: other (Dressing dry and intact) Objective Data Vital Signs Vital Signs: Vital Signs - 24 hr 09/14/23 13:12 09/14/23 13:25 09/14/23 13:40 Temperature 36.6 C Pulse Rate 99 89 83 Respiratory Rate 99 H 16 11 L Blood Pressure 113/56 L 126/65 118/63 Pulse Oximetry 100 100 93 Oxygen Delivery Simple Face Mask Simple Face Mask Room Air Oxygen Flow Rate 8 8 09/14/23 13:55 09/14/23 14:10 09/14/23 14:17 Temperature Pulse Rate 84 86 84 Respiratory Rate 12 15 20 Blood Pressure 110/60 124/61 114/49 L Pulse Oximetry 93 94 98 Oxygen Delivery Room Air Room Air Oxygen Flow Rate 09/14/23 14:32 09/14/23 12:00 09/14/23 14:00 Temperature 36.3 C L Pulse Rate 82 86 82 Respiratory Rate 18 Blood Pressure 100/58 L Pulse Oximetry 97 Oxygen Delivery Oxygen Flow Rate 09/14/23 16:00 09/14/23 15:02 09/14/23 17:00 Temperature 36.1 C L 36.4 C L Pulse Rate 69 Respiratory Rate 20 20 Blood Pressure 120/62 122/57 L Pulse Oximetry 98 97 Oxygen Delivery Room Air Oxygen Flow Rate 09/14/23 16:00 09/14/23 18:00 09/14/23 20:00 Temperature 36.5 C Pulse Rate 101 H 78 117 H Respiratory Rate 20 Blood Pressure 114/43 L Pulse Oximetry 96 Oxygen Delivery Oxygen Flow Rate 09/14/23 22:13 09/14/23 20:00 09/14/23 20:00 Temperature 36.5 C Pulse Rate 78 79 79 Respiratory Rate 18 20 Blood Pressure 118/50 L Pulse Oximetry 97 96 Oxygen Delivery Room Air Oxygen Flow Rate 09/14/23 22:00 09/14/23 22:31 09/14/23 23:45 Temperature 36.6 C 36.4 C Pulse Rate 84 84 78 Respiratory Rate 18 20 Blood Pressure 121/54 L 135/46 L Pulse Oximetry 98 97 Oxygen Delivery Oxygen Flow Rate 09/14/23 23:31 09/15/23 00:00 09/15/23 00:00 Temperature 36.4 C Pulse Rate 78 75 75 Respiratory Rate 20 20 Blood Pressure 135/46 L Pulse Oximetry 97 97 Oxygen Delivery Room Air Oxygen Flow Rate 09/15/23 01:30 09/15/23 04:00 09/15/23 02:00 Temperature 36.1 C L 36.2 C L Pulse Rate 78 76 78 Respiratory Rate 18 18 Blood Pressure 115/55 L 116/47 L Pulse Oximetry 97 98 Oxygen Delivery Oxygen Flow Rate 09/15/23 04:00 09/15/23 04:00 09/15/23 05:43 Temperature Pulse Rate 78 78 80 Respiratory Rate 18 Blood Pressure Pulse Oximetry 98 Oxygen Delivery Room Air Oxygen Flow Rate 09/15/23 07:50 09/15/23 08:00 09/15/23 11:29 Temperature 36.5 C 36.2 C L Pulse Rate 82 98 Respiratory Rate 20 20 Blood Pressure 123/56 L 144/66 H Pulse Oximetry 99 98 Oxygen Delivery Room Air Oxygen Flow Rate Intake/Output Intake/Output: Intake & Output 09/12/23 09/13/23 09/14/23 09/15/23 23:59 23:59 23:59 23:59 In
[2023-09-15] MEDS: SODIUM CHLORIDE 0.9% IV 1,000 ML 60 ML IV CONT (16:14)
[2023-09-15] MEDS: bisoproloL fumarate 5 MG TABLET 10 MG PO (20:45)
[2023-09-15] MEDS: DUTASTERIDE 0.5 MG CAPSULE PO (20:46)
[2023-09-15 22:13] LABS: Mean Corpuscular HGB Conc 33.3 g/dl (32-36); Mean Corpuscular Hemoglobin 31.5 pg (26-34); Mean Corpuscular Volume 94.5 fl (80-100); Mean Platelet Volume 10.5 fl (7.4-10.4); Platelet Count Result 178 k/mm3 (150-375); Red Blood Count 1.81 M/mm3 (4.6-6.20); Red Cell Distribution Width 18.7 % (11.5-14.5); White Blood Count 5.8 K/mm3 (4.5-10.0)
[2023-09-15 22:23] LABS: Hemoglobin 5.7 g/dL (14.0-18.0)
[2023-09-15 22:24] LABS: Hematocrit 17.1 % (42.0-52.0)
[2023-09-15 22:25] LABS: INR 1.2; Partial Thromboplastin Time 34.7 SECONDS (22.3-36.8); Prothrombin Time 16.2 Seconds (11.1-14.7)
[2023-09-15 22:26] LABS: Albumin Level 2.1 g/dL (3.5-5.1); Anion Gap 6 mmol/L (8-16); Blood Urea Nitrogen 16 mg/dL (9-20); Calcium 7.2 mg/dL (8.4-10.2); Carbon Dioxide 24 mmol/L (22-30); Chloride 99 mmol/L (98-107); Estimated CRCL calculation 111 ml/min; Estimated Glomerular Filt Rate > 60; Glucose 144 mg/dL (65-110); Phosphorus 2.5 mg/dL (2.5-4.5); Potassium 4.4 mmol/L (3.4-5.0); Sodium 129 mmol/L (137-145)
[2023-09-15 22:49] LABS: Fibrinogen 289 mg/dl (215-510)
[2023-09-15 22:51] LABS: Magnesium 1.8 mg/dL (1.6-2.3)
[2023-09-15] MEDS: CALCIUM GLUC 1,000 MG/NS 50 ML 1,000 MG/50 ML BAG 100 MG IVPB (22:53)
[2023-09-15] MEDS: TUBING, BLOOD PLUM PUMP TUBING 1 EACH XX (23:49)
[2023-09-15] MEDS: SODIUM CHLORIDE 0.9% IV 250 ML 30 ML IV CONT (23:50)
[2023-09-15] MEDS: LIDOCAINE HCL 2% GEL UROJET 10 ML PKG MUCOUS MEM (23:52)
[2023-09-16] VITALS (15 sets, daily range): BP systolic 68–126; BP diastolic 42–81; PULSE 78–89; RESP 10–18; TEMP 36.6–37.1; O2SAT 98–100
--- NOTE | 2023-09-16 00:30 | PC.NURSE ---
This patient, Morris Leal, was transferred to [icu3 ] on 09/16/23 at 0030 for hypotension. Personal belongings sent with patient. Report given to [Yocasta DE GUZMAN ]. Appropriate documentation sent with patient.
--- NOTE | 2023-09-16 01:23 | PC.NURSE ---
This patient having large bloody clots expelled from rectum. Constantly oozing bright red blood. Critical low hemoglobin 5.7. [address] Singer called at Dr Rodriguez's request due to need for transfer nand being aware of patients procedures and what further procedures he may need. Dr Singer states he agrees with transfer but Dr Rodriguez must make calls because he is not the patient's doctor and patient needs a hospital with GI where they can do a colonoscopy or flexible sigmoidoscopy; he has rectal bleeding . This nurse initiated call with [place] transfer center, which Dr Rodriguez then took over. Patient becoming hypotensive so he was transferred to ICU. Dr Rodriguez placed central line. Multiple attempts to reach patients to make aware of transfer to ICU and pending transfers to either [facility] or [place]. No answer at either number, multiple messages left on cell phone.
--- NOTE | 2023-09-16 01:45 | PM.TDS ---
Transfer Discharge Sum: Prov Provider Date of admission: 09/14/23 10:47 Primary care physician: Trey Lane MD Admitting clinician: Lorenzo Baptiste MD Consults: 09/14/23 00:33 Consult to Physician Routine Comment: Consulting Provider: Rubén Singer Reason for consultation: Rectal bleed post op Has provider been notified: Yes Attending physician on discharge: Sona Rodriguez Discharging clinician: Sona Rodriguez Anticipated date of transfer: 09/16/23 Receiving physician/facility: [facility] Dr. Menchaca DS: Admitting Diagnosis Discharge Date 09/16/2023 Admitting Diagnosis Rectal bleeding, symptomatic anemia DS: Discharge Diagnosis Discharge Diagnosis (1) History of hemorrhoidectomy: Code(s): Z98.890 - Other specified postprocedural states Status: Acute (2) Rectal bleeding: Code(s): K62.5 - Hemorrhage of anus and rectum Status: Acute (3) Acute blood loss anemia: Code(s): D62 - Acute posthemorrhagic anemia Status: Acute (4) Hemorrhagic shock: Code(s): R57.8 - Other shock Status: Acute Plan 78-year-old male past medical history of aortic valve replacement with bioprosthetic aortic valve who had a colonoscopy on 08/24 that revealed bleeding internal hemorrhoids. He was referred to General surgery after being admitted for symptomatic anemia. Patient underwent hemorrhoidectomy 09/10/2023. He returned to the ER 09/13/2023 due to rectal bleeding and symptomatic anemia his hemoglobin at that time was 7.5. But the patient was witnessed to have multiple large volume stools ?approximately the size of a placenta?. Patient's repeat hemoglobin had dropped to 6.3. The patient was given 3 units of packed red blood cell transfusion. Repeat hemoglobin had improved to 7.9 but then again dropped that afternoon to 6.7. Patient received an additional 1 unit packed red blood cell transfusion. And repeat hemoglobin 7.4. No repeat hemoglobins had been obtained until nursing staff contacted me when patient started having multiple bloody bowel movements again. Patient's stat H&H at that time demonstrated hemoglobin of 5.7 and platelet count was greater than 150. Order was given for 3 units of packed red blood cell transfusion. Stat fibrinogen was checked as well as renal function panel. Patient's calcium was low. 1 g calcium gluconate was given. Fibrinogen was within normal limits. However patient continued to have large volume bright red blood per rectum with clots ranging between the size of a grapefruit and placenta. The patient did drop his blood pressures from the 120s to 140s down to the 60s. At that time the patient was symptomatic and speech became slurred he became diaphoretic and anxious. The patient's heart rate did climb into the 1 teens but improved after volume resuscitation. I transfer the patient to the ICU give the patient IV fluid bolus and infused blood rapidly. Patient's blood pressure improved to the low 100s. A central line was placed in the right groin. Vicente-Synephrine was ordered however was not started as the patient's blood pressures improved with volume resuscitation. The patient received a total of 3 units of packed red blood cells 2 units of FFP and platelets are being transfused at this time. I contacted multiple tertiary care facilities and eventually was able to arrange transfer to [facility] under the care of Dr. Menchaca. The patient being transported via air back. Repeat H&H after 2nd unit of blood was 6.7. After I had finished a central line the patient had yet another 2 large grapefruit sized bowel movements of maroon blood clot. We did not have GI Services and the general surgeon was contacted but declined, evaluate the patient. Vitals at the time of discharge: Temperature 98.3? pulse 78 respiratory rate 14 blood pressure 117/59 satting 100% on room air Patient had generalized pallor, marked conjunctival pallor, pupils ar
--- NOTE | 2023-09-16 01:46 | WPDPROCEDUR ---
Procedures Central Line Placement Right Femoral: Central Line Date: 09/16/23 Central Line Time: 01:00 Discussed w/ the patient/family/POA,the placement of a central venous catheter, including its clinical necessity/indication & associated potential risks, benifits and alternatives.: Yes The patient/family/POA understand(s) and acknowledge(s) the need to proceed with central venous catheter insertion as an important element of the patient's clinical management.: Yes Consent: I have discussed with the patient and/or surrogate, the non-emergent placement of a central venous catheter, including its clinical necessity/indication and associated potential risks and complications. The patient and/or surrogate understand(s) and acknowledge(s) the need to proceed with central venous catheter insertion as an important element of the patient's clinical management. Time Out Performed: Yes Patient Position: trendelenburg Patient placed on monitor/pulse ox: Yes Provider Prep: mask, sterile gown, sterile gloves, Max. sterile barrier precautions, cap and hand hygiene with conventional soap/water or alcohol based hand rub Central line prep: 2% Chlorhexidine scrub Local anesthesia used: lidocaine 1% Amount of anesthesia used (ml): 5 Sterile US Technique with sterile gel/sterile probe covers: Yes Central line lumen inserted: triple Cambodian: 7 Length (cm): 20 Depth of Insertion (cm): 20 Post Procedure: sutured in place, good blood return, all ports aspirated, flushed, capped, transparent dressing, hemostatic product, antimicrobial product, securement product and aseptic technique maintained throughout procedure Complications: none
--- NOTE | 2023-09-16 01:47 | PC.NURSE ---
Information given to [facility]. They are waiting for the charge nurse to assign the bed and will call when it has been assigned.
[2023-09-16 02:06] LABS: Hemoglobin 6.7 g/dL (14.0-18.0)
[2023-09-16 02:07] LABS: Hematocrit 20.3 % (42.0-52.0)
--- NOTE | 2023-09-16 02:53 | PC.NURSE ---
Report called to Gwendolyn at [facility]. 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 Spoke with patient's daughter Heather and she is aware of room and visiting hours for [facility] surgical ICU unit.
--- NOTE | 2023-09-16 02:57 | PC.NURSE ---
Air evac arrived to transport patient.
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
--- NOTE | 2023-09-16 04:36 | PC.NURSE ---
0400 per air evac Mary will be arriving at approximately 0500.
--- NOTE | 2023-09-16 04:55 | PC.NURSE ---
one unit FFP and platelets picked up from blood bank at same time Mary arrived. Air evac states they will initiate and chart transfusion of FFP and pheresis platelets.
--- NOTE | 2023-09-16 06:07 | PC.NURSE ---
Patient transferred to [facility] via [facility] at 0502. Daughter, Heather and Elizabeth RN ([place]) notified that patient has left the building. Update given regarding vital signs and blood products to be initiated by EMS. ( FFP and Platelets)
--- NOTE | 2023-09-16 07:58 | PM.IMPN ---
Subjective Date/time seen: 09/16/23 07:58 Objective Data Vital Signs Vital Signs: Vital Signs - 24 hr 09/15/23 08:00 09/15/23 11:29 09/15/23 12:00 Temperature 97.1 F L Pulse Rate 98 Respiratory Rate 20 Blood Pressure 144/66 H Pulse Oximetry 98 Oxygen Delivery Room Air Room Air 09/15/23 08:00 09/15/23 10:00 09/15/23 12:00 Temperature Pulse Rate 99 85 98 Respiratory Rate Blood Pressure Pulse Oximetry Oxygen Delivery 09/15/23 14:00 09/15/23 15:46 09/15/23 16:00 Temperature 97.7 F Pulse Rate 105 H 101 H 107 H Respiratory Rate 17 Blood Pressure 125/44 L Pulse Oximetry 99 Oxygen Delivery 09/15/23 16:00 09/15/23 18:00 09/15/23 20:45 Temperature Pulse Rate 104 H 114 H Respiratory Rate Blood Pressure Pulse Oximetry Oxygen Delivery Room Air 09/15/23 20:00 09/15/23 20:00 09/15/23 23:38 Temperature 97.7 F 97.3 F L Pulse Rate 106 H 87 Respiratory Rate 20 18 Blood Pressure 140/60 90/48 L Pulse Oximetry 98 99 Oxygen Delivery Room Air 09/15/23 23:44 09/16/23 00:00 09/16/23 00:09 Temperature 97.6 F 97.9 F Pulse Rate 87 83 Respiratory Rate 16 18 Blood Pressure 90/48 L 89/42 L 68/42 L Pulse Oximetry 99 98 Oxygen Delivery 09/16/23 00:14 09/16/23 00:23 09/16/23 00:40 Temperature 98.7 F Pulse Rate 89 Respiratory Rate 18 Blood Pressure 95/42 L 121/48 L 111/81 Pulse Oximetry 99 100 Oxygen Delivery 09/16/23 00:48 09/16/23 00:00 09/15/23 20:00 Temperature 98.7 F Pulse Rate 84 109 H Respiratory Rate 15 Blood Pressure 118/52 L Pulse Oximetry 100 Oxygen Delivery Room Air 09/16/23 00:00 09/15/23 22:00 09/16/23 02:00 Temperature 98.5 F Pulse Rate 86 84 82 Respiratory Rate 15 Blood Pressure 110/52 L Pulse Oximetry 99 Oxygen Delivery 09/16/23 02:12 09/16/23 02:28 09/16/23 02:42 Temperature 98.5 F 98.3 F 98.3 F Pulse Rate 83 78 78 Respiratory Rate 10 L 14 16 Blood Pressure 108/55 L 117/59 L 102/59 L Pulse Oximetry 100 100 100 Oxygen Delivery 09/16/23 02:52 09/16/23 03:08 09/16/23 03:39 Temperature 98.1 F 98.4 F 98.5 F Pulse Rate 81 82 89 Respiratory Rate 12 14 15 Blood Pressure 109/60 116/60 111/69 Pulse Oximetry 100 98 99 Oxygen Delivery 09/16/23 03:24 09/16/23 02:00 09/16/23 04:00 Temperature 98.5 F Pulse Rate 80 81 85 Respiratory Rate 16 Blood Pressure 126/64 Pulse Oximetry 98 Oxygen Delivery 09/16/23 04:00 09/16/23 04:00 Temperature 98.5 F Pulse Rate 80 80 Respiratory Rate 16 16 Blood Pressure 126/64 Pulse Oximetry 98 98 Oxygen Delivery Room Air Intake/Output Intake/Output: Intake & Output 09/13/23 09/14/23 09/15/23 09/16/23 23:59 23:59 23:59 23:59 Intake Total 0 2560 3660 1724 Output Total 1600 Balance 0 2560 2060 1724 Labs Labs: Laboratory Results - last 24 hr 09/13/23 09/15/23 09/15/23 21:45 21:57 22:03 WBC 5.8 RBC 1.81 L Hgb 5.7 L* Hct 17.1 L* MCV 94.5 MCH 31.5 MCHC 33.3 RDW 18.7 H Plt Count 178 MPV 10.5 H PT 16.2 H INR 1.2 APTT 34.7 Fibrinogen 289 Sodium 129 L Potassium 4.4 Chloride 99 Carbon Dioxide 24 Anion Gap 6 L BUN 16 Creatinine 0.60 L Estim Creat Clear Calc 111 Estimated GFR > 60 Glucose 144 H Calcium 7.2 L Phosphorus 2.5 Magnesium 1.8 Albumin 2.1 L Blood Type A Positive Antibody Screen Negative Crossmatch See Detail 09/16/23 01:41 WBC RBC Hgb 6.7 L* Hct 20.3 L* MCV MCH MCHC RDW Plt Count MPV PT INR APTT Fibrinogen Sodium Potassium Chloride Carbon Dioxide Anion Gap BUN Creatinine Estim Creat Clear Calc Estimated GFR Glucose Calcium Phosphorus Magnesium Albumin Blood Type Antibody Screen Crossmatch
== END 2023-09-16 05:00 | disposition short-term general hospital (02) | DRG 919 ==
LOC: ANHED 09-14 00:39 → ANHIMU 09-14 01:04 → ANHICU 09-18 09:57 → ANHIMU 09-18 09:57
PROVIDERS: Internal Medicine; Surgery; Admitting Provider Family Medicine; Emergency Provider Emergency Medicine; PCP Family Medicine; Visit Provider Internal Medicine
PROC: 0DCP8ZZ Extirpation of Matter from Rectum, Via Natural or Artificial Opening Endoscopic (ICD-10-PCS; principal; 2023-09-14 11:45)
DX: K91.840 Postprocedural hemorrhage of a digestive system organ or structure following a digestive system procedure (principal); R57.8 Other shock; K62.5 Hemorrhage of anus and rectum; D62 Acute posthemorrhagic anemia; E78.2 Mixed hyperlipidemia; I10 Essential (primary) hypertension; I25.10 Atherosclerotic heart disease of native coronary artery without angina pectoris; M13.842 Other specified arthritis, left hand; M13.841 Other specified arthritis, right hand; M13.812 Other specified arthritis, left shoulder; M13.811 Other specified arthritis, right shoulder; G62.9 Polyneuropathy, unspecified; Z95.2 Presence of prosthetic heart valve; N40.1 Benign prostatic hyperplasia with lower urinary tract symptoms; R39.12 Poor urinary stream; F17.210 Nicotine dependence, cigarettes, uncomplicated; E66.9 Obesity, unspecified; Z68.35 Body mass index [BMI] 35.0-35.9, adult
CPT/HCPCS: 36415; 36430; 80048; 80053; 80069; 82607; 82746; 83735; 84100; 85014; 85018; 85025; 85027; 85055; 85384; 85610; 85730; 86850; 86900; 86901; 86923; 96360; 99285; A9270; C1751; G0378; J0330; J0612; J0690; J1100; J2405; J2704; J3010; J7030; J7050; J7120; P9016; P9017; P9034